=== PATIENT | male | born 1935 | race Caucasian/White ===

== ENCOUNTER 2019-06-09 11:09 | Emergency (ER) | payer OTHER, SELFPAY ==
[2019-06-09 11:18] VITALS: BP 125/95; PULSE 72; RESP 18; TEMP 36.7; O2SAT 99
--- NOTE | 2019-06-09 11:37 | DI.RAD.S_ITS ---
PROCEDURE: XR HIP W PEL IF DONE RT 2V INDICATIONS: R hip nontraumatic pain TECHNIQUE: AP pelvis with lateral view(s) of the right hip(s). COMPARISON: [facility], , ABDOMEN ACUTE SERIES, 05/21/2017, 8:56. FINDINGS: Bones: No fractures or dislocations. Pelvic ring appears intact. No suspicious bony lesions. There is mild to moderate superior joint space narrowing seen of both hips, with associated remodeling changes with subchondral sclerosis and osteophyte formation. Soft tissues: The visualized bowel gas pattern is normal. No suspicious soft tissue calcifications. 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 Dictated by: Kelton Lane M.D. on 06/09/2019 at 11:03 Approved by: Kelton Lane M.D. on 06/09/2019 at 11:05
--- NOTE | 2019-06-09 11:41 | ED_ITS ---
HPI - Back Pain/Injury <JUAN Rod - Last Filed: 06/09/19 23:32> General Chief Complaint: Back Pain/Injury Stated Complaint: R HIP/LEG/BACK PAIN Time Seen by Provider: 06/09/19 11:16 Source: patient and family Mode of arrival: wheelchair Limitations: no limitations History of Present Illness HPI Narrative: This is a 89-year-old gentleman, prior smoker, presents with with chief complaint of right lateral hip pain which radiates to right posterior calf for several months. However the severity of pain has been worse recently and has been the ability hitting the patient. Usually uses a walker or cane for mobility. Patient denies incontinence, tingling numbness to groin areas, fever/chills, rash on his back. Patient has been followed with his primary care physician on this back pain issues but PCP is away for another week. Patient has established with pain management and physical therapy in the past as well had not follow through. Patient also states he has urinary difficulty with the flow but no other urinary symptoms such as discomfort, frequency, urgency. Related Data Home Medications Medication Instructions Recorded Confirmed allopurinol 300 mg PO HS #0 06/30/12 metoprolol tartrate 100 mg PO BID #0 01/24/13 warfarin [Coumadin] 10 mg PO SEE INSTRUCTIONS #0 01/24/13 warfarin [Coumadin] 7.5 mg PO SEE INSTRUCTIONS #0 06/07/17 polyethylene glycol 3350 [Miralax] 17 gm PO QDAY #0 07/15/17 Previous Rx's Medication Instructions Recorded cyclobenzaprine 5 mg PO BEDTIME PRN #7 tab 06/09/19 lidocaine 1 patch TOP DAILY #15 each 06/09/19 prednisone 40 mg PO DAILY 4 Days #8 tab 06/09/19 Allergies Allergy/AdvReac Type Severity Reaction Status Date / Time lisinopril [LISINOPRIL] AdvReac Mild NAUSEA Verified 06/09/19 11:26 Review of Systems <JUAN Rod - Last Filed: 06/09/19 23:32> Review of Systems General: Denies fever, chills, fatigue, malaise, sweats. HEENT: Denies sinus pain, ear pain, sore throat, difficulty swallowing, dizziness. Respiratory: Denies dyspnea, cough, wheezing, hemoptysis, sputum. Cardiovascular: Denies chest pain, palpitations, orthopnea, edema. Gastrointestinal: Denies nausea, vomiting, abdominal pain, diarrhea, constipation, melena. : See HPI Musculoskeletal: See HPI Skin: Denies rash, skin lesions, or other. Neurologic: Denies weakness, headache, numbness, change in speech, confusion, seizures, incoordination. Psychiatric: No concerning psychosocial issues. 12-point review of systems is negative except for those stated above. PFSH <JUAN Rod - Last Filed: 06/09/19 23:32> Medical History (Updated 06/09/19 @ 23:17 by JUAN Rod) Afib (Acute) Back pain (Acute) Constipation (Chronic) Tremor of right hand (Chronic) Social History Smoking Status: Former smoker Social History Smoking Status: Former smoker Exam <JUAN Rod - Last Filed: 06/09/19 23:32> Narrative Exam Narrative: GEN: Alert, oriented x 3, well appearing and nourished, and in no acute distress. Head: Normal cephalic, atraumatic. No scalp or temporal tenderness, palpable mass or rash. EYES: Pupils are equal, round, and reactive to light and accommodation. Extraocular muscles are intact bilaterally. There is no subconjunctival hemorrhage, exudate and sclera non-icteric. ENT: Nose without bleeding, purulent discharge. Mucous membrane moist, no mucosal lesion. Throat without erythema, tonsillar hypertrophy or exudate. Uvula in midline, airway patent. Neck: Trachea in midline. No JVD, non-tender without lymphadenopathy. No masses or thyroid megaly. Supple, non-tender and no meningeal signs. CARDIAC: Normal regular rate and rhythm without murmurs, gallops, or rubs. No chest wall tenderness. No peripheral edema, cyanosis or pallor. Capillary refill is less than 2 seconds. RESPIRATORY: Lungs are cleat to auscultate bilaterally. No cough, wheezes, rales, or rhonchi. No stridor, respiratory distress, increase work of breathing, or accessary muscle used. ABD: Abdomen soft, nontender and non-distended. No guarding or rebound tenderness to palpate. Bowel sounds are normal in all 4 quadrants. There is no palpable masses or organomegaly. EXT: Full painless ROM of all extremities with no loss of sensation, strength, effusion or edema. SKIN: Warm, dry, normal color for patient. No erythema, lesions or rash over visible areas. BACK: Nontender without deformity or crepitance. No flank tenderness. Postive for R leg raise test. 2+ Patella tendon reflex on RLE, 1+ PTR on LLE. No rashe s. No swelling, edema, erythema noted in low back or R hip. NEUROLOGICAL: Alert and oriented to place, time and person. Sensation and motor function intact bilaterally. No facial droops, dysphasia. PSYCHIATRIC: Good judgement and reason, without hallucinations, abnormal affect or abnormal behaviors during the examination. Patient is not suicidal. Initial Vital Signs Initial Vital Signs: Vital Signs Temperature 98.1 F 06/09/19 11:18 Pulse Rate 72 06/09/19 11:18 Respiratory Rate 18 06/09/19 11:18 Blood Pressure 125/95 H 06/09/19 11:18 Pulse Oximetry 99 06/09/19 11:18 <Shorty Shirley DO - Last Filed: 06/12/19 19:10> Initial Vital Signs Initial Vital Signs: Vital Signs Temperature 98.1 F 06/09/19 11:18 Pulse Rate 72 06/09/19 11:18 Respiratory Rate 18 06/09/19 11:18 Blood Pressure 125/95 H 06/09/19 11:18 Pulse Oximetry 99 06/09/19 11:18 Scores <JUAN Rod - Last Filed: 06/09/19 23:32> GCS [place] coma scale eye opening: Spontaneous Mary coma scale verbal response: Orientated Mary coma scale motor response: Obey commands Mary coma scale total score: 15 Course <JUAN Rod - Last Filed: 06/09/19 23:32> Orders Ordered: Discontinued Medications Cyclobenzaprine HCl (Flexeril) 5 mg PO NOW ONE Stop: 06/09/19 11:38 Last Admin: 06/09/19 11:52 Dose: 5 mg Lidocaine (Lidoderm) 1 each TOP NOW ONE Stop: 06/09/19 12:38 Last Admin: 06/09/19 12:58 Dose: 1 each Prednisone (Deltasone) 40 mg PO NOW ONE Stop: 06/09/19 11:38 Last Admin: 06/09/19 11:52 Dose: 40 mg Vital Signs - 8 hr 06/09/19 11:18 06/09/19 12:19 Temperature 98.1 F Pulse Rate 72 66 Respiratory Rate 18 Blood Pressure 125/95 H Blood Pressure [Left Arm] 124/70 Pulse Oximetry 99 97 <Shorty Shirley DO - Last Filed: 06/12/19 19:10> Orders Ordered: Discontinued Medications Cyclobenzaprine HCl (Flexeril) 5 mg PO NOW ONE Stop: 06/09/19 11:38 Last Admin: 06/09/19 11:52 Dose: 5 mg Lidocaine (Lidoderm) 1 each TOP NOW ONE Stop: 06/09/19 12:38 Last Admin: 06/09/19 12:58 Dose: 1 each Prednisone (Deltasone) 40 mg PO NOW ONE Stop: 06/09/19 11:38 Last Admin: 06/09/19 11:52 Dose: 40 mg Vital Signs - 8 hr 06/09/19 11:18 06/09/19 12:19 Temperature 98.1 F Pulse Rate 72 66 Respiratory Rate 18 Blood Pressure 125/95 H Blood Pressure [Left Arm] 124/70 Pulse Oximetry 99 97 MDM - Back Pain/Injury <JUAN Rod - Last Filed: 06/09/19 23:32> Differential Diagnosis Differential diagnosis: Likely lumbar radiculopathy, sciatica, strain of lumbar region, pyelonephritis and discitis Medical Records Attestation: I reviewed the patient's medical records. Lab Data Urine Dip Bedside Urine Glucose Negative Bedside Urine Bilirubin - Negative Bedside Urine Ketone - Negative Urine Specific Comins 1.020 Bedside Urine Occult Blood - Negative Bedside Urine pH 6.0 Bedside Urine Protein + 30 Bedside Urine Urobilinogen 1+ 2mg Bedside Urine Nitrite - Negative Bedside Urine Leukocytes - Negative Esterase Imaging Data XR-Hip R: Radiologist's impression: [address] [address] XRay Report Signed Patient: Sreekanth Erickson WMR#: [id number] : 1935Acct:[id number] Age/Sex: 84 / MDate of Service: 06/09/19 Loc: ED Accession Number: [id number] Procedure: XR hip w pel if done RT 2V Ordering Provider: [place] PROCEDURE: XR HIP W PEL IF DONE RT 2V INDICATIONS: R hip nontraumatic pain TECHNIQUE: AP pelvis with lateral view(s) of the right hip(s). COMPARISON: [facility], , ABDOMEN ACUTE SERIES, 05/21/2017, 8:56. FINDINGS: Bones: No fractures or dislocations. Pelvic ring appears intact. No suspicious bony lesions. There is mild to moderate superior joint space narrowing seen of both hips, with associated remodeling changes with subchondral sclerosis and osteophyte formation. Soft tissues: The visualized bowel gas pattern is normal. No suspicious soft tissue calcifications. 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 Dictated by: Kelton Lane M.D. on 06/09/2019 at 11:03 Approved by: Kelton Lane M.D. on 06/09/2019 at 11:05 [facility] Narrative Medical decision making narrative: This is a 84-year-old male presents with spouse with chronic right-sided low back pain/hip pain that radiates to the right posterior calf. Patient currently uses gabapentin for pain but does not think this helps with his pain. According to the patient and spouse, patient had completed physical therapy last year for couple of sessions but did not follow through. Patient also was evaluated by paint specialist but had not follow through with the recommendations. Spouse answers most of the questions for patient and expresses her concerns during the exam. She reports is hoping to find the home health care case manager assistance since they both now have difficulty with health and pain issues. Patient reports increasing pain with movements and ambulation. However, there was no neurologic deficit per exam. Urine sample was obtained for difficulty initiating urine stream, has no indications for infection. Right hip x-ray was done with no acute findings such as fractures or dislocations. However there was mild to moderate degenerative changes are seen on both hips. The patient was medicated with oral prednisone, Flexeril. Patient currently takes Coumadin and is not to take additional NSAIDs. During the stay in the ED, patient's spouse informed the nursing staff that very briefly patient had difficult time moving his right arm. Neurological exam was done with normal findings. The patient and spouse informed could be from Flexeril that patient was given for muscle relaxant. Lidocaine patch was applied on affected hip area for discomfort. Patient was able to ambulate with a walker in ED in stable gait and patient reports improved in back/hip discomfort. Return precautions were discussed with patient and spouse. Questions answered to apparent satisfaction. Patient discharged to home with a short course of steroids, Flexeril for night dose, and lidocaine patch. Flexeril medication precautions also discussed with patient and spouse. <Shorty Shirley, DO - Last Filed: 06/12/19 19:10> Lab Data Urine Dip Bedside Urine Glucose Negative Bedside Urine Bilirubin - Negative Bedside Urine Ketone - Negative Urine Specific Comins 1.020 Bedside Urine Occult Blood - Negative Bedside Urine pH 6.0 Bedside Urine Protein + 30 Bedside Urine Urobilinogen 1+ 2mg Bedside Urine Nitrite - Negative Bedside Urine Leukocytes - Negative Esterase Discharge Plan Departure Patient Disposition: Home Clinical Impression: Back pain Qualifiers: Back pain location: low back pain Chronicity: chronic Back pain laterality: right Sciatica presence: with sciatica Sciatica laterality: sciatica of right side Qualified Code(s): M54.41 - Lumbago with sciatica, right side Discharge Date/Time: 06/09/19 14:17 Interventions: ED Discharge Assessment Last Done: 06/09/19 14:03 Instructions: DI for Back Pain With Sciatica Activity Restrictions/Additional Instructions: You have been diagnosed with [right low back/hip pain radiating to calf. Per x- ray test today such as fractures or dislocation but there was some degenerative changes noted in bilateral hip]. What to do: *Take your medications as directed. He can take Tylenol as needed for pain. He can use lidocaine patch on painful area on for 12 hours and off for 12 hours. Please take Flexeril as needed for muscle relaxant at night. This medication can cause drowsiness so please take precautions as not driving, not operating heavy equipment, not drinking alcohol. Prednisone can increase your blood sugar and may interferes with her sleep. *Follow up with your primary care provider in 2-3 days, call for an appointment. Let them know you were seen in the ED and that we asked you to be seen in follow up. *Return to ED if you have any new, worsening, or concerning symptoms, such as [increasing pain, fever, rash, tingling numbness/weakness to her extremities or groin area, chest pain, breathing difficulty, any acute concerns]. Prescriptions: New prednisone 20 mg tablet 40 mg PO DAILY 4 Days Qty: 8 RF: 0 lidocaine 5 % adhesive patch,medicated 1 patch TOP DAILY Qty: 15 RF: 0 cyclobenzaprine 5 mg tablet 5 mg PO BEDTIME PRN (Reason: muscle spasm) Qty: 7 RF: 0 No Action allopurinol 100 MG tablet 300 mg PO HS Qty: 0 RF: 0 metoprolol tartrate 100 MG tablet 100 mg PO BID Qty: 0 RF: 0 warfarin [Coumadin] 5 MG tablet 10 mg PO SEE INSTRUCTIONS Qty: 0 RF: 0 warfarin [Coumadin] 5 MG tablet 7.5 mg PO SEE INSTRUCTIONS Qty: 0 RF: 0 polyethylene glycol 3350 [Miralax] 119 GM powder 17 gm PO QDAY Qty: 0 RF: 0 Referrals: Martin Puente MD [Primary Care Provider] - <Shorty Shirley DO - Last Filed: 06/12/19 19:10> Cosign ED Attending Veronica Attestation: I was available for consultation during this patient's emergency department encounter
[2019-06-09] MEDS: CYCLOBENZAPRINE 5 MG TABLET PO (11:52)
[2019-06-09] MEDS: predniSONE 20 MG TABLET 40 MG PO (11:52)
[2019-06-09 12:19] VITALS: BP 124/70; PULSE 66; O2SAT 97
--- NOTE | 2019-06-09 12:33 | PC.NURSE ---
pt reports after the flexeril that his right arm was feeling weak. New, DATA PROCESSING SYSTEMS CONSULTANT at bedside to evaluate.
[2019-06-09] MEDS: LIDOCAINE PATCH 1 EACH ADH..PATCH TOP (12:58)
[2019-06-09 13:31] VITALS: BP 126/69; PULSE 64; RESP 23; O2SAT 97
== END 2019-06-09 14:17 | disposition home or self-care (01) ==
PROVIDERS: Emergency Provider Nurse Practitioner Family; PCP Family Medicine
DX: M54.41 Lumbago with sciatica, right side (principal)
CPT/HCPCS: 73502; 81003; 99282; 99284

== ENCOUNTER 2019-07-11 07:51 | Emergency (ER) | payer OTHER, SELFPAY ==
--- NOTE | 2019-07-11 07:59 | DI.CT.S_ITS ---
PROCEDURE: CT HEAD/BRAIN WO CON INDICATIONS: stroke symptoms x3 days TECHNIQUE: Noncontrast 4.5 mm thick angled axial sections acquired from the foramen magnum to the vertex, with coronal and sagittal reformats. For radiation dose reduction, the following was used: automated exposure control, adjustment of mA and/or kV according to patient size. COMPARISON: None. FINDINGS: Image quality: Excellent. CSF spaces: Basal cisterns are patent. There is a oval hyperdense extra-axial collection along right high parietal convexity and measures up to 1.2 cm in thickness consistent with acute subdural hematoma. No other area of extra-axial fluid collection. The ventricles are symmetric in size and shape. Brain: There is no evidence of acute intraparenchymal hemorrhage. The There is cerebral volume loss for age, with resultant ventricular and sulcal prominence. There are periventricular and deep white matter chronic small vessel ischemic changes. There is intracranial internal carotid artery atherosclerosis. Skull and face: Calvarium and visualized facial bones appear intact, without suspicious lesions. Sinuses: Visualized sinuses and mastoids are clear. IMPRESSION: 1. Acute appearing right high parietal subdural hematoma measuring up to 1.2 cm in thickness with mild mass effect on the adjacent right cerebral hemisphere. 2. No acute intraparenchymal hemorrhage. No midline shift. 3. Age-appropriate atrophy and mild periventricular white matter chronic ischemic changes. Findings were reported to Dr. Valle in ER at 8:25 AM on 07/11/19. Dictated by: Alexis Miller M.D. on 07/11/2019 at 8:20 Approved by: Alexis Miller M.D. on 07/11/2019 at 8:26
[2019-07-11 08:01] VITALS: BP 144/105; PULSE 76; RESP 16; TEMP 36.8; O2SAT 97; BMI 36.0
--- NOTE | 2019-07-11 08:03 | ED.NEUROSD ---
HPI - Neuro Symptoms/Deficit General Chief Complaint: Neuro Symptoms/Deficit Stated Complaint: Stroke like symptoms Time Seen by Provider: 07/11/19 07:51 Source: patient and EMS Mode of arrival: EMS Limitations: no limitations History of Present Illness HPI Narrative: 84-year-old male former smoker with history of hypertension, hyperlipidemia and AFib on Coumadin presents by EMS with 3 days of ongoing neurologic symptoms including left hand difficulty and trouble with speech. The symptoms started 3 days ago and have not improved, this patient was not activated as a code stroke as we do not fit any time lines. Patient was transported by EMS. His primary care provider is Dr. Puente. He denies any pain, trauma or falls. Onset (ago): day(s) Location: speech and left face History of same: No Severity: moderate Quality: weak and tingling Relieving factors: none Exacerbating factors: none On Anticoagulants: Yes Associated symptoms: denies other symptoms Treatments Prior to Arrival: none Related Data Home Medications Medication Instructions Recorded Confirmed allopurinol 300 mg PO HS #0 06/30/12 07/11/19 metoprolol tartrate 100 mg PO BID #0 01/24/13 07/11/19 warfarin [Coumadin] 10 mg PO SEE INSTRUCTIONS #0 01/24/13 07/11/19 warfarin [Coumadin] 7.5 mg PO SEE INSTRUCTIONS #0 06/07/17 07/11/19 polyethylene glycol 3350 [Miralax] 17 gm PO QDAY #0 07/15/17 gabapentin 600 mg PO BID 07/11/19 07/11/19 Previous Rx's Medication Instructions Recorded cyclobenzaprine 5 mg PO BEDTIME PRN #7 tab 06/09/19 lidocaine 1 patch TOP DAILY #15 each 06/09/19 Allergies Allergy/AdvReac Type Severity Reaction Status Date / Time lisinopril [LISINOPRIL] AdvReac Mild NAUSEA Verified 07/11/19 08:06 Review of Systems Constitutional Constitutional: Denies chills, Denies fatigue, Denies fever(s), Denies frequent falls, Denies lethargy and Reports weakness Eyes Eyes: Denies change in vision, Denies eye discharge, Denies irritation and Denies loss of vision ENT Ears, Nose, Mouth, and Throat: Denies change in voice, Denies dizziness, Denies neck pain, Denies sore throat and Denies throat swelling Cardiovascular Cardiovascular: Denies chest pain, Denies irregular heart rhythm, Denies lightheadedness, Denies palpitations, Denies dyspnea, Denies dyspnea on exertion and Denies orthopnea Respiratory Respiratory: Denies cough, Denies dyspnea, Denies dyspnea on exertion and Denies wheezing Gastrointestinal Gastrointestinal: Denies abdominal pain, Denies change in bowel habits, Denies diarrhea, Denies nausea and Denies vomiting Genitourinary Genitourinary: Denies hematuria, Denies flank pain, Denies urinary incontinence and Denies urinary urgency Musculoskeletal Musculoskeletal: Denies back pain, Denies muscle weakness, Denies neck pain, Denies numbness and Denies tingling Integumentary/Breasts Skin/Breast: Denies pruritus, Denies erythema, Denies rash and Denies wounds Neurologic Neurologic: Reports abnormal speech, Denies behavioral changes, Denies confusion, Denies dizziness, Denies frequent falls, Denies loss of vision, Denies numbness, Denies tingling and Reports weakness Psychiatric Psychiatric: Denies anxiety, Denies behavioral changes, Denies confusion, Denies depression, Denies homicidal ideation and Denies suicidal ideation Endocrine Endocrine: Denies fatigue, Denies flushing and Denies palpitations Hematologic/Lymphatic Hematologic/Lymphatic: Denies easy bruising Allergic/Immunologic Allergic/Immunologic: Denies urticaria, Denies throat swelling and Denies wheezing [facility] Medical History Afib (Acute) Back pain (Acute) Constipation (Chronic) Tremor of right hand (Chronic) Social History Smoking Status: Former smoker Social History Smoking Status: Former smoker Exam Narrative Exam Narrative: GENERAL: [84] year old patient appears stated age. Well-nourished, well-developed patient, in mild distress. HEAD: Atraumatic. Normocephalic. EYES: Pupils equal round and reactive. Extraocular motions intact. No scleral icterus. No injection or drainage. ENT: Nose without bleeding, purulent drainage. Throat without erythema, tonsillar hypertrophy or exudate. Airway patent. NECK: Trachea midline. Non tender CARDIOVASCULAR: Irregular rate and rhythm without murmurs, gallops, or rubs. RESPIRATORY: Clear to auscultation. Breath sounds equal bilaterally. No wheezes, rales, or rhonchi. GASTROINTESTINAL: Abdomen soft, non-tender, nondistended. EXTREMITIES: No edema or joint tenderness. BACK: Nontender without deformity or crepitance. No flank tenderness. NEURO: AOx3. SKIN: No rash or erythema of visible areas Initial Vital Signs Initial Vital Signs: Vital Signs Temperature 98.3 F 07/11/19 08:01 Pulse Rate 76 07/11/19 08:01 Respiratory Rate 16 07/11/19 08:01 Blood Pressure 144/105 H 07/11/19 08:01 Pulse Oximetry 97 07/11/19 08:01 Scores NIH Stroke Scale Level of Conciousness: Alert, keenly responsive Ask month/age: Answers both questions correctly. Open/close eyes, close hand: Performs both tasks correctly Best gaze horizontal: Normal Visual manzano: No visual loss Facial palsy: Minor paralysis, flattened nasolabial fold, asymmetry on smiling Left arm drift: Drifts down, not to bed Right arm drift: No drift for full 10 sec Left leg drift: No drift for full 10 sec Right leg drift: No drift for full 10 sec Limb ataxia: Present in one limb Sensory on face/arms/legs: Normal, no sensory loss Best language: No aphasia, normal Dysarthria: Mild to mod,some slurring Extinction or inattention: No abnormality Total NIH Stroke scale score: 4 Course Orders Ordered: ED Orders 07/11/19 07:59 CT head/brain wo con Stat Urine Drug Screen, Rapid Stat EKG-12 Lead Stat 07/11/19 08:19 Basic Metabolic Panel Stat Complete Blood Count AUTO DIFF Stat Partial Thromboplastin Time Stat Prothrombin Time INR Stat Sodium Chloride (Normal Saline 0.9%) 1,000 mls @ 150 mls/hr IV CONT SHRUTHI Last Admin: 07/11/19 08:16 Dose: 150 mls/hr Documented by: MACK Discontinued Medications Aspirin (Aspirin Chew) 324 mg PO NOW ONE Stop: 07/11/19 08:00 Last Admin: 07/11/19 08:15 Dose: 324 mg Documented by: MACK Phytonadione 10 mg/ Dextrose 51 mls @ 102 mls/hr IV NOW ONE Stop: 07/11/19 08:29 Last Admin: 07/11/19 08:47 Dose: 102 mls/hr Documented by: REYES Prothrombin Complex Concent ( Human) 2,500 unit/Miscellaneous 100 mls @ 892.08 mls/hr IV NOW ONE; Protocol Stop: 07/11/19 08:43 Last Infusion: 07/11/19 09:08 Dose: 0 unit/kg/min, 0 mls/hr Documented by: Admin: 07/11/19 08:58 Dose: 3 unit/kg/min, 892.08 mls/hr Documented by: MACK Consultations Consultation #1: calls to [facility], and [facility] Dr. Lucas ([facility]) happy to accept. No strict BP goals [facility] - give consent to transfer to [facility] and will make a note in their records Dr. Puente called to give update Patient ([place]) will arrive at [facility] by POV. [phone] (home phone), she has no cell phone Vital Signs Vital signs: Vital Signs - 8 hr 07/11/19 08:01 07/11/19 08:30 Temperature 98.3 F Pulse Rate 76 69 Respiratory Rate 16 27 H Blood Pressure 144/105 H Blood Pressure [Left Arm] 144/88 H Pulse Oximetry 97 94 MDM - Neuro Symptoms/Deficit Lab Data Attestation: I reviewed the patient's lab results. Result diagrams: 07/11/19 08:19 07/11/19 08:19 Labs: Lab Results 07/11/19 07/11/19 07/11/19 Range/Units 08:19 08:19 08:19 WBC 8.3 (4.5-11.0) X10^3/uL RBC 4.69 (4.5-5.9) X10^6/uL Hgb 15.1 (13.5-17.5) g/dL Hct 44.6 (41-53) % MCV 95.0 (80-100) fL MCH 32.3 (26-34) PG MCHC 34.0 (30-36) % RDW 15.7 H (11.6-14.8) % Plt Count 165 (150-400) X10^3/uL Neut % (Auto) 69.2 (50-75) % Lymph % (Auto) 16.4 L (25-40) % [place] % (Auto) 10.9 (3-14) % Eos % (Auto) 3.0 (2-4) % Baso % (Auto) 0.5 (0-2) % Neut # (Auto) 5800 (6829-3700) /uL Lymph # (Auto) 1400 (6445-6018) /uL [place] # (Auto) 900 (0-900) /uL Eos # (Auto) 300 (0-450) /uL Baso # (Auto) 0 (0-100) /uL PT 25.4 H (10.1-12.7) SECONDS INR 2.2 H (0.9-1.3) APTT 44 H (26.4-36.2) SECONDS Sodium 140 (137-145) mmol/L Potassium 5.0 (3.4-5.1) mmol/L Chloride 103 (98-107) mmol/L Carbon Dioxide 28 (22-32) mmol/L BUN 29 H (9-20) mg/dL Creatinine 1.10 (0.66-1.25) mg/dL Estimated GFR > 60.0 (>60) mL/min BUN/Creatinine Ratio 26.4 H (6-22) Glucose 106 (80-110) mg/dL Calcium 9.9 (8.4-10.2) mg/dL Point of Care Testing Glucose POC [address] scan - head: Radiologist's impression: [address] [address] [address] Scan Report Signed Patient: Sreekanth Erickson WMR#: [id number] : 6Acct:[id number] Age/Sex: 84 / MDate of Service: 07/11/19 Loc: ED Accession Number: [id number] Procedure: CT head/brain wo con Ordering Provider: Luis Felipe Valle D.O. PROCEDURE: CT HEAD/BRAIN WO CON INDICATIONS: stroke symptoms x3 days TECHNIQUE: Noncontrast 4.5 mm thick angled axial sections acquired from the foramen magnum to the vertex, with coronal and sagittal reformats. For radiation dose reduction, the following was used: automated exposure control, adjustment of mA and/or kV according to patient size. COMPARISON: None. FINDINGS: Image quality: Excellent. CSF spaces: Basal cisterns are patent. There is a oval hyperdense extra-axial collection along right high parietal convexity and measures up to 1.2 cm in thickness consistent with acute subdural hematoma. No other area of extra-axial fluid collection. The ventricles are symmetric in size and shape. Brain: There is no evidence of acute intraparenchymal hemorrhage. The There is cerebral volume loss for age, with resultant ventricular and sulcal prominence. There are periventricular and deep white matter chronic small vessel ischemic changes. There is intracranial internal carotid artery atherosclerosis. Skull and face: Calvarium and visualized facial bones appear intact, without suspicious lesions. Sinuses: Visualized sinuses and mastoids are clear. IMPRESSION: 1. Acute appearing right high parietal subdural hematoma measuring up to 1.2 cm in thickness with mild mass effect on the adjacent right cerebral hemisphere. 2. No acute intraparenchymal hemorrhage. No midline shift. 3. Age-appropriate atrophy and mild periventricular white matter chronic ischemic changes. Findings were reported to Dr. Valle in ER at 8:25 AM on 07/11/19. Dictated by: Alexis Miller M.D. on 07/11/2019 at 8:20 Approved by: Alexis Miller M.D. on 07/11/2019 at 8:26 MDM Narrative Medical decision making narrative: 84M on coumadin for afib with stroke symptoms for 3 days. Absolutely denies any trauma, even slight head bumps. CT notes SDH with minimal shift. INR 2.2, patient given Vit K and KCentra. Bone contacted, [facility] is appropriate facility. [facility] happy to accept. Patient and family have been informed and have had questions answered to their apparent satisfaction. Images pushed. DEANA paperwork signed and filled out Discharge Plan Departure Patient Disposition: Xfer Acute [facility] Clinical Impression: Warfarin anticoagulation, Acute subdural hematoma Prescriptions: No Action allopurinol 100 MG tablet 300 mg PO HS Qty: 0 RF: 0 metoprolol tartrate 100 MG tablet 100 mg PO BID Qty: 0 RF: 0 warfarin [Coumadin] 5 MG tablet 10 mg PO SEE INSTRUCTIONS Qty: 0 RF: 0 warfarin [Coumadin] 5 MG tablet 7.5 mg PO SEE INSTRUCTIONS Qty: 0 RF: 0 polyethylene glycol 3350 [Miralax] 119 GM powder 17 gm PO QDAY Qty: 0 RF: 0 gabapentin 300 mg Capsule 600 mg PO BID RF: 0 lidocaine 5 % adhesive patch,medicated 1 patch TOP DAILY Qty: 15 RF: 0 cyclobenzaprine 5 mg tablet 5 mg PO BEDTIME PRN (Reason: muscle spasm) Qty: 7 RF: 0 Referrals: Martin Puente MD [Primary Care Provider] -
[2019-07-11] MEDS: ASPIRIN 81 MG CHEW TAB 324 MG PO (08:15)
[2019-07-11] MEDS: SODIUM CHLORIDE 0.9% 1,000 ML 150 ML IV (08:16)
[2019-07-11 08:30] VITALS: BP 144/88; PULSE 69; RESP 27; O2SAT 94
[2019-07-11 08:31] LABS: Add Manual Diff / Slide Review NO; Basophils Absolute Auto 0 /uL (0-100); Basophils Percent Auto 0.5 % (0-2); Eosinophils Absolute Auto 300 /uL (0-450); Hematocrit 44.6 % (41-53); Hemoglobin 15.1 g/dL (13.5-17.5); Lymphocytes Absolute Auto 1400 /uL (1100-4500); Lymphocytes Percent Auto 16.4 % (25-40); Mean Corpuscular Hemoglobin 32.3 PG (26-34); Monocytes Absolute Auto 900 /uL (0-900); Monocytes Percent Auto 10.9 % (3-14); Neutrophils Absolute Auto 5800 /uL (1500-7000); Neutrophils Percent Auto 69.2 % (50-75); Platelet Count 165 X10^3/uL (150-400); Red Blood Cell Count 4.69 X10^6/uL (4.5-5.9); Red Cell Distribution Width 15.7 % (11.6-14.8); White Blood Cell Count 8.3 X10^3/uL (4.5-11.0)
[2019-07-11 08:35] LABS: INR 2.2 (0.9-1.3); Prothrombin Time 25.4 SECONDS (10.1-12.7)
[2019-07-11 08:37] LABS: PTT Partial Thromboplastin Tim 44 SECONDS (26.4-36.2)
[2019-07-11 08:40] LABS: BUN Creatinine Ratio 26.4 (6-22); Blood Urea Nitrogen 29 mg/dL (9-20); Calcium 9.9 mg/dL (8.4-10.2); Carbon Dioxide 28 mmol/L (22-32); Chloride 103 mmol/L (98-107); Estimated Glomerular Filt Rate > 60.0 mL/min (>60); Glucose 106 mg/dL (80-110); HEMOLYSIS < 15 (0-50); Sodium 140 mmol/L (137-145)
[2019-07-11] MEDS: PHYTONADIONE (VIT K1) 10 MG in DEXTROSE 5 % IN WATER 50 ML 102 ML IV (08:47)
[2019-07-11] MEDS: PROTHROMBIN CPLX(PCC)4FACT 2,500 UNIT in ISOOSMOTIC VEHICLE 0 ML 892.08 ML IV (08:58)
[2019-07-11 09:27] VITALS: BP 142/83; PULSE 73; RESP 17; O2SAT 94
== END 2019-07-11 09:29 | disposition short-term general hospital (02) ==
PROVIDERS: Emergency Provider Emergency Medicine; PCP Family Medicine
DX: S06.5X0A Traumatic subdural hemorrhage without loss of consciousness, initial encounter (principal); Z79.01 Long term (current) use of anticoagulants
CPT/HCPCS: 36415; 70450; 80048; 82962; 85025; 85610; 85730; 93005; 96361; 96374; 99283; 99291; 99292; C9132; J3430

== ENCOUNTER 2019-09-09 14:07 | Emergency (ER) | payer OTHER, SELFPAY ==
--- NOTE | 2019-09-09 14:18 | DI.RAD.S_ITS ---
PROCEDURE: XR ACUTE ABDOMEN SERIES INDICATIONS: constipation, recent feeding tube removal per pt TECHNIQUE: One view chest and two views of the abdomen were acquired. COMPARISON: [facility], , ABDOMEN ACUTE SERIES, 05/21/2017, 8:56. FINDINGS: Surgical changes and devices: Postoperative changes of the lower cervical spine are not well characterized. Chest: Elevation of the right diaphragm is new since the prior study. There is mild linear atelectasis at the right lung base. Otherwise, the lungs are well aerated. There is no large effusion or pneumothorax. Heart size is enlarged. No pleural effusions. No pneumoperitoneum. There is aortic atherosclerosis. Abdomen: Bowel gas no air-filled distended small bowel loops are identified demonstrating air-fluid levels. Contrast material is seen within the distal small bowel and colon. Large amount of stool is seen throughout the colon. No suspicious calcifications. Visualized solid organ contours appear normal. Bones: No suspicious bony lesions. IMPRESSION: 1. Findings are suggestive of prominent constipation. There is no bowel obstruction. 2. Elevated right diaphragm is new since the prior study and may be related to atelectasis or diaphragmatic paralysis. Please correlate clinically. Dictated by: Kevin Gomez M.D. on 09/09/2019 at 13:44 Approved by: Kevin Gomez M.D. on 09/09/2019 at 13:46
[2019-09-09 14:19] VITALS: BP 121/74; PULSE 71; RESP 20; TEMP 36.4; O2SAT 99
--- NOTE | 2019-09-09 18:07 | ED_ITS ---
HPI - Abdominal Pain <DAYO Leavitt - Last Filed: 09/09/19 18:25> General Chief Complaint: Abdominal Pain Stated Complaint: constipation Time Seen by Provider: 09/09/19 16:45 Source: patient and family Mode of arrival: Ambulatory Limitations: no limitations History of Present Illness HPI narrative: The patient is an 84-year-old male former smoker with history of subdural hematoma presents with his for chief complaint of no bowel movement for the past 10 days. Patient normally goes 8-10 days without a bowel movement. He was recently changed from tube feeds to oral feeding. The patient denies any fevers nausea vomiting. He states he is eating and drinking well. His is concerned has his initial stool was ?weird and white towards the ends of his tube feeds. The patient denies any abdominal pain. He has tried fleets enemas x2. Related Data Home Medications Medication Instructions Recorded Confirmed allopurinol 300 mg PO HS #0 06/30/12 07/11/19 metoprolol tartrate 100 mg PO BID #0 01/24/13 07/11/19 warfarin [Coumadin] 10 mg PO SEE INSTRUCTIONS #0 01/24/13 07/11/19 warfarin [Coumadin] 7.5 mg PO SEE INSTRUCTIONS #0 06/07/17 07/11/19 polyethylene glycol 3350 [Miralax] 17 gm PO QDAY #0 07/15/17 gabapentin 600 mg PO BID 07/11/19 07/11/19 Previous Rx's Medication Instructions Recorded cyclobenzaprine 5 mg PO BEDTIME PRN #7 tab 06/09/19 lidocaine 1 patch TOP DAILY #15 each 06/09/19 Allergies Allergy/AdvReac Type Severity Reaction Status Date / Time lisinopril [LISINOPRIL] AdvReac Mild NAUSEA Verified 07/11/19 08:06 Review of Systems <DAYO Leavitt - Last Filed: 09/09/19 18:25> Review of Systems Narrative: GENERAL: Denies chills, fatigue, malaise, fever, sweats. HEENT: Denies sinus pain, ear pain, sore throat, difficulty swallowing, dizziness. RESPIRATORY: Denies dyspnea, cough, wheezing, hemoptysis, sputum. CARDIOVASCULAR: Denies chest pain, palpitations, orthopnea, edema, GASTROINTESTINAL: See HPI : Denies dysuria, frequency, incontinence, hematuria, urinary retention. MUSCULOSKELETAL: denies weakness, joint pain, or bony pain SKIN: Denies rash, skin lesions, or other NEUROLOGIC: Denies weakness, headache, numbness, change in speech, confusion, seizures, incoordination. PSYCHIATRIC: No concerning psychosocial issues. 12 point review of systems is negative except for those stated above Patient History <DAYO Leavitt - Last Filed: 09/09/19 18:25> Medical History (Updated 09/09/19 @ 18:25 by DAYO Leavitt) Afib (Acute) Back pain (Acute) Constipation (Chronic) History of subdural hematoma (Acute) Tremor of right hand (Chronic) Social History Smoking Status: Former smoker alcohol intake frequency: 0-2 drinks per day Substance Use Type: does not use Exam <DAYO Leavitt - Last Filed: 09/09/19 18:25> Narrative Exam Narrative: GENERAL: This is a well-nourished, well-developed patient, in no acute distress wearing C-collar HEAD: Atraumatic. Normocephalic. No temporal or scalp tenderness. EYES: Pupils equal round and reactive. Extraocular motions intact. No scleral icterus. No injection or drainage. ENT: Nose without bleeding, purulent drainage or septal hematoma. Throat without erythema, tonsillar hypertrophy or exudate. Uvula midline. Airway patent. NECK: Trachea midline. No JVD or lymphadenopathy. Supple, nontender, no menin geal signs. CARDIOVASCULAR: Regular rate and rhythm RESPIRATORY: Clear to auscultation. Breath sounds equal bilaterally. No wheezes, rales, or rhonchi. No cough. No increased respiratory effort. No accessory muscle use. GASTROINTESTINAL: Abdomen soft, non-tender, nondistended. No hepato- splenomegaly, or palpable masses. No guarding. Active bowel sounds all 4 quadrants. Soft nontender to palpation. EXTREMITIES: No clubbing, cyanosis, or edema. No joint tenderness, effusion, or edema noted. BACK: Nontender without deformity or crepitance. No flank tenderness. Or NC call NEURO: AOx3. Stable gait. SKIN: No rash or erythema visible skin Initial Vital Signs Initial Vital Signs: Vital Signs Temperature 97.6 F 09/09/19 14:19 Pulse Rate 71 09/09/19 14:19 Respiratory Rate 20 09/09/19 14:19 Blood Pressure 121/74 09/09/19 14:19 Pulse Oximetry 99 09/09/19 14:19 <Luis Felipe Valle DO - Last Filed: 09/09/19 19:23> Initial Vital Signs Initial Vital Signs: Vital Signs Temperature 97.6 F 09/09/19 14:19 Pulse Rate 71 09/09/19 14:19 Respiratory Rate 20 09/09/19 14:19 Blood Pressure 121/74 09/09/19 14:19 Pulse Oximetry 99 09/09/19 14:19 Course <DAYO Leavitt - Last Filed: 09/09/19 18:25> Orders Ordered: ED Orders 09/09/19 14:18 XR acute abdomen series Stat Discontinued Medications Magnesium Citrate (Magnesium Citrate) 300 ml PO NOW ONE Stop: 09/09/19 17:57 Last Admin: 09/09/19 18:08 Dose: 300 ml Documented by: HARSHAL Vital Signs Vital signs: Vital Signs - 8 hr 09/09/19 14:19 09/09/19 18:16 Temperature 97.6 F Pulse Rate 71 70 Respiratory Rate 20 20 Blood Pressure 121/74 120/70 Pulse Oximetry 99 99 <Luis Felipe Valle DO - Last Filed: 09/09/19 19:23> Orders Ordered: ED Orders 09/09/19 14:18 XR acute abdomen series Stat Discontinued Medications Magnesium Citrate (Magnesium Citrate) 300 ml PO NOW ONE Stop: 09/09/19 17:57 Last Admin: 09/09/19 18:08 Dose: 300 ml Documented by: HARSHAL Vital Signs Vital signs: Vital Signs - 8 hr 09/09/19 14:19 09/09/19 18:16 Temperature 97.6 F Pulse Rate 71 70 Respiratory Rate 20 20 Blood Pressure 121/74 120/70 Pulse Oximetry 99 99 MDM - Abdominal Pain <DAYO Leavitt - Last Filed: 09/09/19 18:25> Imaging Data Chest x-ray: Radiologist's impression: [address] [address] XRay Report Signed Patient: Sreekanth Erickson WMR#: [id number] : 1935Acct:[id number] Age/Sex: 84 / MDate of Service: 09/09/19 Loc: ED Accession Number: [id number] Procedure: XR acute abdomen series Ordering Provider: Luis Felipe Valle D.O. PROCEDURE: XR ACUTE ABDOMEN SERIES INDICATIONS: constipation, recent feeding tube removal per pt TECHNIQUE: One view chest and two views of the abdomen were acquired. COMPARISON: [facility], ABDOMEN ACUTE SERIES, 05/21/2017, 8:56. FINDINGS: Surgical changes and devices: Postoperative changes of the lower cervical spine are not well characterized. Chest: Elevation of the right diaphragm is new since the prior study. There is mild linear atelectasis at the right lung base. Otherwise, the lungs are well aerated. There is no large effusion or pneumothorax. Heart size is enlarged. No pleural effusions. No pneumoperitoneum. There is aortic atherosclerosis. Abdomen: Bowel gas no air-filled distended small bowel loops are identified demonstrating air-fluid levels. Contrast material is seen within the distal small bowel and colon. Large amount of stool is seen throughout the colon. No suspicious calcifications. Visualized solid organ contours appear normal. Bones: No suspicious bony lesions. IMPRESSION: 1. Findings are suggestive of prominent constipation. There is no bowel obstruction. 2. Elevated right diaphragm is new since the prior study and may be related to atelectasis or diaphragmatic paralysis. Please correlate clinically. Dictated by: Kevin Gomez M.D. on 09/09/2019 at 13:44 Approved by: Kevin Gomez M.D. on 09/09/2019 at 13:46 MDM Narrative Medical decision making narrative: The patient is an 84-year-old male who presents with his for chief complaint of difficulty having a bowel movement constipation. The patient has no acute signs of a small-bowel obstruction, is not febrile with no abdominal pain, no vomiting and is passing gas. X-ray shows constipation with no small-bowel obstruction. X-ray is concerning for possible atelectasis, which correlates with patient's history per . The patient has been using enemas, but has not taken any oral motility or softening agents. I had a lengthy discussion with the patient and his including pushing fluids, pushing fiber, MiraLax, senna and docusate. Encourage PCP follow-up with the next few days. Discussed at length return precautions the emergency department including inability keep down fluids, abdominal pain with fever etc. Patient has no questions or concerns upon discharge and states understanding of return precautions as well as follow-up care. He is hemodynamically stable throughout his stay in the emergency department. He was discharged with magnesium citrate to take at home.. Discharge Plan Departure Patient Disposition: Left Against Medical Advice Clinical Impression: Constipation Qualifiers: Constipation type: unspecified constipation type Qualified Code(s): K59.00 - Constipation, unspecified Discharge Date/Time: 09/09/19 18:16 Instructions: DI for Constipation Activity Restrictions/Additional Instructions: Your x-ray shows no signs of a bowel obstruction, rather severe constipation. Please monitor for lack of gas, inability keep down fluids, severe abdominal pain, abdominal pain with fever or any acute concerns. Please come back To emergency department any acute concerns I suggest maintaining adequate hydration, MiraLax, docusate and senna to help move her bowels. Please follow up with primary care provider in the next few days. Please come back to the emergency department for any acute concerns Prescriptions: No Action allopurinol 100 MG tablet 300 mg PO HS Qty: 0 RF: 0 metoprolol tartrate 100 MG tablet 100 mg PO BID Qty: 0 RF: 0 warfarin [Coumadin] 5 MG tablet 10 mg PO SEE INSTRUCTIONS Qty: 0 RF: 0 warfarin [Coumadin] 5 MG tablet 7.5 mg PO SEE INSTRUCTIONS Qty: 0 RF: 0 polyethylene glycol 3350 [Miralax] 119 GM powder 17 gm PO QDAY Qty: 0 RF: 0 gabapentin 300 mg Capsule 600 mg PO BID RF: 0 lidocaine 5 % adhesive patch,medicated 1 patch TOP DAILY Qty: 15 RF: 0 cyclobenzaprine 5 mg tablet 5 mg PO BEDTIME PRN (Reason: muscle spasm) Qty: 7 RF: 0 Referrals: Martin Puente MD [Primary Care Provider] -
[2019-09-09] MEDS: MAGNESIUM CITRATE 300 ML SOLUTION PO (18:08)
[2019-09-09 18:16] VITALS: BP 120/70; PULSE 70; RESP 20; O2SAT 99
== END 2019-09-09 18:16 | disposition left against medical advice (07) ==
PROVIDERS: Emergency Provider Nurse Practitioner Family; PCP Family Medicine
DX: K59.00 Constipation, unspecified (principal)
CPT/HCPCS: 74022; 99282; 99283

== ENCOUNTER 2019-09-16 01:03 | Emergency (ER) | payer OTHER, SELFPAY ==
--- NOTE | 2019-09-16 01:12 | DI.RAD.S_ITS ---
PROCEDURE: XR CHEST 1V INDICATIONS: Eval for pneumonia TECHNIQUE: One view of the chest was acquired. COMPARISON: [facility], , CHEST 1 VIEW, 05/20/2017, 10:45. FINDINGS: Surgical changes and devices: Cervical spine fixation hardware is partially seen. Lungs and pleura: Low lung volumes are noted. This causes a crowded appearance to the lung markings and limits evaluation. Mild, streaky opacities are seen at the lung bases. Mediastinum: The cardiac contours are within normal limits. The aorta demonstrates calcification and tortuosity. Bones and chest wall: No suspicious bony lesions. Age-appropriate bony degenerative changes are seen. Overlying soft tissues appear unremarkable. IMPRESSION: Low lung volumes, with likely atelectasis at the lung bases. Differential diagnosis includes mild infiltrate, however. Postoperative and degenerative changes are seen. Dictated by: Kelton Lane M.D. on 09/16/2019 at 8:41 Approved by: Kelton Lane M.D. on 09/16/2019 at 8:41
[2019-09-16 01:19] VITALS: BP 94/49; PULSE 93; RESP 16; TEMP 36.6; O2SAT 94; BMI 33.6
[2019-09-16 01:41] LABS: Influenza A and B by PCR Rapid Negative (Negative)
--- NOTE | 2019-09-16 01:42 | ED.URI ---
HPI - URI/Sore Throat General Chief Complaint: Upper Respiratory Symptoms Stated Complaint: Lots of coughing/sore throat Time Seen by Provider: 09/16/19 01:05 Source: patient Mode of arrival: Wheelchair Limitations: no limitations History of Present Illness HPI Narrative: 84-year-old male here for evaluation of 2 complaints. He states that for the past several days he has had cough and sore throat and concern for pneumonia. He also states he has not had a bowel movement the past several days. Was seen in the emergency department couple days ago for this. Was discharged with Mag citrate. He has not tried the Mag citrate. He stated that he did try some prior to his prior visit here in the ER. He also has been on MiraLax. Related Data Home Medications Medication Instructions Recorded Confirmed allopurinol 300 mg PO HS #0 06/30/12 07/11/19 metoprolol tartrate 100 mg PO BID #0 01/24/13 07/11/19 warfarin [Coumadin] 10 mg PO SEE INSTRUCTIONS #0 01/24/13 07/11/19 warfarin [Coumadin] 7.5 mg PO SEE INSTRUCTIONS #0 06/07/17 07/11/19 polyethylene glycol 3350 [Miralax] 17 gm PO QDAY #0 07/15/17 gabapentin 600 mg PO BID 07/11/19 07/11/19 Previous Rx's Medication Instructions Recorded cyclobenzaprine 5 mg PO BEDTIME PRN #7 tab 06/09/19 lidocaine 1 patch TOP DAILY #15 each 06/09/19 Allergies Allergy/AdvReac Type Severity Reaction Status Date / Time lisinopril [LISINOPRIL] AdvReac Mild NAUSEA Verified 07/11/19 08:06 Review of Systems Constitutional Constitutional: Denies fever(s) ENT Ears, Nose, Mouth, and Throat: Denies sinus pressure and Reports sore throat Cardiovascular Cardiovascular: Denies chest pain Respiratory Respiratory: Reports chest congestion and Reports cough Gastrointestinal Gastrointestinal: Denies abdominal pain, Reports bloating, Reports constipation and Denies vomiting Musculoskeletal Musculoskeletal: Denies myalgias and Denies arthralgias Integumentary/Breasts Skin/Breast: Denies rash Hematologic/Lymphatic Hematologic/Lymphatic: Denies easy bleeding and Denies easy bruising Patient History Medical History Afib (Acute) Back pain (Acute) Constipation (Chronic) History of subdural hematoma (Acute) Tremor of right hand (Chronic) Social History Smoking Status: Former smoker alcohol intake frequency: 0-2 drinks per day Substance Use Type: does not use Exam Initial Vital Signs Initial Vital Signs: Vital Signs Temperature 98 F 09/16/19 01:19 Pulse Rate 93 H 09/16/19 01:19 Respiratory Rate 16 09/16/19 01:19 Blood Pressure 94/49 L 09/16/19 01:19 Pulse Oximetry 94 09/16/19 01:19 Const General: cooperative and comfortable Orientation: alert, awake and oriented x3 HENMT Head: normal to inspection and normocephalic Resp Effort & Inspection: normal respiratory effort Auscultation: clear to auscultation bilaterally Cardio Rate: regular rate Rhythm: regular rhythm GI Inspection: non-distended Palpation: soft and No guarding Skin Lesions: no lesions Rashes: no rashes Extrem General: capillary refill normal Course Orders Ordered: ED Orders 09/16/19 01:12 XR chest 1V Stat 09/16/19 01:20 Influenza A and B by PCR Rapid Stat Vital Signs Vital signs: Vital Signs - 8 hr 09/16/19 01:19 Temperature 98 F Pulse Rate 93 H Respiratory Rate 16 Blood Pressure 94/49 L Pulse Oximetry 94 MDM - URI/Sore Throat Medical Records Attestation: I reviewed the patient's medical records. Lab Data Attestation: I reviewed the patient's lab results. Labs: Lab Results 09/16/19 Range/Units 01:20 Influenza A & B (PCR) Negative (Negative) Point of Care Testing Rapid Strep A Negative Imaging Data Chest x-ray: Radiologist's impression: By basilar subsegmental atelectasis. Small infiltrate in the lung bases not ruled out [facility] Narrative Medical decision making narrative: Clinically does not have pneumonia. Flu is negative. Strep test is negative. No indication for antibiotics. Patient seems to have been constipated. This is happened since he has been taken off NG tube feeds and on to regular eating. This was done earlier this month. We did discuss the use of enemas an oral laxatives. Exam today is not consistent with bowel obstruction. He has a soft abdomen although it is somewhat distended. Hold on further workup for now. Family was given return precautions and follow-up instructions they expressed understanding and agreement plan Discharge Plan Departure Patient Disposition: Home Clinical Impression: Upper respiratory infection Qualifiers: URI type: unspecified URI Qualified Code(s): J06.9 - Acute upper respiratory infection, unspecified Constipation Qualifiers: Constipation type: unspecified constipation type Qualified Code(s): K59.00 - Constipation, unspecified Instructions: DI for Constipation Activity Restrictions/Additional Instructions: You can continue to do Mag citrate and laxatives for the constipation. Contact your primary care provider for follow-up. Continue all of your medications as instructed. Prescriptions: No Action allopurinol 100 MG tablet 300 mg PO HS Qty: 0 RF: 0 metoprolol tartrate 100 MG tablet 100 mg PO BID Qty: 0 RF: 0 warfarin [Coumadin] 5 MG tablet 10 mg PO SEE INSTRUCTIONS Qty: 0 RF: 0 warfarin [Coumadin] 5 MG tablet 7.5 mg PO SEE INSTRUCTIONS Qty: 0 RF: 0 polyethylene glycol 3350 [Miralax] 119 GM powder 17 gm PO QDAY Qty: 0 RF: 0 gabapentin 300 mg Capsule 600 mg PO BID RF: 0 lidocaine 5 % adhesive patch,medicated 1 patch TOP DAILY Qty: 15 RF: 0 cyclobenzaprine 5 mg tablet 5 mg PO BEDTIME PRN (Reason: muscle spasm) Qty: 7 RF: 0 Referrals: Martin Puente MD [Primary Care Provider] -
[2019-09-16 02:10] VITALS: BP 112/68; PULSE 80; RESP 18; O2SAT 96
[2019-09-16 02:55] VITALS: BP 118/70; PULSE 82; RESP 18; TEMP 36.6; O2SAT 98
== END 2019-09-16 02:50 | disposition home or self-care (01) ==
PROVIDERS: Emergency Provider Emergency Medicine; PCP Family Medicine
DX: J06.9 Acute upper respiratory infection, unspecified (principal); K59.00 Constipation, unspecified
CPT/HCPCS: 71045; 87502; 87880; 99282; 99283

== ENCOUNTER 2019-10-02 08:35 | Inpatient (IN) | payer OTHER, SELFPAY ==
[2019-10-02] VITALS (20 sets, daily range): BP systolic 92–144; BP diastolic 47–83; PULSE 82–109; RESP 22–38; TEMP 30.8–36.9; O2SAT 93–100; BMI 33.2; BMI 32.7
--- NOTE | 2019-10-02 08:45 | DI.RAD.S_ITS ---
PROCEDURE: XR CHEST 1V INDICATIONS: sob TECHNIQUE: One view of the chest was acquired. COMPARISON: [facility], , CHEST 2 VIEW, 08/03/2013, 14:35. [facility], , CHEST 1 VIEW, 05/20/2017, 10:45. [facility], , XR CHEST 1V, 09/16/2019, 1:24. FINDINGS: Surgical changes and devices: Lower cervical spine and upper thoracic spine fusion. Lungs and pleura: Mild right hemidiaphragm elevation. Increased vascularity may be secondary to low lung volumes. No pleural effusions or pneumothorax. Mediastinum: Mediastinal contours appear normal. Heart size is normal. Bones and chest wall: No suspicious bony lesions. Overlying soft tissues appear unremarkable. IMPRESSION: Increased vascularity may be secondary to low lung volumes but mild interstitial infiltrates may be present. Dictated by: Roman Degroot M.D. on 10/02/2019 at 9:16 Approved by: Roman Degroot M.D. on 10/02/2019 at 9:21
--- NOTE | 2019-10-02 08:53 | PC.NURSE ---
Pt arrived via EMS requiring 6L O2 for resp distress. h/o Neck surgery in Sept and in [facility]. Had swallowing issues s/p surgery and required a NG feeding tube. Per who is a good historian, pt had feeding tube in longer than expected and it was changed out multiple times for larger sizes. It was removed recently and pt with difficulty swallowing and possibly aspirated. Lungs with diffuse rhonchi intermittently cleared with coughing. Currently on 2L and 94%. On cardiac monitoring. 18G LAC by EMS and labs drawn and sent per order. EKG obtained and RT in for ABG. awaiting CXR.
[2019-10-02 08:54] LABS: Add Manual Diff / Slide Review NO; Basophils Absolute Auto 100 /uL (0-100); Basophils Percent Auto 0.4 % (0-2); Eosinophils Absolute Auto 0 /uL (0-450); Eosinophils Percent Auto 0.3 % (2-4); Hematocrit 38.2 % (41-53); Hemoglobin 12.5 g/dL (13.5-17.5); Lymphocytes Absolute Auto 1300 /uL (1100-4500); Lymphocytes Percent Auto 8.4 % (25-40); Mean Corpuscular HGB Conc 32.8 % (30-36); Mean Corpuscular Hemoglobin 30.9 PG (26-34); Mean Corpuscular Volume 94.2 fL (80-100); Monocytes Absolute Auto 1000 /uL (0-900); Monocytes Percent Auto 6.4 % (3-14); Neutrophils Absolute Auto 12900 /uL (1500-7000); Neutrophils Percent Auto 84.5 % (50-75); Platelet Count 176 X10^3/uL (150-400); Red Blood Cell Count 4.05 X10^6/uL (4.5-5.9); Red Cell Distribution Width 14.7 % (11.6-14.8); White Blood Cell Count 15.3 X10^3/uL (4.5-11.0)
[2019-10-02 08:59] LABS: PTT Partial Thromboplastin Tim 49 SECONDS (26.4-36.2)
[2019-10-02 09:03] LABS: Alanine Aminotransferase 14 IU/L (<50); Albumin 4.2 g/dL (3.5-5.0); Albumin Globulin Ratio 1.2 (1.0-2.8); Alkaline Phosphatase 101 U/L (38-126); Aspartate Aminotransferase 26 IU/L (17-59); Blood Urea Nitrogen 27 mg/dL (9-20); Calcium 9.4 mg/dL (8.4-10.2); Carbon Dioxide 36 mmol/L (22-32); Chloride 96 mmol/L (98-107); Creatine Kinase 130 U/L (55-170); Estimated Glomerular Filt Rate > 60.0 mL/min (>60); Globulin 3.4 g/dL (1.7-4.1); Glucose 146 mg/dL (80-110); HEMOLYSIS < 15 (0-50); Magnesium 1.9 mg/dL (1.6-2.3); Potassium 4.4 mmol/L (3.4-5.1); Sodium 141 mmol/L (137-145); Total Protein 7.6 g/dL (6.3-8.2)
[2019-10-02 09:04] LABS: Lactate (Lactic Acid) 0.8 mmol/L (0.7-2.1); Prothrombin Time 67.7 SECONDS (10.1-12.7)
[2019-10-02 09:05] LABS: INR 5.7 (0.9-1.3)
[2019-10-02 09:10] LABS: Fractionated Inspired Oxygen 0.28; HCO3 ABG 37 mmol/L (22-26); Oxygen Saturation ABG 93 % (95-100); PCO2 ABG 87.5 mmHg (35-45); PO2 ABG 86 mmHg (80-100); TCO2 ABG 39 mmol/L (21-31)
[2019-10-02 09:11] LABS: pH ABG 7.23 (7.35-7.45)
[2019-10-02 09:15] LABS: Troponin I 0.014 ng/mL (0.01-0.034)
[2019-10-02 09:16] LABS: B Type Natriuretic Peptide 560 (<100)
[2019-10-02 09:18] LABS: CKMB % Relative Index 2.5 % (1.5-5.0); Creatine Kinase MB 3.19 ng/mL (<2.37)
[2019-10-02 09:22] LABS: Procalcitonin 0.12 ng/mL (<0.5)
--- NOTE | 2019-10-02 09:22 | ED.SOB ---
HPI - SOB/Dyspnea General Chief Complaint: Shortness of Breath/Dyspnea Stated Complaint: SOB, post feeding tube removal Time Seen by Provider: 10/02/19 08:41 Source: patient, family and EMS Mode of arrival: EMS History of Present Illness HPI Narrative: Patient is an 84-year-old male history of atrial fibrillation and recent cervical fusion currently in [facility] presenting with increased difficulty breathing. states that he has had some difficulty breathing for a couple of months but over the last 1 week it has gotten significantly worse. No productive cough he feels short of breath at rest. He appears to be in distress. No chest pain or heart palpitations. He had a supratherapeutic INR of 7.8 4 days ago was told to hold his Coumadin. He has no confusion. He also had an NG-tube placed postoperatively it was left in for 3 weeks, states that was not supposed to be left in that long. MD Complaint: shortness of breath Onset (ago): week(s) Severity: moderate Relieving factors: oxygen Treatment prior to arrival: oxygen Related Data Home Medications Medication Instructions Recorded Confirmed polyethylene glycol 3350 [Miralax] 17 gm PO QDAY #0 07/15/17 gabapentin 300 mg PO BID 07/11/19 07/11/19 allopurinol 300 mg PO DAILY 10/02/19 10/02/19 atorvastatin 80 mg PO DAILY 10/02/19 10/02/19 clotrimazole 10 mg MUCOUS MEMBRANE 5XD 10/02/19 10/02/19 metoprolol succinate 100 mg PO BID 10/02/19 10/02/19 nystatin 0 ml PO DIRECTED 10/02/19 10/02/19 tamsulosin 0.8 mg PO DAILY 10/02/19 10/02/19 trospium 60 mg PO QAM 10/02/19 10/02/19 warfarin 10/02/19 Previous Rx's Medication Instructions Recorded cyclobenzaprine 5 mg PO BEDTIME PRN #7 tab 06/09/19 lidocaine 1 patch TOP DAILY #15 each 06/09/19 Allergies Allergy/AdvReac Type Severity Reaction Status Date / Time lisinopril [LISINOPRIL] AdvReac Mild NAUSEA Verified 07/11/19 08:06 Review of Systems Review of Systems ROS Unobtainable: All systems reviewed & are unremarkable except as noted in HPI and below Constitutional Constitutional: Denies chills, Denies fever(s), Denies lethargy and Denies weakness Neurologic Neurologic: Denies weakness Patient History Medical History Afib (Acute) Back pain (Acute) Constipation (Chronic) History of subdural hematoma (Acute) Tremor of right hand (Chronic) Social History Smoking Status: Former smoker Smoking Status: Former smoker alcohol intake frequency: 0-2 drinks per day Substance Use Type: does not use Exam Initial Vital Signs Initial Vital Signs: Vital Signs Pulse Rate 109 H 10/02/19 08:30 Respiratory Rate 31 H 10/02/19 08:30 Blood Pressure 123/76 10/02/19 08:30 Pulse Oximetry 95 10/02/19 08:30 Gen.: Alert male in respiratory distress HEENT: [place] J in place, head atraumatic, face symmetric,EOMI Lungs: Tachypneic, clear breath sounds bilaterally Cardiac: Irregular no murmur Abdomen: Soft although slightly distended nontender no guarding no rebound Extremities: Peripheral pulses intact no gross bony deformity no pedal edema Neurologic: 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 strength equal bilaterally Course Orders Ordered: ED Orders 10/02/19 08:40 B Type Natriuretic Peptide Stat Complete Blood Count AUTO DIFF Stat Comprehensive Metabolic Panel Stat Lactate (Lactic Acid) Stat Magnesium Stat Partial Thromboplastin Time Stat Procalcitonin Stat Prothrombin Time INR Stat Troponin & CK Cardiac Panel Stat 10/02/19 08:44 Consult to Respiratory Therapy Evaluate & Treat EKG-12 Lead Stat 10/02/19 08:45 XR chest 1V Stat 10/02/19 08:52 Arterial Blood Gas Stat 10/02/19 09:08 Blood Culture Stat Discontinued Medications Furosemide (Lasix) 20 mg IV NOW ONE Stop: 10/02/19 09:35 Last Admin: 10/02/19 09:51 Dose: 20 mg Documented by: CHANDLER Ceftriaxone Sodium/Dextrose (Rocephin) 2 gm in 50 mls @ 100 mls/hr IV NOW ONE Stop: 10/02/19 10:07 Last Infusion: 10/02/19 10:39 Dose: 0 mls/hr Documented by: Admin: 10/02/19 09:51 Dose: 100 mls/hr Documented by: CHANDLER Metronidazole (Flagyl) 500 mg in 100 mls @ 100 mls/hr IV NOW ONE Stop: 10/02/19 10:35 Last Infusion: 10/02/19 10:56 Dose: 0 mls/hr Documented by: Admin: 10/02/19 09:51 Dose: 100 mls/hr Documented by: CHANDLER Vital Signs Vital signs: Vital Signs - 8 hr 10/02/19 08:30 10/02/19 08:48 10/02/19 09:00 Temperature 97.6 F Pulse Rate 109 H 102 H 103 H Respiratory Rate 31 H 23 29 H Blood Pressure 123/76 Blood Pressure [Right Arm] 123/76 134/68 Pulse Oximetry 95 93 94 10/02/19 09:30 10/02/19 09:40 10/02/19 10:00 Temperature Pulse Rate 100 H 91 H Respiratory Rate 26 H 31 H Blood Pressure 104/54 L Blood Pressure [Right Arm] 96/78 105/61 Pulse Oximetry 98 95 10/02/19 10:12 Temperature Pulse Rate 93 H Respiratory Rate 27 H Blood Pressure Blood Pressure [Right Arm] 96/78 Pulse Oximetry 100 MDM - SOB/Dyspnea Lab Data Attestation: I reviewed the patient's lab results. Result diagrams: 10/02/19 08:40 10/02/19 08:40 Labs: Lab Results 10/02/19 10/02/19 10/02/19 Range/Units 08:40 08:40 08:40 WBC 15.3 H (4.5-11.0) X10^3/uL RBC 4.05 L (4.5-5.9) X10^6/uL Hgb 12.5 L (13.5-17.5) g/dL Hct 38.2 L (41-53) % MCV 94.2 (80-100) fL MCH 30.9 (26-34) PG MCHC 32.8 (30-36) % RDW 14.7 (11.6-14.8) % Plt Count 176 (150-400) X10^3/uL Neut % (Auto) 84.5 H (50-75) % Lymph % (Auto) 8.4 L (25-40) % [facility] % (Auto) 6.4 (3-14) % Eos % (Auto) 0.3 L (2-4) % Baso % (Auto) 0.4 (0-2) % Neut # (Auto) 34461 H (8668-8135) /uL Lymph # (Auto) 1300 (9018-5450) /uL [facility] [place] # (Auto) 1000 H (0-900) /uL Eos # (Auto) 0 (0-450) /uL Baso # (Auto) 100 (0-100) /uL PT 67.7 H (10.1-12.7) SECONDS INR 5.7 H* (0.9-1.3) APTT 49 H D (26.4-36.2) SECONDS ABG pH (7.35-7.45) ABG pCO2 (35-45) mmHg ABG pO2 (80-100) mmHg ABG HCO3 (22-26) mmol/L ABG Total CO2 (21-31) mmol/L ABG O2 Saturation (95-100) % ABG Base Excess (-2-2) mmol/L FiO2 Sodium 141 (137-145) mmol/L Potassium 4.4 (3.4-5.1) mmol/L Chloride 96 L (98-107) mmol/L Carbon Dioxide 36 H (22-32) mmol/L BUN 27 H (9-20) mg/dL Creatinine 0.90 (0.66-1.25) mg/dL Estimated GFR > 60.0 (>60) mL/min BUN/Creatinine Ratio 30.0 H (6-22) Glucose 146 H (80-110) mg/dL Lactate (0.7-2.1) mmol/L Calcium 9.4 (8.4-10.2) mg/dL Magnesium 1.9 (1.6-2.3) mg/dL Total Bilirubin 1.0 (0.2-1.3) mg/dL AST 26 (17-59) IU/L ALT 14 (<50) IU/L Alkaline Phosphatase 101 (38-126) U/L Total Creatine Kinase 130 (55-170) U/L CK-MB (CK-2) 3.19 H (<2.37) ng/mL CK-MB (CK-2) Rel Index 2.5 (1.5-5.0) % Troponin I 0.014 (0.01-0.034) ng/mL B-Natriuretic Peptide 560 H (<100) Total Protein 7.6 (6.3-8.2) g/dL Albumin 4.2 (3.5-5.0) g/dL Globulin 3.4 (1.7-4.1) g/dL Albumin/Globulin Ratio 1.2 (1.0-2.8) Procalcitonin (<0.5) ng/mL 10/02/19 10/02/19 10/02/19 Range/Units 08:40 08:40 08:52 WBC (4.5-11.0) X10^3/uL RBC (4.5-5.9) X10^6/uL Hgb (13.5-17.5) g/dL Hct (41-53) % MCV (80-100) fL MCH (26-34) PG MCHC (30-36) % RDW (11.6-14.8) % Plt Count (150-400) X10^3/uL Neut % (Auto) (50-75) % Lymph % (Auto) (25-40) % [facility] % (Auto) (3-14) % Eos % (Auto) (2-4) % Baso % (Auto) (0-2) % Neut # (Auto) (2324-1023) /uL Lymph # (Auto) (2590-2430) /uL [facility] [place] # (Auto) (0-900) /uL Eos # (Auto) (0-450) /uL Baso # (Auto) (0-100) /uL PT (10.1-12.7) SECONDS INR (0.9-1.3) APTT (26.4-36.2) SECONDS ABG pH 7.23 L* (7.35-7.45) ABG pCO2 87.5 H* (35-45) mmHg ABG pO2 86 (80-100) mmHg ABG HCO3 37 H (22-26) mmol/L ABG Total CO2 39 H (21-31) mmol/L ABG O2 Saturation 93 L (95-100) % ABG Base Excess 9.0 H (-2-2) mmol/L FiO2 0.28 Sodium (137-145) mmol/L Potassium (3.4-5.1) mmol/L Chloride (98-107) mmol/L Carbon Dioxide (22-32) mmol/L BUN (9-20) mg/dL Creatinine (0.66-1.25) mg/dL Estimated GFR (>60) mL/min BUN/Creatinine Ratio (6-22) Glucose (80-110) mg/dL Lactate 0.8 (0.7-2.1) mmol/L Calcium (8.4-10.2) mg/dL Magnesium (1.6-2.3) mg/dL Total Bilirubin (0.2-1.3) mg/dL AST (17-59) IU/L ALT (<50) IU/L Alkaline Phosphatase (38-126) U/L Total Creatine Kinase (55-170) U/L CK-MB (CK-2) (<2.37) ng/mL CK-MB (CK-2) Rel Index (1.5-5.0) % Troponin I (0.01-0.034) ng/mL B-Natriuretic Peptide (<100) Total Protein (6.3-8.2) g/dL Albumin (3.5-5.0) g/dL Globulin (1.7-4.1) g/dL Albumin/Globulin Ratio (1.0-2.8) Procalcitonin 0.12 (<0.5) ng/mL 10/02/19 Range/Units 10:28 WBC (4.5-11.0) X10^3/uL RBC (4.5-5.9) X10^6/uL Hgb (13.5-17.5) g/dL Hct (41-53) % MCV (80-100) fL MCH (26-34) PG MCHC (30-36) % RDW (11.6-14.8) % Plt Count (150-400) X10^3/uL Neut % (Auto) (50-75) % Lymph % (Auto) (25-40) % [facility] [place] % (Auto) (3-14) % Eos % (Auto) (2-4) % Baso % (Auto) (0-2) % Neut # (Auto) (9881-1363) /uL Lymph # (Auto) (3444-3125) /uL [facility] [place] [facility] # (Auto) (0-900) /uL Eos # (Auto) (0-450) /uL Baso # (Auto) (0-100) /uL PT (10.1-12.7) SECONDS INR (0.9-1.3) APTT (26.4-36.2) SECONDS ABG pH 7.27 L* (7.35-7.45) ABG pCO2 77.1 H* (35-45) mmHg ABG pO2 134 H (80-100) mmHg ABG HCO3 35 H (22-26) mmol/L ABG Total CO2 38 H (21-31) mmol/L ABG O2 Saturation 98 (95-100) % ABG Base Excess 8.0 H (-2-2) mmol/L FiO2 0.40 Sodium (137-145) mmol/L Potassium (3.4-5.1) mmol/L Chloride (98-107) mmol/L Carbon Dioxide (22-32) mmol/L BUN (9-20) mg/dL Creatinine (0.66-1.25) mg/dL Estimated GFR (>60) mL/min BUN/Creatinine Ratio (6-22) Glucose (80-110) mg/dL Lactate (0.7-2.1) mmol/L Calcium (8.4-10.2) mg/dL Magnesium (1.6-2.3) mg/dL Total Bilirubin (0.2-1.3) mg/dL AST (17-59) IU/L ALT (<50) IU/L Alkaline Phosphatase (38-126) U/L Total Creatine Kinase (55-170) U/L CK-MB (CK-2) (<2.37) ng/mL CK-MB (CK-2) Rel Index (1.5-5.0) % Troponin I (0.01-0.034) ng/mL B-Natriuretic Peptide (<100) Total Protein (6.3-8.2) g/dL Albumin (3.5-5.0) g/dL Globulin (1.7-4.1) g/dL Albumin/Globulin Ratio (1.0-2.8) Procalcitonin (<0.5) ng/mL Imaging Data Chest x-ray: Radiologist's impression: PROCEDURE: XR CHEST 1V INDICATIONS: sob TECHNIQUE: One view of the chest was acquired. COMPARISON: [facility], , CHEST 2 VIEW, 08/03/2013, 14:35. [facility], CR, CHEST 1 VIEW, 05/20/2017, 10:45. [facility], CR, XR CHEST 1V, 09/16/2019, 1:24. FINDINGS: Surgical changes and devices: Lower cervical spine and upper thoracic spine fusion. Lungs and pleura: Mild right hemidiaphragm elevation. Increased vascularity may be secondary to low lung volumes. No pleural effusions or pneumothorax. Mediastinum: Mediastinal contours appear normal. Heart size is normal. Bones and chest wall: No suspicious bony lesions. Overlying soft tissues appear unremarkable. IMPRESSION: Increased vascularity may be secondary to low lung volumes but mild interstitial infiltrates may be present. Dictated by: Roman Degroot M.D. on 10/02/2019 at 9:16 MDM Narrative Medical decision making narrative: Patient does appear to be in respiratory distress ABG shows respiratory acidosis with CO2 retaining. No prior history of smoking or COPD. He does have an elevated BNP of 500 all poor inspiration on x-ray questionable vascular edema versus pneumonia. He has got leukocytosis mildly elevated procalcitonin normal lactic acid and is afebrile. He is likely at risk for aspiration pneumonia possible new onset CHF. states that he is actually scheduled for an echocardiogram by his PCP later this week. Patient placed on BiPAP for his CO2 retaining. He seems to be tolerating it well and also seems to help. He is covered for Rocephin and Flagyl for possible aspiration pneumonia and given a dose of Lasix as well. On his repeat ABG does show improvement. I've discussed case with Dr. Martin who is happy to accept patient to the ICU for further management. Critical Care Time Critical Care Time Critical Care Time: Yes Total Critical Care Time: 30 Attestation: The high probability of a clinically significant, sudden or life threatening deterioration of the [cardiovascular/respiratory] system(s) required my full and direct attention, intervention and personal management. The aggregate critical care time was 30 minutes. This time is in addition to time spent performing reported procedures but includes the following: [x] Data Review and interpretation [x] Patient assessment and monitoring of vital signs [x] Documentation [x] Medication orders and management Discharge Plan Departure Patient Disposition: Admitted As Inpatient Clinical Impression: CHF (congestive heart failure) Qualifiers: Heart failure type: unspecified Heart failure chronicity: unspecified Qualified Code(s): I50.9 - Heart failure, unspecified Respiratory failure Qualifiers: Chronicity: acute Respiratory failure complication: hypercapnia Qualified Code(s): J96.02 - Acute respiratory failure with hypercapnia Aspiration pneumonia Qualifiers: Aspiration pneumonia type: unspecified Laterality: unspecified laterality Lung location: unspecified part of lung Qualified Code(s): J69.0 - Pneumonitis due to inhalation of food and vomit Discharge Date/Time: 10/02/19 11:23 Admit Date/Time: 10/02/19 10:43 Admit Provider: Jeancarlos Martin
[2019-10-02] MEDS: CEFTRIAXONE 2 GM/50 ML FROZ.PIGGY IV (09:51)
[2019-10-02] MEDS: FUROSEMIDE 20 MG/2 ML VIAL IV (09:51)
[2019-10-02] MEDS: metroNIDAZOLE 500 MG/100 ML PIGGYBACK 100 MG IV (09:51)
[2019-10-02 11:17] LABS: HCO3 ABG 35 mmol/L (22-26); PCO2 ABG 77.1 mmHg (35-45); PO2 ABG 134 mmHg (80-100); pH ABG 7.27 (7.35-7.45)
[2019-10-02 11:18] LABS: Oxygen Saturation ABG 98 % (95-100); TCO2 ABG 38 mmol/L (21-31)
--- NOTE | 2019-10-02 12:55 | DI.ECHO.S_ITS ---
[place] +---------+ [facility] +---------+ : : [address] : : : : [id number] : : : : Phone: [phone] Echocardiogram Report + + :Name: PAULETTE CHEW Study Date: 10/03/2019 Height: 72 in : :[facility] Weight: 245 lb : : Gender: Male BSA: 2.3 m2 : :: 1935 Age: 84 yrs BP: 116/66 mmHg: :Reason For Study: Dyspnea : : Performed By: [facility] Staff : :Referring: BUCKY DUNN : + + Interpretation Summary The study quality was technically limited. The study quality was technically difficult. The left ventricle is normal in size. The ejection fraction is estimated to be 30-35%. There is moderate to severe global hypokinesis of the left ventricle. Left ventricular function has significantly worsened compared to the previous exam. The right ventricle is moderately dilated. Right ventricular systolic function is mildly reduced. There is moderate tricuspid regurgitation. Compared to the prior echo exam, there has been no change in TR severity. Right ventricular systolic pressure is estimated to be 39 mmHg plus the clinically estimated CVP which cannot be estimated on this exam. The ascending aorta is mildly enlarged. Procedure: A two-dimensional transthoracic echocardiogram with color flow and Doppler was performed. The study quality was technically limited. A contrast injection of Definity was performed to improve assessment of LV function. Prior echo performed on 12/16/14. The study quality was technically difficult. The patient was in a tachycardic rhythm during the exam. The heart rate ranged between 123 bpm during the study. Left Ventricle: The left ventricle is normal in size. There is mild concentric left ventricular hypertrophy. There is no thrombus. The ejection fraction is estimated to be 30-35%. Left ventricular function has significantly worsened compared to the previous exam. There is moderate to severe global hypokinesis of the left ventricle. Diastolic function could not be accurately assessed due to tachycardia. Right Ventricle: The right ventricle is moderately dilated. Right ventricular systolic function is mildly reduced. Atria: The left atrium is moderately dilated. Both atria have remained unchanged in size since the prior echo exam. The right atrium is moderately dilated. The interatrial septum is intact with no evidence for an atrial septal defect. Mitral Valve: The mitral valve is normal. There is trace mitral regurgitation. Aortic Valve: The aortic valve is not well visualized. There is no hemodynamically significant valvular aortic stenosis. No aortic regurgitation is present. Tricuspid Valve: The tricuspid valve is not well visualized. There is moderate tricuspid regurgitation. Compared to the prior echo exam, there has been no change in TR severity. Right ventricular systolic pressure is estimated to be 39 mmHg plus the clinically estimated CVP which cannot be estimated on this exam. Pulmonic Valve: The pulmonic valve is not well visualized. Great Vessels: The aortic root is borderline dilated. The ascending aorta is mildly enlarged. There has been no significant change since the previous study. The pulmonary artery is normal size. The inferior vena cava was not visualized. Pericardium/ Pleura There is a trivial pericardial effusion noted. There is no pleural effusion. MMode/2D Measurements & Calculations LVIDd: 5.2 cm Ao root diam: 3.7 cm LVIDs: 3.3 cm Aortic Jxn: 3.6 cm FS: 37.3 % asc Aorta Diam: 4.0 cm IVSd: 1.3 cm LVPWd: 1.4 cm LV rojas. diameter/BSA (cm/m^2): 2.2 LV sys. diameter/BSA (cm/m^2): 1.4 LA A4 area: 30.2 cm2 RA long axis: 5.3 cm LA length (vol): 6.6 cm RA area: 21.5 cm2 RA vol: 73.4 ml RA : 31.6 ml/m2 IVC diam: 4.9 cm Doppler Measurements & Calculations Med Peak E' Kasi: 7.2 cm/sec TR max kasi: 306.8 cm/sec TR max P.8 mmHg Reading Physician:12:02 PM
[2019-10-02 13:34] LABS: Bacteria Urine None Seen; RBC Urine None Seen (0-5/HPF); WBC Urine None Seen (0-5/HPF)
[2019-10-02 13:36] LABS: Appearance Urine UA CLEAR; Bilirubin Urine UA NEGATIVE (NEGATIVE); Color Urine UA YELLOW; Glucose Urine UA NEGATIVE (Negative); Ketones Urine UA NEGATIVE (NEGATIVE); Leukocyte Esterase Urine UA NEGATIVE (NEGATIVE); Nitrite Urine UA NEGATIVE (Negative); Occult Blood Urine UA TRACE-LYSED (Negative); Protein Urine UA 1+ (Negative); Specific Gravity Urine UA 1.015 (1.000-1.035); Urobilinogen Urine UA 0.2 E.U./dL (0.2)
[2019-10-02] MEDS: PIPERACILLIN-TAZO 3.375 GM/50 ML FROZ.PIGGY IV ×2 (13:44→18:30)
[2019-10-02] MEDS: FUROSEMIDE 40 MG/4 ML VIAL IV (13:44)
[2019-10-02 13:51] LABS: Culture Indicated Urine Cult Not Indicated; Hyaline Casts Urine 1-5/LPF
--- NOTE | 2019-10-02 14:06 | P.HP_ITS ---
History of Present Illness History of Present Illness Date Patient Seen: 10/02/19 Time Patient Seen: 13:00 Chief complaint: SOB, post feeding tube removal Narrative: Sreekanth Erickson is an 84-year-old male with past medical history of hypertension, hyperlipidemia, AFib on Coumadin, gout, recent subdural hemorrhage in June of 2019 for which she was seen here and then transferred to [place]. His subdural hematoma has been stable however further workup during that admission in [place] showed cervical stenosis and he underwent a cervical fusion also in June of 2019. Since then he has had a complex postoperative course. He presented today with difficulty breathing. This is been going on for the past few weeks according to the patient and his . The shortness of breath has been present over the past month but over the past week at his been worsening. The asked him to come to the emergency room a few days ago but the patient was reluctant to do so. He ultimately agreed this morning when he told her he could not breathe at all. The patient complains of pain all over and shortness of breath, he denies chest pain or palpitations. The reports that he has a CPAP at home that he does not use. His postoperative course included a stay at rehab and a prolonged nasogastric tube for swallowing difficulties He has developed thrush as well, for which he has been on antifungals recently. According to the , he has had different providers say that he can swallow and others that say that he can't. In the emergency room the patient was normotensive, afebrile, but tachypneic. ABG she has showed a pCO2 of 87 and the patient was put on BiPAP. He improved slightly to 77, but was transferred to the ICU for hypercarbic respiratory failure and continued BiPAP therapy. Other labs were remarkable for an INR 5.7, BNP of 560, and procalcitonin of 0.12, and troponin of 0.014. In the ICU his belly was moderately distended, bladder scan was done which showed greater than 1 L of urine, and a Velasquez catheter was placed with greater than 1 L output. UA was negative for infection. Chest x-ray showed a slightly increased vascularity bilaterally, but no focal infiltrates. EKG shows AFib with a rate of 103, his precordial leads appear unchanged however there is a morphology changes QRS complex in the inferior leads of unclear significance. Patient History Medical History (Updated 10/02/19 @ 13:35 by Ayad Buenrostro RN) Abdominal bruit (Acute) Afib (Acute) Back pain (Acute) Bladder cancer (Acute) Bradycardia (Acute) CAD (coronary artery disease) (Acute) Cardiomyopathy (Acute) Constipation (Chronic) Degenerative joint disease (Acute) Epistaxis (Acute) Gout (Acute) History of subdural hematoma (Acute) Hyperlipidemia (Acute) Hyperuricemia (Acute) Inguinal hernia (Acute) Myositis (Acute) Obstructive sleep apnea (Acute) Polyneuropathy (Acute) Thoracic spondylosis without myelopathy (Acute) Tremor of right hand (Chronic) Umbilical hernia (Acute) UTI (urinary tract infection) (Acute) Varicose veins of both lower extremities (Acute) Venous stasis ulcer (Acute) Family & Social History Safety & Behavioral: Feels Safe in Current Yes Environment Been Physically Hurt or No Threatened By a Person Tobacco & Substance use: Smoking Status Former smoker alcohol intake frequency 0-2 drinks per day Substance Use Type does not use Meds Home Medications and Allergies Home Medications Medication Instructions Recorded Confirmed Type polyethylene glycol 3350 [Miralax] 17 gm PO DAILY #0 07/15/17 10/02/19 History lidocaine 1 patch TOP DAILY #15 each 06/09/19 10/02/19 Rx gabapentin 300 mg PO BID 07/11/19 10/02/19 History L.acidoph-Janis-Onealbif-S.therm 1 tab PO BID 10/02/19 10/02/19 History [Bacid] acetaminophen 500 mg PO TID PRN 10/02/19 10/02/19 History allopurinol 300 mg PO DAILY 10/02/19 10/02/19 History atorvastatin 80 mg PO QPM 10/02/19 10/02/19 History cholecalciferol (vitamin D3) 2,000 unit PO DAILY 10/02/19 10/02/19 History [Vitamin D3] clotrimazole 10 mg MUCOUS MEMBRANE 5XD 10/02/19 10/02/19 History folic acid 1 mg PO DAILY 10/02/19 10/02/19 History ipratropium-albuterol 3 ml INHALATION Q4H PRN 10/02/19 10/02/19 History magnesium citrate 300 ml PO DAILY PRN 10/02/19 10/02/19 History melatonin 6 mg PO BEDTIME 10/02/19 10/02/19 History metoprolol succinate 100 mg PO BID 10/02/19 10/02/19 History nystatin 0 ml PO DIRECTED 10/02/19 10/02/19 History oxymetazoline [Afrin 2 spray INTRANASAL DAILY PRN 10/02/19 10/02/19 History (oxymetazoline)] posaconazole [Noxafil] 400 mg PO DAILY 10/02/19 10/02/19 History prednisone 20 mg PO DAILY 10/02/19 10/02/19 History sodium phosphates [Fleet Enema] 118 ml ND PRN PRN 10/02/19 10/02/19 History tamsulosin 0.8 mg PO DAILY 10/02/19 10/02/19 History trospium 60 mg PO QAM 10/02/19 10/02/19 History warfarin 7.5 mg PO SUMOTUTHFRSA 10/02/19 10/02/19 History warfarin 10 mg PO WE 10/02/19 10/02/19 History Allergies Allergy/AdvReac Type Severity Reaction Status Date / Time lisinopril [LISINOPRIL] AdvReac Mild NAUSEA Verified 07/11/19 08:06 Review of Systems Review of Systems Narrative: All other systems reviewed with the patient and are negative unless otherwise stated. Exam Vital Signs (past 8 hours): - 10/02/19 08:30 10/02/19 08:48 10/02/19 09:00 Temperature 97.6 F Pulse Rate 109 H 102 H 103 H Respiratory Rate 31 H 23 29 H Blood Pressure 123/76 Blood Pressure [Right Arm] 123/76 134/68 Pulse Oximetry 95 93 94 10/02/19 09:30 10/02/19 09:40 10/02/19 10:00 Temperature Pulse Rate 100 H 91 H Respiratory Rate 26 H 31 H Blood Pressure 104/54 L Blood Pressure [Right Arm] 96/78 105/61 Pulse Oximetry 98 95 10/02/19 10:12 10/02/19 11:09 10/02/19 11:44 Temperature 98.5 F Pulse Rate 93 H 87 90 Respiratory Rate 27 H 26 H 33 H Blood Pressure 116/52 L 144/52 H Blood Pressure [Right Arm] 96/78 Pulse Oximetry 100 98 96 10/02/19 12:22 Temperature Pulse Rate 82 Respiratory Rate 25 H Blood Pressure 117/83 Blood Pressure [Right Arm] Pulse Oximetry 94 Fraction of Inspired Oxygen 30 Oxygen Delivery Method BiPAP Oxygen Flow Rate 2 Narrative Exam Narrative: GENERAL APPEARANCE: Elderly male, lethargic, in C-collar. On BiPAP mask. SKIN: Inspection of the skin reveals scattered small ecchymoses an actinic keratosis. HEENT: Normocephalic, atraumatic. Pupils equally round and reactive. Oral thrush present. NECK: Supple and symmetric. Did C-collar is noted above. There was no thyroid enlargement, and no tenderness, or masses were felt. CHEST: Normal AP diameter and normal contour without any kyphoscoliosis. LUNGS: Decreased air movement, bibasilar crackles with diminished breath sounds. No wheezing appreciated. CARDIOVASCULAR: Irregularly irregular rhythm with normal rate, no murmurs rubs or gallops appreciated. ABDOMEN: Soft, mildly distended, no guarding. MUSCULOSKELETAL: There was no tenderness or effusions noted. Muscle strength was unable to be assessed but tone is normal. EXTREMITIES: No cyanosis, clubbing. There is trace peripheral edema. NEUROLOGIC: Alert, follows commands. Moving all extremities equally. Exam limited by patient's profound lethargy. Objective Labs Result Diagrams: 10/02/19 08:40 10/02/19 08:40 Labs: Laboratory Results - last 24 hr 10/02/19 10/02/19 10/02/19 08:40 08:40 08:40 WBC 15.3 H RBC 4.05 L Hgb 12.5 L Hct 38.2 L MCV 94.2 MCH 30.9 MCHC 32.8 RDW 14.7 Plt Count 176 Neut % (Auto) 84.5 H Lymph % (Auto) 8.4 L Mcintosh % (Auto) 6.4 Eos % (Auto) 0.3 L Baso % (Auto) 0.4 Neut # (Auto) 87943 H Lymph # (Auto) 1300 Mcintosh # (Auto) 1000 H Eos # (Auto) 0 Baso # (Auto) 100 PT 67.7 H INR 5.7 H* APTT 49 H D ABG pH ABG pCO2 ABG pO2 ABG HCO3 ABG Total CO2 ABG O2 Saturation ABG Base Excess FiO2 Sodium 141 Potassium 4.4 Chloride 96 L Carbon Dioxide 36 H BUN 27 H Creatinine 0.90 Estimated GFR > 60.0 BUN/Creatinine Ratio 30.0 H Glucose 146 H Lactate Calcium 9.4 Magnesium 1.9 Total Bilirubin 1.0 AST 26 ALT 14 Alkaline Phosphatase 101 Total Creatine Kinase 130 CK-MB (CK-2) 3.19 H CK-MB (CK-2) Rel Index 2.5 Troponin I 0.014 B-Natriuretic Peptide 560 H Total Protein 7.6 Albumin 4.2 Globulin 3.4 Albumin/Globulin Ratio 1.2 Procalcitonin Urine Color Urine Appearance Urine pH Ur Specific [place] Urine Protein Urine Glucose (UA) Urine Ketones Urine Occult Blood Urine Nitrate Urine Bilirubin Urine Urobilinogen Ur Leukocyte Esterase Urine RBC Urine WBC Urine Bacteria Hyaline Casts Ur Culture Indicated? 10/02/19 10/02/19 10/02/19 08:40 08:40 08:52 WBC RBC Hgb Hct MCV MCH MCHC RDW Plt Count Neut % (Auto) Lymph % (Auto) Mcintosh % (Auto) Eos % (Auto) Baso % (Auto) Neut # (Auto) Lymph # (Auto) Mcintosh # (Auto) Eos # (Auto) Baso # (Auto) PT INR APTT ABG pH 7.23 L* ABG pCO2 87.5 H* ABG pO2 86 ABG HCO3 37 H ABG Total CO2 39 H ABG O2 Saturation 93 L ABG Base Excess 9.0 H FiO2 0.28 Sodium Potassium Chloride Carbon Dioxide BUN Creatinine Estimated GFR BUN/Creatinine Ratio Glucose Lactate 0.8 Calcium Magnesium Total Bilirubin AST ALT Alkaline Phosphatase Total Creatine Kinase CK-MB (CK-2) CK-MB (CK-2) Rel Index Troponin I B-Natriuretic Peptide Total Protein Albumin Globulin Albumin/Globulin Ratio Procalcitonin 0.12 Urine Color Urine Appearance Urine pH Ur Specific [place] Urine Protein Urine Glucose (UA) Urine Ketones Urine Occult Blood Urine Nitrate Urine Bilirubin Urine Urobilinogen Ur Leukocyte Esterase Urine RBC Urine WBC Urine Bacteria Hyaline Casts Ur Culture Indicated? 10/02/19 10/02/19 10:28 13:30 WBC RBC Hgb Hct MCV MCH MCHC RDW Plt Count Neut % (Auto) Lymph % (Auto) Mcintosh % (Auto) Eos % (Auto) Baso % (Auto) Neut # (Auto) Lymph # (Auto) Mcintosh # (Auto) Eos # (Auto) Baso # (Auto) PT INR APTT ABG pH 7.27 L* ABG pCO2 77.1 H* ABG pO2 134 H ABG HCO3 35 H ABG Total CO2 38 H ABG O2 Saturation 98 ABG Base Excess 8.0 H FiO2 0.40 Sodium Potassium Chloride Carbon Dioxide BUN Creatinine Estimated GFR BUN/Creatinine Ratio Glucose Lactate Calcium Magnesium Total Bilirubin AST ALT Alkaline Phosphatase Total Creatine Kinase CK-MB (CK-2) CK-MB (CK-2) Rel Index Troponin I B-Natriuretic Peptide Total Protein Albumin Globulin Albumin/Globulin Ratio Procalcitonin Urine Color Yellow Urine Appearance Clear Urine pH 5.0 Ur Specific [place] 1.015 Urine Protein 1+ H Urine Glucose (UA) Negative Urine Ketones Negative Urine Occult Blood Trace-lysed Urine Nitrate Negative Urine Bilirubin Negative Urine Urobilinogen 0.2 Ur Leukocyte Esterase Negative Urine RBC None seen Urine WBC None seen Urine Bacteria None seen Hyaline Casts 1-5/lpf Ur Culture Indicated? Cult not indicated Assessment & Plan Assessment & Plan narrative: Sreekanth Erickson is an 84-year-old male with past medical history of hypertension, hyperlipidemia, AFib on Coumadin, gout, recent subdural hemorrhage and cervical fusion complicated by swallow difficulties who was admitted to the ICU with acute hypercarbic and hypoxemic respiratory failure, likely multifactorial in origin. 1. Acute hypoxemic and hypercarbic respiratory failure, present on admission - likely superimposed on chronic hypercarbic respiratory failure given metabolic alkalosis on admission labs, history sleep apnea without use of CPAP, and high degree of hypercarbia. He also is likely aspirating based on is apparent history and with his leukocytosis of 15. Further, he may have an acute component of either systolic or diastolic heart failure based on his elevated BNP. -respiratory therapy eval and treat -continue BiPAP therapy and repeat blood gas in a few hours, patient may need to be intubated, was made aware of this -cover for aspiration with Zosyn, he was given ceftriaxone and Flagyl in the emergency room. -obtain echocardiogram to assess for possibility of heart failure. 2. Respiratory acidosis with compensated metabolic alkalosis. -management as noted above in 1. 3. Supratherapeutic INR, chronic, present on admission - reports difficulty managing INR and Coumadin recently. It is unclear why he is on Coumadin specifically for AFib as he has been having increasing difficulty controlling his INR. Will need to speak with PMD regarding this. -consult dietitian -monitor INR daily, continue to hold warfarin until in therapeutic range. 4. Paroxysmal atrial fibrillation, chronic -continue home metoprolol when able to tolerate p.o. -consider IV metoprolol if patient returns into AFib 5. BPH, with obstruction -Velasquez catheter was placed with greater than 1 L output initially -continue Velasquez catheter and resume home medications once able to tolerate p.o. - UA negative for infection. 6. Oral thrush, present on admission -oral care, continue oral anti fungal once able to tolerate p.o. 7. Gout, chronic, stable -continue home Allopurinol once able the tolerate p.o. 8. History of recent subdural hemorrhage and cervical fusion -continue C-collar for now -continue to monitor neuro status and stat CT head if necessary DVT: on coumadin, supratherapeutic level currently Code: Full, patient elects spouse as surrogate decision maker. If necessary they would desire PEG tube placement. Dispo: Admit under ICU status as patient still requiring NIPPV I spent 40 minutes providing critical care management this patient. This excludes time spent in performing separately billed procedures.
[2019-10-02 15:05] LABS: pH ABG 7.38 (7.35-7.45)
[2019-10-02 15:06] LABS: HCO3 ABG 40 mmol/L (22-26); Oxygen Saturation ABG 95 % (95-100); PO2 ABG 82 mmHg (80-100); TCO2 ABG 42 mmol/L (21-31)
[2019-10-02 15:07] LABS: PCO2 ABG 67.4 mmHg (35-45)
--- NOTE | 2019-10-02 15:39 | PC.ADMIT ---
[id number] Angelito Garcia Admission Note: The patient,Sreekanth Erickson,84 y/o, was given written information regarding hospital policies, unit procedures and contact persons. Patient's smoking status: Former smoker. Vital Signs - 8 hr 10/02/19 08:30 10/02/19 08:48 10/02/19 09:00 Temperature 97.6 F Pulse Rate 109 H 102 H 103 H Respiratory Rate 31 H 23 29 H Blood Pressure 123/76 Blood Pressure [Right Arm] 123/76 134/68 Pulse Oximetry 95 93 94 10/02/19 09:30 10/02/19 09:40 10/02/19 10:00 Temperature Pulse Rate 100 H 91 H Respiratory Rate 26 H 31 H Blood Pressure 104/54 L Blood Pressure [Right Arm] 96/78 105/61 Pulse Oximetry 98 95 10/02/19 10:12 10/02/19 11:09 10/02/19 11:44 Temperature 98.5 F Pulse Rate 93 H 87 90 Respiratory Rate 27 H 26 H 33 H Blood Pressure 116/52 L 144/52 H Blood Pressure [Right Arm] 96/78 Pulse Oximetry 100 98 96 10/02/19 12:22 10/02/19 14:37 10/02/19 14:42 Temperature Pulse Rate 82 88 Respiratory Rate 25 H 22 Blood Pressure 117/83 117/70 117/70 Blood Pressure [Right Arm] Pulse Oximetry 94 96 1145- rec'd pt from ED via stretcher. Pt noted to be wet with urine. Hygiene care performed. Noted stage 2 pressure ulcer on buttocks. Pictures taken. Pt desats with brief removal of bipap mask to 81%. RR is tachypneic mid 20s with effort noted to be shallow. Pt quickly falls asleep with decreased stimuli. Dr. Martin rounded ~ 1200. Assessed pt together. Reported respiratory status, mentation, skin issues, appearance of yen to oral cavity. Awaiting orders. 1300- Pt restless. C/o urge to urinate. Pt dribbling small amounts of urine without relief of urgency. Bladder scan performed showing greater than [address] Martin. Orders received to place indwelling catheter. Placed per aseptic technique. Pt tolerated well and reported relief after. is at bedside.
[2019-10-02] MEDS: BISACODYL 10 MG SUPP PR (18:30)
[2019-10-02 19:47] LABS: Adenovirus Not Detected (Not Detect); Bordetella pertussis Not Detected (Not Detect); Chlamydophila pneumoniae Not Detected (Not Detect); Coronavirus 229E Not Detected (Not Detect); Coronavirus HKU1 Not Detected (Not Detect); Coronavirus NL 63 Not Detected (Not Detect); Coronavirus OC43 Not Detected (Not Detect); Human Metapneumovirus Not Detected (Not Detect); Human Rhinovirus/Enterovirus Not Detected (Not Detect); Influenza A Not Detected (Not Detect); Influenza B Not Detected (Not Detect); Mycoplasma pneumoniae Not Detected (Not Detect); Parainfluenza Virus 1 Not Detected (Not Detect); Parainfluenza Virus 2 Not Detected (Not Detect); Parainfluenza Virus 3 Not Detected (Not Detect); Parainfluenza Virus 4 Not Detected (Not Detect); Respiratory Syncytial Virus Not Detected (Not Detect)
[2019-10-02 22:52] LABS: pH ABG 7.41 (7.35-7.45)
[2019-10-02 22:53] LABS: HCO3 ABG 36 mmol/L (22-26); Oxygen Saturation ABG 97 % (95-100); PCO2 ABG 57.3 mmHg (35-45); PO2 ABG 93 mmHg (80-100); TCO2 ABG 38 mmol/L (21-31)
--- NOTE | 2019-10-02 23:41 | PC.NURSE ---
Evening Shift Note: Pt initially received on bipap, 30% FIO2, 14/6 RR 30-35 but appears unlabored. Lungs diminished in all manzano. Pt was initially difficult to arouse, awoke only to oral care and talking directly into his ear. Throughout the shift pt has become easily woken by voice, is able to follow directions and minimally communicate. Pt has been mostly sleeping this shift. Pt with several wounds, notably macerated and shear injured skin on buttocks that were present on admission. Pt was turned side to side q 2 hours. Barrier cream applied. Pt with villareal catheter in place, 1175 uop this shift. Pt with no BM for several days according to , given bisacodyl suppository with no BM noted. Pt otherwise sleeping and remains NPO. Report given to Fior shift nurse manager RN.
[2019-10-03] VITALS (18 sets, daily range): BP systolic 93–123; BP diastolic 42–68; PULSE 91–127; RESP 10–42; TEMP 30.7–38.7; O2SAT 93–98; BMI 31.2
[2019-10-03] MEDS: PIPERACILLIN-TAZO 3.375 GM/50 ML FROZ.PIGGY IV ×4 (00:58→18:44)
[2019-10-03 01:43] LABS: Add Manual Diff / Slide Review NO; Basophils Absolute Auto 100 /uL (0-100); Basophils Percent Auto 0.6 % (0-2); Eosinophils Absolute Auto 100 /uL (0-450); Eosinophils Percent Auto 0.8 % (2-4); Hematocrit 37.4 % (41-53); Lymphocytes Absolute Auto 1500 /uL (1100-4500); Lymphocytes Percent Auto 11.8 % (25-40); Mean Corpuscular HGB Conc 32.1 % (30-36); Mean Corpuscular Hemoglobin 30.5 PG (26-34); Mean Corpuscular Volume 94.8 fL (80-100); Monocytes Absolute Auto 1000 /uL (0-900); Neutrophils Absolute Auto 9700 /uL (1500-7000); Neutrophils Percent Auto 78.8 % (50-75); Platelet Count 170 X10^3/uL (150-400); Red Blood Cell Count 3.95 X10^6/uL (4.5-5.9); Red Cell Distribution Width 14.7 % (11.6-14.8); White Blood Cell Count 12.3 X10^3/uL (4.5-11.0)
[2019-10-03] MEDS: ACETAMINOPHEN 650 MG SUPP PR (01:46)
--- NOTE | 2019-10-03 01:52 | PC.NURSE ---
Addendum entered by Ines Emery R.N. 10/03/19 02:33: Temp down to 99.8 at this time Original Note: NOC Note: Pt on Bipap, RR 35-45 and occ up above 50, tachy with HR 110-130 and temp was 101.7 at 0130. Notified JUAN Eli and received orders for NM APAP and to have the am labs drawn now. Pt denies pain, villareal cath is patent draining clear yellow urine. Very diminished LS to Bilat bases and clear in upper manzano, resp are shallow, Pt is tolerating Bipap. Pt is forgetful, alert to self but forgetful, unsure of his situation and location, unable to got give day or date. Pt has been oriented to place, time and situation by staff.
[2019-10-03 01:53] LABS: BUN Creatinine Ratio 25.8 (6-22); Blood Urea Nitrogen 31 mg/dL (9-20); Calcium 9.3 mg/dL (8.4-10.2); Carbon Dioxide 36 mmol/L (22-32); Chloride 95 mmol/L (98-107); Estimated Glomerular Filt Rate 57.8 mL/min (>60); Glucose 88 mg/dL (80-110); HEMOLYSIS < 15 (0-50); Magnesium 1.9 mg/dL (1.6-2.3); Potassium 3.9 mmol/L (3.4-5.1); Sodium 138 mmol/L (137-145)
[2019-10-03 01:56] LABS: Prothrombin Time 68.1 SECONDS (10.1-12.7)
[2019-10-03 02:03] LABS: INR 5.6 (0.9-1.3)
[2019-10-03 02:36] LABS: TSH w/ Reflex to FT4 0.95 uIU/mL (0.47-4.68)
[2019-10-03 05:47] LABS: HCO3 ABG 35 mmol/L (22-26); Oxygen Saturation ABG 97 % (95-100); PCO2 ABG 56.3 mmHg (35-45); PO2 ABG 95 mmHg (80-100); TCO2 ABG 37 mmol/L (21-31); pH ABG 7.41 (7.35-7.45)
[2019-10-03] MEDS: BISACODYL 10 MG SUPP PR (08:43)
[2019-10-03] MEDS: METOPROLOL IR 25 MG TABLET 12.5 MG PO (08:44)
--- NOTE | 2019-10-03 09:01 | CM.DANOTE ---
DCP: Case received, EMR reviewed. Called patient's , Shari, for patient currently sleeping. Introduced self and role via phone. Was able to obtain some baseline health and history information from patient's . DCP assessment completed with information currently available. Patient is an 84 year old male who admitted yesterday morning to the care of the hospitalist team. PCP: Dr. Puente. Payer: confirmed: [facility] Advantage. Patient came to the hospital via ambulance secondary to increased shortness of breath. Patient here for possible aspiration pneumonia. This counter caser checked on patient, was sleeping. Called , Shari, for he resides with her in [place]. Was able to obtain some information from her. According to notes, patient was here in this hospital in June, and was transferred out to higher level of care for subdural hematoma. Patient's stated that patient has been at [facility], and that they had inserted an NG tube, due to swallowing issues. He then went to [facility] with the NG tube, and recently had it removed. stated that patient had been doing well a couple of weeks ago, with his swallowing, but has been going down hill. tearful in conversation. Stated that he has been getting [facility], nursing, and P.T. as well. She has been happy with their services. Stated that he has been able to get himself to the bathroom on his own, has walker/wheel-chair. She discussed having them put in a PEG tube while he is here. mentioned completing DPOA paper work. Let her know that form can be provided. Let her know that this material planner could meet with any questions. At this time, is unclear if patient can return home with home health, or if he may need skilled services. Will see how he does here with therapy team. He will also be working with speech, and hydraulic elevator constructor as well, to help collaborate with planning. P: DCP to continue to follow, and could possibly have PEG tube placed. Will need excessive teaching if he is to return home and resume home health. Idania Perkins, JEWELS/Paraprofessional Interpreter
--- NOTE | 2019-10-03 10:07 | RT ---
PT PLACED BACK ON BIPAP FROM 4 LPM N/C (PT TAKEN OFF BIPAP BY RN AT APPROX. 0800). O2 SAT ON 4 LPM N/C NOTED AT 85% W/ SLEEP.
--- NOTE | 2019-10-03 10:37 | DIET.PN ---
Addendum entered by Nancy Trejo 10/03/19 11:36: PEG Reccs Nutritional Requirements Goal kcal/k kcal/kg Goal protein/k.3 gm/kg Fluid restriction: None Enteral Nutrition Recommendations Jevity (1.2 Dl) at 85 mL/hr - Start at 20 mL/hr, titrate by 10-20 mL/hr every 6 hours to goal - 250 mL free water flushes every 4 hours (62.5 mL/hr) - Provides 2448 kcal (28 kcal/kg) and 113 gm (1.3 gm/kg) of protein - Enteral feed and flushes provide 3146 mL (36 mL/kg) of free water Nutritional Monitor Parameters -Pt has had 13% weight loss in 3mo, may be at risk for refeeding, please check potassium, phosphorus and magnesium labs daily for first 3d and replete as needed. - Elevate head of bed 30-45 degrees while feeding - Check gastric residuals every 4 hours when initiating feeding. May check every 6-8 hours once goal rate is achieved - Hold gastric feeds for residuals more than 500 mL. Avoid holding feeds for residuals < 500 mL without other signs of intolerance - If unable to meet caloric goals after 7-10 days, consider initiating supplemental parenteral nutrition Original Note: Dietary Progress Note Assessment: Mr. Erickson is 84y M here c SOB s/p NG feeding tube removal. Pt family considering placement of PEG tube pending speech eval as pt may be aspirating. HT: 185.4cm WT: 107.5kg UBW: per [facility] record 123.9kg on 07/11/19 BMI:31.3 Nutrition Diagnosis: Severe Acute PCM r/t swallowing difficulty as complication of cervical fusion aeb pt lost 13% weight in 3 mo (severe), pt NG tube removed recently, unclear whether or not pt can swallow safely, pt currently NPO. Interventions: pending speech Diet Order: NPO pending speech EER: 2400kcal, 135g PRO (1.3g/kg per malnutrition), 3L fluids Monitoring/Evaluations: f/u tomorrow pending speech eval for reccs on POs vs PEG
[2019-10-03] MEDS: METOPROLOL TARTRATE 5 MG/5 ML INJ IV ×3 (11:19→23:03)
[2019-10-03] MEDS: NYSTATIN POWDER 15GM 1 APPLIC TOP ×2 (11:31→21:15)
--- NOTE | 2019-10-03 12:13 | CM.DPC ---
Addendum entered by Idania Perkins R.N. 10/03/19 15:47: Spoke to Maddie at [facility], she is familiar with patient. Asked to have his history and physical information faxed to her, in case he needs skilled. Let her know that there is possibility of PEG tube placement. Would need to obtain Bone auth, but this would be pending P.T. as well, and at this time, he is medically unstable for therapy. If stable tomorrow, may be able to work with P.T. team. This will be needed for a Bone auth for [facility]cc, if this is what he needs. Sent over information via fax to [facility]. Included dietary note, today's nurse's note, and prog note. Addendum entered by Idania Perkins R.N. 10/03/19 15:27: Left message with Maddie, admissions at [facility], since patient was there recently, to obtain more information. Let her know that it is a possibility that he may need [facility]. Will await her call back. Original Note: DCP Cont: Spoke to nurse title manager, Matthew, at [facility], and gave him an updated that patient was admitted here. Confirmed that patient is getting nursing, and P.T. only. Let him know that he would be updated regarding plan. If patient does get feeding tube, and is to go home, they have worked with [facility] before. It is unclear at this time if patient will go home versus mcc, for he does not have P.T. orders as of yet, since he is currently on BIPAP. He could potentially get P.T. orders tomorrow if he is medically stable. P: DCP to follow closely. He has seen Nancy in dietary, he is also to get a speech eval. Idania Perkins, RN/Gang Punch Operator
--- NOTE | 2019-10-03 14:38 | PC.NURSE ---
Pt able to tolerate off bipap x2 hours this AM ([id number]). Initially on RA but applied O2 via NC and titrated up to 4LPM for sats mainly 90% while awake. Administered PO metoprolol (per instruction by Dr. Martin as pt is tachycardic 120s with 15 ML of thin water). Pt swallowed pill but after began coughing and tearing up. Held other AM meds pending ST eval. After 2 hours off bipap, pt became tired and falling asleep. Sats noted to be to 85%. Placed bipap. Post PO metoprolol administration, pt remains tachycardic up to 130s and sustaining. Called to Dr. Martin and reported findings. Orders received for IV lopressor. Post IV administration, HR down to 100-110s, Afib and frequent PVCs. Pt is tolerating bipap well and has no c/o this shift.
--- NOTE | 2019-10-03 15:22 | P.PN_ITS ---
Subjective Subjective Date Patient Seen: 10/03/19 Time Patient Seen: 08:15 Interval history: Sreekanth Erickson is an 84-year-old male with past medical history of hypertension, hyperlipidemia, AFib on Coumadin, gout, recent subdural hemorrhage in June of 2019 who presented with shortness of breath. He remains on BiPAP this morning. His pCO2 has improved to 56. Attempted trial off of BiPAP however patient became hypoxemic and tachypneic. He was placed back on BiPAP therapy. His mental status has improved and the patient is improving. Will check another gas and again attempt removal of BiPAP mask. Echocardiogram revealed a new decreased ejection fraction of 30-35% with global hypokinesis. Exam Vital Signs (past 8 hours): - 10/03/19 08:00 10/03/19 08:04 10/03/19 10:03 Temperature 100.0 F H Pulse Rate 103 H Respiratory Rate 37 H Blood Pressure 99/68 102/66 116/66 Pulse Oximetry 93 10/03/19 13:00 Temperature 98.5 F Pulse Rate 118 H Respiratory Rate 21 Blood Pressure 101/48 L Pulse Oximetry 97 Fraction of Inspired Oxygen 30 Oxygen Delivery Method Room Air,BiPAP Oxygen Flow Rate 2 Narrative Exam Narrative: GENERAL APPEARANCE: Elderly male, lethargic but improved, in C- collar. On BiPAP mask. SKIN: Inspection of the skin reveals scattered small ecchymoses an actinic keratosis. HEENT: Normocephalic, atraumatic. Pupils equally round and reactive. Oral thrush present. NECK: Supple and symmetric. Did C-collar is noted above. There was no thyroid enlargement, and no tenderness, or masses were felt. CHEST: Normal AP diameter and normal contour without any kyphoscoliosis. LUNGS: Decreased air movement, bibasilar crackles with diminished breath sounds. No wheezing appreciated. CARDIOVASCULAR: Irregularly irregular rhythm with normal rate, no murmurs rubs or gallops appreciated. ABDOMEN: Soft, mildly distended, no guarding. MUSCULOSKELETAL: There was no tenderness or effusions noted. Muscle strength was unable to be assessed but tone is normal. EXTREMITIES: No cyanosis, clubbing. There is trace peripheral edema. NEUROLOGIC: Alert, follows commands. Moving all extremities equally. Exam limited by patient's profound lethargy. Objective Labs Result Diagrams: 10/03/19 01:35 10/03/19 01:35 Labs: Laboratory Results - last 24 hr 10/02/19 10/02/19 10/03/19 18:40 22:35 01:35 WBC 12.3 H RBC 3.95 L Hgb 12.0 L Hct 37.4 L MCV 94.8 MCH 30.5 MCHC 32.1 RDW 14.7 Plt Count 170 Neut % (Auto) 78.8 H Lymph % (Auto) 11.8 L [place] % (Auto) 8.0 Eos % (Auto) 0.8 L Baso % (Auto) 0.6 Neut # (Auto) 9700 H Lymph # (Auto) 1500 [place] # (Auto) 1000 H Eos # (Auto) 100 Baso # (Auto) 100 PT INR ABG pH 7.41 ABG pCO2 57.3 H ABG pO2 93 ABG HCO3 36 H ABG Total CO2 38 H ABG O2 Saturation 97 ABG Base Excess 11.0 H FiO2 0.30 Sodium Potassium Chloride Carbon Dioxide BUN Creatinine Estimated GFR BUN/Creatinine Ratio Glucose Calcium Phosphorus Magnesium Troponin I TSH Chlamy pneumoniae PCR Not detected Adenovirus (PCR) Not detected B.parapertussis DNA PCR Not detected Coronavirus OC43 (PCR) Not detected Coronavirus HKU1 (PCR) Not detected Coronavirus 229E (PCR) Not detected Coronavirus NL63 (PCR) Not detected Human Metapneumovir PCR Not detected Influenza Type A (PCR) Not detected Influenza Type B (PCR) Not detected M. pneumoniae (PCR) Not detected Parainfluenza 1 (PCR) Not detected Parainfluenza 2 (PCR) Not detected Parainfluenza 3 (PCR) Not detected Parainfluenza 4 (PCR) Not detected RSV (PCR) Not detected Entero/Rhino (PCR) Not detected 10/03/19 10/03/19 10/03/19 01:35 01:35 01:35 WBC RBC Hgb Hct MCV MCH MCHC RDW Plt Count Neut % (Auto) Lymph % (Auto) [place] % (Auto) Eos % (Auto) Baso % (Auto) Neut # (Auto) Lymph # (Auto) [place] # (Auto) Eos # (Auto) Baso # (Auto) PT 68.1 H INR 5.6 H* ABG pH ABG pCO2 ABG pO2 ABG HCO3 ABG Total CO2 ABG O2 Saturation ABG Base Excess FiO2 Sodium 138 Potassium 3.9 Chloride 95 L Carbon Dioxide 36 H BUN 31 H Creatinine 1.20 Estimated GFR 57.8 L BUN/Creatinine Ratio 25.8 H Glucose 88 Calcium 9.3 Phosphorus 3.0 Magnesium 1.9 Troponin I TSH 0.95 Chlamy pneumoniae PCR Adenovirus (PCR) B.parapertussis DNA PCR Coronavirus OC43 (PCR) Coronavirus HKU1 (PCR) Coronavirus 229E (PCR) Coronavirus NL63 (PCR) Human Metapneumovir PCR Influenza Type A (PCR) Influenza Type B (PCR) M. pneumoniae (PCR) Parainfluenza 1 (PCR) Parainfluenza 2 (PCR) Parainfluenza 3 (PCR) Parainfluenza 4 (PCR) RSV (PCR) Entero/Rhino (PCR) 10/03/19 10/03/19 01:35 05:15 WBC RBC Hgb Hct MCV MCH MCHC RDW Plt Count Neut % (Auto) Lymph % (Auto) [place] % (Auto) Eos % (Auto) Baso % (Auto) Neut # (Auto) Lymph # (Auto) [place] # (Auto) Eos # (Auto) Baso # (Auto) PT INR ABG pH 7.41 ABG pCO2 56.3 H ABG pO2 95 ABG HCO3 35 H ABG Total CO2 37 H ABG O2 Saturation 97 ABG Base Excess 11.0 H FiO2 0.30 Sodium Potassium Chloride Carbon Dioxide BUN Creatinine Estimated GFR BUN/Creatinine Ratio Glucose Calcium Phosphorus Magnesium Troponin I 0.020 TSH Chlamy pneumoniae PCR Adenovirus (PCR) B.parapertussis DNA PCR Coronavirus OC43 (PCR) Coronavirus HKU1 (PCR) Coronavirus 229E (PCR) Coronavirus NL63 (PCR) Human Metapneumovir PCR Influenza Type A (PCR) Influenza Type B (PCR) M. pneumoniae (PCR) Parainfluenza 1 (PCR) Parainfluenza 2 (PCR) Parainfluenza 3 (PCR) Parainfluenza 4 (PCR) RSV (PCR) Entero/Rhino (PCR) Assessment & Plan Assessment & Plan narrative: Sreekanth Erickson is an 84-year-old male with past medical history of hypertension, hyperlipidemia, AFib on Coumadin, gout, recent subdural hemorrhage and cervical fusion complicated by swallow difficulties who was admitted to the ICU with acute hypercarbic and hypoxemic respiratory failure, likely multifactorial in origin. 1. Acute hypoxemic and hypercarbic respiratory failure, present on admission - likely superimposed on chronic hypercarbic respiratory failure given metabolic alkalosis on admission labs, history sleep apnea without use of CPAP, and high degree of hypercarbia. He also is likely aspirating based on is apparent history and with his leukocytosis of 15. Further, he likely has a component of decompensated systolic heart failure given his echocardiogram results today. -respiratory therapy eval and treat -continue BiPAP therapy and repeat blood gas -cover for aspiration with Zosyn, he was given ceftriaxone and Flagyl in the emergency room. -continue Lasix for diuresis. -swallow evaluation once off of BiPAP 2. Respiratory acidosis with compensated metabolic alkalosis. -management as noted above in 1. 3. Supratherapeutic INR, chronic, present on admission - reports difficulty managing INR and Coumadin recently. It is unclear why he is on Coumadin specifically for AFib as he has been having increasing difficulty controlling his INR. Will need to speak with PMD regarding this. -consult dietitian -monitor INR daily, continue to hold warfarin until in therapeutic range. 4. Heart failure with reduced ejection fraction, acuity unclear, present on admission -ultrasound today revealed decompensated systolic heart failure with an ejection fraction of 30-35%, much declined from previous echocardiogram in November of 2014. -continue Lasix as noted above 5. Paroxysmal atrial fibrillation, chronic -continue home metoprolol when able to tolerate p.o. -patient is currently on standing IV metoprolol with adequate rate control currently -INR is supratherapeutic as noted above, continue to follow INR daily until within range and then re-dose likely at 5 mg daily. 6. BPH, with obstruction -Velasquez catheter was placed with greater than 1 L output initially -continue Velasquez catheter and resume home medications once able to tolerate p.o. - UA negative for infection. 7. Oral thrush, present on admission -oral care, continue oral anti fungal once able to tolerate p.o. 8. Gout, chronic, stable -continue home Allopurinol once able the tolerate p.o. 9. History of recent subdural hemorrhage and cervical fusion -continue C-collar for now -continue to monitor neuro status and stat CT head if necessary -swallow evaluation once off of BiPAP. states patient does not want an NG tube, and would prefer a PEG placement. 10. Severe Acute protein calorie malnutrition - r/t swallowing difficulty as complication of cervical fusion aeb pt lost 13% weight in 3 mo (severe), pt NG tube removed recently, unclear whether or not pt can swallow safely, pt currently NPO. DVT: on coumadin, supratherapeutic level currently Code: Full, patient elects spouse as surrogate decision maker. If necessary they would desire PEG tube placement. Dispo: Admit under ICU status as patient still requiring NIPPV I spent 35 minutes providing critical care management this patient. This excludes time spent in performing separately billed procedures.
[2019-10-03] MEDS: CLOTRIMAZOLE TROCHE 10 MG PO (17:55)
--- NOTE | 2019-10-03 18:02 | PC.NURSE ---
Addendum entered by Abi Loo R.N. 10/03/19 23:05: Late Entry: Pt's bridge of nose noted to be reddened and slightly painful to touch from bipap mask resting continuously on it. At 1600, duoderm placed for prevention of skin breakdown and decreasing discomfort. Pls continue to monitor. Addendum entered by Abi Loo R.N. 10/03/19 21:16: Pt sleeping soundly, no c/o of pain. Satting 97% on 30% BiPap. Turning Q2HRs. Continues to be NPO. Given two ice chips per Dr Martin's approval with oral care. 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 HR 106-127 with uni focal PVCs. Urine output low-92cc over 3 hours. Respotiioning Q2hrs for decreased skin breakdown. Giving two ice chips for dry mouth-resulting from BiPap. Dr Martin aware of all the above. Continues on Bipap 30% satting 98%, denies difficulty breathing. LS diminished throughout, very difficult to hear heart sounds. Holding IV Lasix for now per MD order.
[2019-10-03 18:36] LABS: Fractionated Inspired Oxygen 30; HCO3 ABG 35 mmol/L (22-26); Oxygen Saturation ABG 98 % (95-100); PCO2 ABG 57.4 mmHg (35-45); PO2 ABG 104 mmHg (80-100); TCO2 ABG 37 mmol/L (21-31); pH ABG 7.39 (7.35-7.45)
[2019-10-04] VITALS (17 sets, daily range): BP systolic 99–138; BP diastolic 44–80; PULSE 86–133; RESP 8–32; TEMP 30.9–37.2; O2SAT 91–98
[2019-10-04] MEDS: PIPERACILLIN-TAZO 3.375 GM/50 ML FROZ.PIGGY IV ×4 (01:15→18:30)
[2019-10-04 05:05] LABS: Add Manual Diff / Slide Review NO; Basophils Absolute Auto 100 /uL (0-100); Basophils Percent Auto 0.8 % (0-2); Eosinophils Absolute Auto 400 /uL (0-450); Eosinophils Percent Auto 3.5 % (2-4); Hematocrit 37.9 % (41-53); Hemoglobin 12.4 g/dL (13.5-17.5); Lymphocytes Absolute Auto 1700 /uL (1100-4500); Lymphocytes Percent Auto 14.5 % (25-40); Mean Corpuscular HGB Conc 32.9 % (30-36); Mean Corpuscular Volume 94.4 fL (80-100); Monocytes Absolute Auto 1000 /uL (0-900); Monocytes Percent Auto 8.2 % (3-14); Neutrophils Absolute Auto 8700 /uL (1500-7000); Platelet Count 167 X10^3/uL (150-400); Red Blood Cell Count 4.01 X10^6/uL (4.5-5.9); Red Cell Distribution Width 14.7 % (11.6-14.8)
[2019-10-04] MEDS: METOPROLOL TARTRATE 5 MG/5 ML INJ IV ×4 (05:08→22:07)
[2019-10-04 05:11] LABS: Prothrombin Time 80.8 SECONDS (10.1-12.7)
[2019-10-04 05:14] LABS: INR 6.7 (0.9-1.3)
[2019-10-04 05:18] LABS: BUN Creatinine Ratio 34.6 (6-22); Blood Urea Nitrogen 45 mg/dL (9-20); Calcium 9.4 mg/dL (8.4-10.2); Carbon Dioxide 34 mmol/L (22-32); Chloride 97 mmol/L (98-107); Estimated Glomerular Filt Rate 52.7 mL/min (>60); Glucose 76 mg/dL (80-110); HEMOLYSIS < 15 (0-50); Magnesium 2.1 mg/dL (1.6-2.3); Phosphorous 3.2 mg/dL (2.3-3.7); Potassium 3.8 mmol/L (3.4-5.1); Sodium 141 mmol/L (137-145)
--- NOTE | 2019-10-04 09:18 | CM.DPC ---
DCP Cont: Spoke to Dr. Martin, hospitalist, who had spoken to . She mentioned that she did not want to return to [facility]. Patient will also be working with speech therapy, to determine if he will need a PEG tube. He is not yet working with P.T, since he has been on BIPAP. P: DCP to continue to follow. Will speak to when about planning, as he becomes more stable. Idania Perkins, JEWELS/[employer]duit [employer]ender
[2019-10-04] MEDS: NYSTATIN POWDER 15GM 1 APPLIC TOP ×2 (10:32→20:13)
--- NOTE | 2019-10-04 11:59 | DI.RAD.S_ITS ---
PROCEDURE: FL BARIUM SWALLOW W SPEECH INDICATIONS: Dysphagia TECHNIQUE: Examination was conducted in conjunction with speech pathology per standard protocol. In the lateral projection, filming was performed of the patient swallowing. AP projection filming may also be performed with patient swallowing. COMPARISON: [facility], , ECHO DOPPLER COMPLETE, 10/03/2019, 10:48. FINDINGS: Function: The oral preparatory phase appears normal, with proper containment. The subsequent oral propulsive phase, pharyngeal phase, and esophageal phase of swallowing also appear normal with all proffered substances. Trace laryngotracheal penetration with liquid consistency. No reyna laryngotracheal aspiration. No pathologic vallecular pooling. Morphology: No cricopharyngeal bar is identified. No cervical esophageal webs. No Zenker's diverticulum. No strictures. IMPRESSION: Trace laryngeal penetration. Please see separate speech pathologist report. Dictated by: Roman Degroot M.D. on 10/04/2019 at 14:04 Approved by: Roman Degroot M.D. on 10/04/2019 at 14:07
--- NOTE | 2019-10-04 12:57 | ST.IPCSEOM ---
Visit Care Team Role Provider Type Martin Puente MD Primary Care Provider Non-Staff Specialty: Medical Address: [address] [place] [address] [address], [place], [address] Email: Fatmata Pardo DO Emergency Provider Physician Specialty: Emergency Medicine Address: [address] [place] [address], [facility] Email: [email or web address] Jeancarlos Martin DO Admit Provider Physician Attending Provider Specialty: Internal Medicine Address: [address] [place] [address], [facility] Email: [email or web address] Current Diagnoses Acute respiratory failure with hypoxia (10/02/19) Past Medical History (Last Updated 10/02/19 @ 13:35 by Ayad Buenrostro RN) Abdominal bruit (Acute Medical) Afib (Acute Medical) Back pain (Acute Medical) Bladder cancer (Acute Medical) Bradycardia (Acute Medical) CAD (coronary artery disease) (Acute Medical) Cardiomyopathy (Acute Medical) Constipation (Chronic Medical) Degenerative joint disease (Acute Medical) Epistaxis (Acute Medical) Gout (Acute Medical) History of subdural hematoma (Acute Medical) Hyperlipidemia (Acute Medical) Hyperuricemia (Acute Medical) Inguinal hernia (Acute Medical) Myositis (Acute Medical) Obstructive sleep apnea (Acute Medical) Polyneuropathy (Acute Medical) Thoracic spondylosis without myelopathy (Acute Medical) Tremor of right hand (Chronic Medical) Umbilical hernia (Acute Medical) UTI (urinary tract infection) (Acute Medical) Varicose veins of both lower extremities (Acute Medical) Venous stasis ulcer (Acute Medical) Speech-Language Pathology Swallow Evaluation [employer]IVE [employer]EWARD Clinical Swallow Evaluation Start: 10/04/19 12:43 Freq: Status: Active Protocol: Document 10/04/19 12:43 LNK (Rec: 10/04/19 12:54 LNK [id number]) Clinical Swallow Evaluation Session Time Visit Start Time 11:05 Visit Stop Time 11:30 Total Visit Minutes [address] Martin Reason for Referral dysphagia Setting Assessment Location Acute Care Visit Type Note Type Initial Evaluation Next Note Type Next Note Type Re-Evaluation Patient Information Identification Type Name,ID Wristband History Pt is an 84-year-old male with past medical history of hypertension, hyperlipidemia, AFib on Coumadin, gout, recent subdural hemorrhage in June of 2019 for which he was seen here and then transferred to [place]. His subdural hematoma has been stable however further workup during that admission in [place] showed cervical stenosis and he underwent a cervical fusion also in June of 2019. Since then he has had a complex postoperative course. He presented today with difficulty breathing. This is been going on for the past few weeks according to the patient and his . The shortness of breath has been present over the past month but over the past week at his been worsening. Pt's postoperative course included a stay at rehab and a prolonged nasogastric tube for swallowing difficulties He has developed thrush as well, for which he has been on antifungals recently. According to the , he has had different providers say that he can swallow and others that say that he can't. Subjective Observations Pt was in his bed with his next to him. Pt has a cervical collar on. They report he is able to take the collar off for short periods of time. The pt and his reviewed the pt's history since ACDF surgery in June. Findings Impressions No PO trials were given secondary to silent aspiration risk. After discussing the pt's history, it was recommended that an MBSS be completed to determine pt's risk for aspiration and to help develop a plan of care. MBSS scheduled for 1330 today. Treatment Plan Therapy Recommendations MBSS determine pt's risk for aspiration and to help develop a plan of care.
[2019-10-04] MEDS: CLOTRIMAZOLE TROCHE 10 MG PO ×3 (14:32→22:07)
--- NOTE | 2019-10-04 14:50 | CM.DPC ---
DCP Cont: Spoke to patient's nurse in ICU, Rosalind. Patient has improved today. He is now sitting up. He had his barium swallow today, and will be on a modified diet. Patient could potentially DC home back to [facility]. P: DCP to continue to follow closely. Patient could potentially DC home with resumption of [facility], nursing. Will see how he does with P.T. here in hospital. Idania Perkins RN/Emergency Room Orderly
--- NOTE | 2019-10-04 15:27 | ST.IPDYTX ---
Visit Care Team Role Provider Type Martin Puente MD Primary Care Provider Non-Staff Specialty: Medical Address: [facility] [address], [place], [address] Email: Fatmata Pardo DO Emergency Provider Physician Specialty: Emergency Medicine Address: [address] [place] [address], [id number] Email: [email or web address] Jeancarlos Martin DO Admit Provider Physician Attending Provider Specialty: Internal Medicine Address: [address] [place] [address], [address] Email: [email or web address] VETERINARY SURGERY TECHNOLOGIST Dysphagia Treatment VETERINARY SURGERY TECHNOLOGIST Dysphagia Treatment Start: 10/04/19 12:43 Freq: Status: Active Protocol: Document 10/04/19 14:34 LNK (Rec: 10/04/19 15:21 LNK [id number]) Dysphagia Treatment Session Time Visit Start Time 14:00 Visit Stop Time 14:30 Total Visit Minutes 30 Setting Assessment Location Acute Care Visit Type Note Type Treatment Note Next Note Type Next Note Type Treatment Note Patient Information Identification Type Name,ID Wristband Subjective Observations Following MBSS, Pt, and were present for discussion of initial results of MBS( see separate MBSS report). Treatment Liquids Trialed [place] Administration Type Controlled Cup Sip,Self- Feeding Oral Strategies Upright at 90 degrees,Double Swallow Pharyngeal Strategies Double Swallow Assessment Patient Response to Treatment Fair Rehab Potential Good Diet Recommendations Comment Start with nectar liquid with monitoring tolerance Liquids Order [place] Medication Recommendations Crushed in Carrier Aspiration Precautions Recommended Precautions Upright at 90 Degrees,Small Bites/Sips,Supraglottic Swallow,Liquids from Cup Treatment Plan Placement Recommendation after Discharge Long-Term Facility Appropriate for Continued Therapy Yes Therapy Recommendations Continued swallowing therapy targeting safe swallow techniques as well as lingua-pharyngeal exercises to improve swallow function. Recommend outpatient therapy for swallowing after discharge Dysphagia Goals Pt will safely tolerate the least restrictive diet to meet nutrition and hydration needs. Pt will participate in swallow exercises to increase lingua pharyngeal ROM and strength Pt will perform safe swallow techniques to reduce aspiration risk.
[2019-10-04] MEDS: ATORVASTATIN 20 MG TABLET 80 MG PO (16:40)
[2019-10-04] MEDS: FUROSEMIDE 40 MG/4 ML VIAL IV ×2 (16:41→23:43)
--- NOTE | 2019-10-04 18:22 | ST.SWALLOW ---
Visit Care Team Role Provider Type Martin Puente MD Primary Care Provider Non-Staff Specialty: Medical Address: [facility] [address], [place], [address] Email: Fatmata Pardo DO Emergency Provider Physician Specialty: Emergency Medicine Address: [address] [place] [address], [id number] Email: [email or web address] Provider Physician Attending Provider Specialty: Internal Medicine Address: [address] [place] [address], [id number] Email: [email or web address] Modified Barium Swallow Study RN RADIATION Modified Barium Swallow Study Start: 10/04/19 12:43 Freq: Status: Active Protocol: Document 10/04/19 17:45 LNK (Rec: 10/04/19 18:22 LNK [id number]) Modified Barium Swallow Study Total Time Visit Start Time 13:30 Visit Stop Time 14:00 Total Visit Minutes [address] Martin Setting Setting Acute Care Patient Information Identification Type Name,ID Wristband Patient History Pt is an 84-year-old male with past medical history of hypertension, hyperlipidemia, AFib on Coumadin, gout, recent subdural hemorrhage in June of 2019 for which he was seen here and then transferred to [place]. His subdural hematoma has been stable however further workup during that admission in [place] showed cervical stenosis and he underwent a cervical fusion also in June of 2019. Since then he has had a complex postoperative course. He presented today with difficulty breathing. This is been going on for the past few weeks according to the patient and his . The shortness of breath has been present over the past month but over the past week at his been worsening. Pt's postoperative course included a stay at rehab and a prolonged nasogastric tube for swallowing difficulties He has developed thrush as well, for which he has been on antifungals recently. According to the , he has had different providers say that he can swallow and others that say that he can't. Subjective Observations Pt was seated in the fluoroscopy chair. Directions and instructions for the procedure were explained. The pt indicated he understood and agreed to proceed. His cervical collar was removed for the study. Pt did not have his dentures in his mouth . Patient Positioning Position View Lateral Imaging Lateral View Textures Administered Trials Presented Thin Liquid via Spoon,Thin Liquid via Cup,[place] Liquid via Spoon,[place] Liquid via Cup,Honey Liquid via Spoon, Dysphagia Blenderized Textures ,Dysphagia Advanced Textures Oral Phase Source: MBSIMP (TM) (C) Bolus Specific Scoring Grid Lip Closure WFL Tongue Control During Bolus Hold WFL Bolus Transport/Lingual Motion Mild Impairment A/P Lingual Propulsion Delay Yes Number of Seconds Delayed (seconds) 2-3 with peaches Oral Residue Minimal Impairment Nasal Regurgitation No Additional Oral Phase Observations With the exception of the pt forgetting his dentures and being edentulous, pt's OM appeared to be WFL. Delayed A- P transport with peaches observed. This may be related to the lack of dentures. Pharyngeal Phase Source: MBSIMP (TM) (C) Bolus Specific Scoring Grid Delayed Initiation of Pharyngeal Swallow Yes: premature spillage to the valeculla pre-swallow response Soft Palate Elevation WFL Tongue Base Strength/Range of Motion Moderate Impairment Residue Along the Tongue Base Yes Clearance of Residue Along Tongue Base Moderate Impairment Laryngeal Elevation Moderate Impairment Anterior Hyoid Movement Severe Impairment Epiglottic Range of Motion Mild Impairment Vallecular Residue Yes Clearance of Vallecular Residue Mild Impairment Laryngeal Vestibular Closure Mild Impairment Pharyngeal Stripping Wave Mild Impairment Pharyngeal Contraction Mild Impairment Posterior Pharyngeal Wall Residue Yes Clearance of Posterior Pharyngeal Wall Mild Impairment Residue Upper Esophageal Sphincter Opening WFL Residue in the Pyriform Sinuses No: Trace to minimal residue in PS Clearance of Residue in the Pyriform WFL Sinuses Esophageal Clearance Upright Position WFL Pharyngoesophageal Backflow Observed No Additional Pharyngeal Phase Observations Premature bolus spillage was observed to the valeculla before swallow initiated. Tongue base was weak with significant residue remaining post swallow. Reduced hyolaryngeal elevation with minimal hyoid bone movement observed. This, and the weakened tongue base contribute to pooling within the valeculla and the quality of the epiglottic seal on the laryngeal vestibule. Sub- epiglottic weakness was observed, contributing to the valecullar pooling as well. There was mild reduction of the posterior wall stripping/ contractions that contribute to the bolus control to the UES . Residue was observed on the posterior pharyngeal wall over all trials. An odd flap of tissue was also noted on the posterior pharyngeal wall near the hyoid bone and tip of the epiglottis. It did not appear to interfere with bolus control or impact the swallow. Trace residue noted in the pyriform sinuses. Trace penetration of thin liquids only to the laryngeal vestibule was observed. No aspiration observed. Pooling and residue was cleared when the pt swallowed a second time and/or coughed when cued. A/P View Clinical Impressions Dysphagia Type Mild-moderate pharyngeal dysphagia Rehabilitation Potential Excellent Patient Appropriate for Therapy Yes Recommendations Diet Liquids Order [place] Diet Order Dysphagia Mechanical Medication Recommendation Crushed in [place]rier Aspiration Precautions Recommended Precautions Upright at 90 Degrees,Frequent Rest Periods,Small Bites/Sips, Effortful Swallow,Double Swallow,Supraglottic Swallow Treatment Plan Therapy Recommendations Inpatient Speech Therapy, Outpatient Speech Therapy,Base of Tongue Exercises, Compensatory Strategy Education Compensatory Strategies Recommendations Sitting Upright (90 deg), Double Swallow,Supraglottic Swallow,No Straw,Liquids from Cup,Small Bites and Sips Short Term Goals Pt will safely swallow the least restrictive diet to meet his nutrition and hydration needs without s/sx aspiration. Family education re: safe swallow strategies, aspiration precautions and swallow exercises Pt will be able to participate in therapy targeting safe swallow strategies, aspiration precautions and swallow exercises Placement Recommendation After Discharge Assisted Facility
--- NOTE | 2019-10-04 19:31 | PM.PN.1 ---
Subjective Subjective Date Patient Seen: 10/04/19 Time Patient Seen: 08:50 Interval history: Sreekanth Erickson is an 84-year-old male with past medical history of hypertension, hyperlipidemia, AFib on Coumadin, gout, recent subdural hemorrhage in June of 2019 who presented with shortness of breath. His pCO2 today has improved and patient was able to be removed off his BiPAP. He should continue CPAP at night or while sleeping. His mental status is markedly improved and the patient is more awake today. He feels well today and denies shortness of breath or chest pain, fevers or chills. His INR increased actually today. Patient underwent evaluation with speech therapy and had a modified barium swallow. He was started on a dysphagia diet and is now eating. Exam Vital Signs (past 8 hours): - 10/04/19 12:12 10/04/19 15:33 10/04/19 16:40 Temperature 98.5 F 98.6 F Pulse Rate 116 H 122 H 131 H Respiratory Rate 16 21 32 H Blood Pressure 99/44 L 134/63 138/63 Pulse Oximetry 92 93 Fraction of Inspired Oxygen 30 Oxygen Delivery Method Room Air Oxygen Flow Rate 0 Narrative Exam Narrative: GENERAL APPEARANCE: Elderly male, no acute distress and breathing comfortably on room air. SKIN: Inspection of the skin reveals scattered small ecchymoses an actinic keratosis. HEENT: Normocephalic, atraumatic. Pupils equally round and reactive. Oral thrush present. NECK: Supple and symmetric. In C-collar is noted above. There was no thyroid enlargement, and no tenderness, or masses were felt. CHEST: Normal AP diameter and normal contour without any kyphoscoliosis. LUNGS: Improved air movement. Bibasilar crackles improved at by a lateral lung bases. He had mild wheezing this morning which improved cough. CARDIOVASCULAR: Irregularly irregular rhythm with normal rate, no murmurs rubs or gallops appreciated. ABDOMEN: Soft, nondistended, nontender. MUSCULOSKELETAL: There was no tenderness or effusions noted. Muscle strength was unable to be assessed but tone is normal. EXTREMITIES: No cyanosis, clubbing. There is trace peripheral edema. NEUROLOGIC: Alert and oriented. Follows commands. Moving all extremities equally. Objective Labs Result Diagrams: 10/04/19 04:45 10/04/19 04:45 Labs: Laboratory Results - last 24 hr 1210/04/19 10/04/19 04:45 04:45 04:45 WBC 12.0 H RBC 4.01 L Hgb 12.4 L Hct 37.9 L MCV 94.4 MCH 31.0 MCHC 32.9 RDW 14.7 Plt Count 167 Neut % (Auto) 73.0 Lymph % (Auto) 14.5 L [place] % (Auto) 8.2 Eos % (Auto) 3.5 Baso % (Auto) 0.8 Neut # (Auto) 8700 H Lymph # (Auto) 1700 [place] # (Auto) 1000 H Eos # (Auto) 400 Baso # (Auto) 100 PT 80.8 H D INR 6.7 H* Sodium 141 Potassium 3.8 Chloride 97 L Carbon Dioxide 34 H BUN 45 H Creatinine 1.30 H Estimated GFR 52.7 L BUN/Creatinine Ratio 34.6 H Glucose 76 L Calcium 9.4 Phosphorus 3.2 Magnesium 2.1 Assessment & Plan Assessment & Plan narrative: Sreekanth Erickson is an 84-year-old male with past medical history of hypertension, hyperlipidemia, AFib on Coumadin, gout, recent subdural hemorrhage and cervical fusion complicated by swallow difficulties who was admitted to the ICU with acute hypercarbic and hypoxemic respiratory failure, likely multifactorial in origin. He is now currently off of BiPAP therapy, and doing well. 1. Acute hypoxemic and hypercarbic respiratory failure, present on admission, improved-likely superimposed on chronic hypercarbic respiratory failure given metabolic alkalosis on admission labs and an improvement take a choudhury with his pCO2 of 56. History sleep apnea without use of CPAP, and high degree of hypercarbia. He also is likely aspirating based on is apparent history and with his leukocytosis of 15. Further, he likely has a component of decompensated systolic heart failure given his echocardiogram results. -appreciate respiratory therapy assistance, patient should be on CPAP therapy when asleep and at night. -cover for aspiration with Zosyn, he was given ceftriaxone and Flagyl in the emergency room. -continue Lasix for diuresis, he is nearing euvolemia based on exam, will likely transition to oral Lasix tomorrow. -NEON SIGN INSTALLER evaluation appreciated, patient on a dysphagia diet currently. 2. Respiratory acidosis with compensated metabolic alkalosis, resolved. -management as noted above in 1. 3. Supratherapeutic INR, chronic, present on admission - reports difficulty managing INR and Coumadin recently. It is unclear why he is on Coumadin specifically for AFib as he has been having increasing difficulty controlling his INR. -consult dietitian -monitor INR daily, continue to hold warfarin until in therapeutic range. 4. Heart failure with reduced ejection fraction, acuity unclear, present on admission -ultrasound on hospital day 1 revealed decompensated systolic heart failure with an ejection fraction of 30-35%, much declined from previous echocardiogram in November of 2014. -continue Lasix as noted above -maximize metoprolol for afib as he is still intermittently tachycardic, however this is improving today. -patient reports allergy to lisinopril, consider small dose losartan prior to discharge. 5. Paroxysmal atrial fibrillation, chronic -continue home metoprolol -patient is currently on standing IV metoprolol with adequate rate control currently -INR is supratherapeutic as noted above, continue to follow INR daily until within range and then re-dose likely at 5 mg daily. 6. BPH, with obstruction -Velasquez catheter was placed with greater than 1 L output initially -continue Velasquez catheter and resume home medications. - UA negative for infection. - attempt trial of void tomorrow. 7. Oral thrush, present on admission -oral care, continue oral anti fungal 8. Gout, chronic, stable -continue home Allopurinol 9. History of recent subdural hemorrhage and cervical fusion -continue C-collar for now -continue to monitor neuro status and stat CT head if necessary -swallow evaluation as noted above, on modified dysphagia diet. 10. Severe Acute protein calorie malnutrition - r/t swallowing difficulty as complication of cervical fusion aeb pt lost 13% weight in 3 mo (severe), pt NG tube removed recently, unclear whether or not pt can swallow safely. - appreciate dietary recommendations. DVT: on coumadin, supratherapeutic level currently Code: Full, patient elects spouse as surrogate decision maker. Dispo: Remains medically active, INR still supratherapeutic. Pending physical and occupational therapy evaluations.
[2019-10-04] MEDS: SENNOSIDES 8.6 MG TABLET 17.2 MG PO (20:13)
[2019-10-04] MEDS: GABAPENTIN 300 MG CAPSULE PO (20:13)
[2019-10-05] VITALS (19 sets, daily range): BP systolic 113–143; BP diastolic 61–89; PULSE 104–132; RESP 6–33; TEMP 31–37.4; O2SAT 91–97
[2019-10-05] MEDS: METOPROLOL ER 50 MG TABLET PO ×3 (01:04→20:31)
[2019-10-05] MEDS: PIPERACILLIN-TAZO 3.375 GM/50 ML FROZ.PIGGY IV (01:05)
[2019-10-05 05:29] LABS: Add Manual Diff / Slide Review NO; Basophils Absolute Auto 100 /uL (0-100); Basophils Percent Auto 0.5 % (0-2); Eosinophils Absolute Auto 700 /uL (0-450); Eosinophils Percent Auto 6.1 % (2-4); Hematocrit 37.4 % (41-53); Hemoglobin 12.4 g/dL (13.5-17.5); Lymphocytes Absolute Auto 1700 /uL (1100-4500); Lymphocytes Percent Auto 15.8 % (25-40); Mean Corpuscular HGB Conc 33.2 % (30-36); Mean Corpuscular Hemoglobin 30.9 PG (26-34); Mean Corpuscular Volume 93.2 fL (80-100); Monocytes Absolute Auto 1000 /uL (0-900); Monocytes Percent Auto 8.8 % (3-14); Neutrophils Absolute Auto 7500 /uL (1500-7000); Neutrophils Percent Auto 68.8 % (50-75); Platelet Count 195 X10^3/uL (150-400); Red Blood Cell Count 4.02 X10^6/uL (4.5-5.9); Red Cell Distribution Width 14.6 % (11.6-14.8)
[2019-10-05 05:31] LABS: BUN Creatinine Ratio 36.9 (6-22); Blood Urea Nitrogen 48 mg/dL (9-20); Calcium 9.4 mg/dL (8.4-10.2); Carbon Dioxide 37 mmol/L (22-32); Chloride 95 mmol/L (98-107); Estimated Glomerular Filt Rate 52.7 mL/min (>60); Glucose 127 mg/dL (80-110); HEMOLYSIS < 15 (0-50); Phosphorous 2.9 mg/dL (2.3-3.7); Potassium 3.4 mmol/L (3.4-5.1); Sodium 141 mmol/L (137-145)
[2019-10-05] MEDS: METOPROLOL TARTRATE 5 MG/5 ML INJ IV ×2 (05:46→23:18)
[2019-10-05] MEDS: POTASSIUM CHLORIDE 40 MEQ in SODIUM CHLORIDE 0.9% 500 ML 130 ML IV (06:17)
[2019-10-05 08:04] LABS: Alanine Aminotransferase 12 IU/L (<50); Albumin 3.8 g/dL (3.5-5.0); Albumin Globulin Ratio 1.1 (1.0-2.8); Alkaline Phosphatase 83 U/L (38-126); Aspartate Aminotransferase 28 IU/L (17-59); Bilirubin Total 1.2 mg/dL (0.2-1.3); Bilirubin Unconjugated 0.8 mg/dL (0.0-1.1); Globulin 3.5 g/dL (1.7-4.1); HEMOLYSIS < 15 (0-50); Total Protein 7.3 g/dL (6.3-8.2)
--- NOTE | 2019-10-05 08:08 | CM.DPC ---
Addendum entered by Magi An LPN 10/06/19 08:36: Quick review of OT/PT notes from yesterday late afternoon show that therapy on hold and will try again today. Addendum entered by Magi An LPN 10/05/19 15:22: OT Amanda is now reviewing case before she does eval. She notes INR is quite high and that she will need to get ok from Dr. Martin before proceeding with any therapy. Addendum entered by Magi An LPN 10/05/19 14:36: OF NOTE: if a snf stay is needed: Payer is [place] and this would need to be auth'd. Until OT/PT notes are available will not be able to proceed re this option. Will discuss in Team Rounds tomorrow and plan to check in with pt and his as soon as more is known. Addendum entered by Magi An LPN 10/05/19 14:20: Was just informed that RT did not trial CPAP last night, pt continued on BIPAP. CPAP trial with RT will happen tonight per ICU staff. Looked for OT/PT evals: not available. Review of orders reveals shows not in place thus far. Spoke now with Dr. Martin to update him. He requests orders be placed/done. Addendum entered by Magi An LPN 10/05/19 11:32: Spoke with Veena/Dragan GONZALEZ. She confirms pt is open to their services but they have not received any clinical information re this stay. FIDEL Calabrese agrees to fax same today. Dr. Martin did clarify in Team Rounds that pt failed CPAP trial and that he was going to discuss with RT need for setting up BIPAP at d/c. Original Note: DCP: continued: case received, EMR reviewed. See that pt had the MBS with HOME THEATER EXPERT and with mild to moderate dysphagia noted but no s/s aspiration. He is off BIPAP, recommended for CPAP when sleeping and at night...unclear if this will be new for him or if this is to continue after d/c. PT and OT are pending: no notes are yet available. Complexity of pt's recent medical history is noted: Pt was here in June with a transfer to higher level of care: subdural hemorrhage. Per report, he also in same month had a cervical spinal fusion and developed swallow difficulties. Went to snf setting on tube feeds. Pt [facility] pt's does not wish him to return there. P: discuss in Team Rounds today. Follow up with pt and his as POC unfolds for further discussion of d/c issues and options. Admission status: INPT as of 10/02. Payer: [facility] ADV.
--- NOTE | 2019-10-05 08:45 | ST.IPDYTX ---
[employer] Dysphagia Treatment [employer] Dysphagia Treatment Start: 10/04/19 12:43 Freq: Status: Active Protocol: Document 10/05/19 10:57 TLC (Rec: 10/05/19 11:05 TLC [id number]) Dysphagia Treatment Session Time Visit Start Time 08:45 Visit Stop Time 09:15 Total Visit Minutes 30 Setting Assessment Location Acute Care Visit Type Note Type Treatment Note Next Note Type Next Note Type Treatment Note Patient Information Subjective Observations Patient was seen sitting up in bed with breakfast tray. He recalled the results of the MBS yesterday and agreed to participate in dysphagia therapy. Treatment Liquids Trialed [place] Solids Trialed Dysphagia Mechanical Administration Type Controlled Cup Sip,Self- Feeding Oral Strategies Upright at 90 degrees,Double Swallow Pharyngeal Strategies Double Swallow Treatment Activities Provided written and verbal education regarding results of MBS, recommended diet, strategies and exercises. Provided written steps on implementing effortful swallow , supraglottic swallow and tongue pull backs. Patient consumed scrambled eggs, banana slices and nectar thick juice safely and at a slow rate. Verbal prompts provided for use of a double swallow. No overt s/sx of aspiration during the meal. Observed medication administration by nurse. Patient swallowed pills whole with nectar thick juice without difficulty. We discussed ongoing rehab to include strengthening exercises and advancing diet with [employer] at time of discharge (home health vs. SNF). Assessment Patient Response to Treatment Excellent Rehab Potential Good Assessment of Improvement Excellent understanding of and implementation of recommendations. Diet Recommendations Liquids Order [place] Diet Order Dysphagia Mechanical Medication Recommendations Whole,One at a Time Aspiration Precautions Recommended Precautions Upright at 90 Degrees,Small Bites/Sips,Supraglottic Swallow,Liquids from Cup Treatment Plan Placement Recommendation after Discharge Halfway Facility,Home with Home Health Appropriate for Continued Therapy Yes Therapy Recommendations Dysphagia management including strengthening exercises and advancing diet when appropriate. Dysphagia Goals Don will safely swallow the least restrictive diet to meet his nutrition and hydration needs without s/sx aspiration. Family education re: safe swallow strategies, aspiration precautions and swallow exercises Don will participate in therapy targeting safe swallow strategies, aspiration precautions and swallow exercises.
[2019-10-05] MEDS: ALLOPURINOL 300 MG TABLET PO (09:10)
[2019-10-05] MEDS: TAMSULOSIN 0.4 MG CAPSULE 0.8 MG PO (09:10)
[2019-10-05] MEDS: FOLIC ACID 1 MG TABLET PO (09:11)
[2019-10-05] MEDS: GABAPENTIN 300 MG CAPSULE PO ×2 (09:11→20:31)
[2019-10-05] MEDS: NYSTATIN POWDER 15GM 1 APPLIC TOP ×2 (09:16→20:30)
[2019-10-05] MEDS: CLOTRIMAZOLE TROCHE 10 MG PO ×5 (09:17→21:22)
[2019-10-05] MEDS: POLYETHYLENE GLYCOL 3350 17 GM POWD.PACK PO (09:17)
--- NOTE | 2019-10-05 11:53 | DIET.PN ---
Dietary Progress Note Assessment: Mr. Erickson is 84y M here c SOB s/p NG feeding tube removal. Pt passed MBSS c assigned diet order of Dysphagia-mech soft/nectar liquids holding off on PEG placement at this time. Upon RD f/u, pt excited to have real food, ate well at breakfast c assistance. Pt on intermittent bipap reducing opportunity to consume frequent meals. Pt has large body frame requiring high PRO intake of 135g PRO per day to support PCM dx (1.3g/kg). Educated pt and on importance of PRO c meals and as snacks. Also discussed respiratory quotient and to prioritize PRO and fat intake over carbs to help ease of breathing. Pt enjoys ONS Ensure drinks so will send up with meal trays to thicken and consume as snacks to support PCM. HT: 185.4cm WT: 105.8 kg UBW: per [facility] record 123.9kg on 07/11/19 BMI:30.8 Nutrition Diagnosis: Severe Acute PCM r/t swallowing difficulty as complication of cervical fusion aeb pt lost 13% weight in 3 mo (severe), pt NG tube removed recently, pt assigned nectar thick and mechanical soft diet c 135g PRO reccs (1.3g/kg per malnutrition) and is on intermittent bipap. Interventions: 1. Recc ONS Ensure Enlive, thickened, tid to supplement kcal and PRO providing 44% of PRO and kcal needs. 2. Recc PRO c every meal Diet Order: Dysphagia mech soft, nectar thick EER: 2400kcal, 135g PRO (1.3g/kg per malnutrition), 3L fluids Monitoring/Evaluations: POs, diet adjustment, PCM
[2019-10-05] MEDS: FUROSEMIDE 40 MG/4 ML VIAL IV (13:00)
--- NOTE | 2019-10-05 13:08 | PM.PN.1 ---
Subjective Subjective Date Patient Seen: 10/05/19 Time Patient Seen: 08:00 Interval history: Sreekanth Erickson is an 84-year-old male with past medical history of hypertension, hyperlipidemia, AFib on Coumadin, gout, recent subdural hemorrhage in June of 2019 who presented with shortness of breath. His pCO2 today has improved and patient was able to be removed off his BiPAP. He should continue CPAP at night or while sleeping. His mental status is markedly improved and the patient is more awake today. He feels well today and denies shortness of breath or chest pain, fevers or chills. He has had no bleeding, denies dark stools, bright red blood per rectum, or hematemesis. His INR increased actually today, his Zosyn was discontinued based on a possible interaction and he was changed to Augmentin instead. He did not have CPAP trial overnight, which we will do overnight tonight. He is pending PT and OT today. Exam Vital Signs (past 8 hours): - 10/05/19 08:00 10/05/19 10:57 10/05/19 12:00 Temperature 98.1 F 98.3 F Pulse Rate 113 H 108 H 113 H Respiratory Rate 16 20 Blood Pressure 135/73 120/63 124/63 Pulse Oximetry 91 95 Fraction of Inspired Oxygen 30 Oxygen Delivery Method Nasal Cannula Oxygen Flow Rate 0 Narrative Exam Narrative: GENERAL APPEARANCE: Elderly male, no acute distress and breathing comfortably on room air. SKIN: Inspection of the skin reveals scattered small ecchymoses an actinic keratosis. HEENT: Normocephalic, atraumatic. Pupils equally round and reactive. Oral thrush present. NECK: Supple and symmetric. In C-collar is noted above. There was no thyroid enlargement, and no tenderness, or masses were felt. CHEST: Normal AP diameter and normal contour without any kyphoscoliosis. LUNGS: Improved air movement. Bibasilar crackles improved at by a lateral lung bases. He had mild wheezing this morning which improved cough. CARDIOVASCULAR: Irregularly irregular rhythm with normal rate, no murmurs rubs or gallops appreciated. ABDOMEN: Soft, nondistended, nontender. MUSCULOSKELETAL: There was no tenderness or effusions noted. Muscle strength was unable to be assessed but tone is normal. EXTREMITIES: No cyanosis, clubbing. There is trace peripheral edema. NEUROLOGIC: Alert and oriented. Follows commands. Moving all extremities equally. Objective Labs Result Diagrams: 10/05/19 04:45 10/05/19 04:45 Labs: Laboratory Results - last 24 hr 10/05/19 10/05/19 10/05/19 04:45 04:45 04:45 WBC 11.0 RBC 4.02 L Hgb 12.4 L Hct 37.4 L MCV 93.2 MCH 30.9 MCHC 33.2 RDW 14.6 Plt Count 195 Neut % (Auto) 68.8 Lymph % (Auto) 15.8 L [place] % (Auto) 8.8 Eos % (Auto) 6.1 H Baso % (Auto) 0.5 Neut # (Auto) 7500 H Lymph # (Auto) 1700 [place] # (Auto) 1000 H Eos # (Auto) 700 H Baso # (Auto) 100 PT 96.0 H D INR 8.0 H* Sodium 141 Potassium 3.4 Chloride 95 L Carbon Dioxide 37 H BUN 48 H Creatinine 1.30 H Estimated GFR 52.7 L BUN/Creatinine Ratio 36.9 H Glucose 127 H Calcium 9.4 Phosphorus 2.9 Magnesium 2.0 Total Bilirubin Conjugated Bilirubin Unconjugated Bilirubin AST ALT Alkaline Phosphatase Total Protein Albumin Globulin Albumin/Globulin Ratio 10/05/19 07:42 WBC RBC Hgb Hct MCV MCH MCHC RDW Plt Count Neut % (Auto) Lymph % (Auto) [place] % (Auto) Eos % (Auto) Baso % (Auto) Neut # (Auto) Lymph # (Auto) [place] # (Auto) Eos # (Auto) Baso # (Auto) PT INR Sodium Potassium Chloride Carbon Dioxide BUN Creatinine Estimated GFR BUN/Creatinine Ratio Glucose Calcium Phosphorus Magnesium Total Bilirubin 1.2 Conjugated Bilirubin 0.0 Unconjugated Bilirubin 0.8 AST 28 ALT 12 Alkaline Phosphatase 83 Total Protein 7.3 Albumin 3.8 Globulin 3.5 Albumin/Globulin Ratio 1.1 Assessment & Plan Assessment & Plan narrative: Sreekanth Erickson is an 84-year-old male with past medical history of hypertension, hyperlipidemia, AFib on Coumadin, gout, recent subdural hemorrhage and cervical fusion complicated by swallow difficulties who was admitted to the ICU with acute hypercarbic and hypoxemic respiratory failure, likely multifactorial in origin. He is now currently off of BiPAP therapy, and doing well. His INR remains elevated for unclear reasons, potentially interaction with his antibiotics, which were changed today. He is pending evaluations with PT and OT. 1. Acute hypoxemic and hypercarbic respiratory failure, present on admission, improved-likely superimposed on chronic hypercarbic respiratory failure given metabolic alkalosis on admission labs and an improvement with his pCO2 of 56. History sleep apnea without use of CPAP, and high degree of hypercarbia. He could have aspirated based on is apparent history and with his leukocytosis of 15. Further, he likely has a component of decompensated systolic heart failure given his echocardiogram results. -appreciate respiratory therapy assistance, patient should be on CPAP therapy when asleep and at night. -covered initially for aspiration with Zosyn, however given his elevated INR will change to Augmentin today. -patient was diuresed with IV Lasix, he received 1 dose of IV Lasix 40 mg today. Will transition to p.o. 40 mg daily tomorrow. -[employer] evaluation appreciated, patient on a dysphagia diet currently. 2. Respiratory acidosis with compensated metabolic alkalosis, resolved. -management as noted above in 1. 3. Supratherapeutic INR, chronic, present on admission - reports difficulty managing INR and Coumadin recently. It is unclear why he is on Coumadin specifically for AFib as he has been having increasing difficulty controlling his INR. -consult dietitian -monitor INR daily, continue to hold warfarin until in therapeutic range. 4. Heart failure with reduced ejection fraction, acuity unclear, present on admission -ultrasound on hospital day 1 revealed decompensated systolic heart failure with an ejection fraction of 30-35%, much declined from previous echocardiogram in November of 2014. -continue Lasix as noted above -maximize metoprolol for afib as he is still intermittently tachycardic, however this is improving today. -patient reports allergy to lisinopril, consider small dose losartan prior to discharge. 5. Paroxysmal atrial fibrillation, chronic -continue home metoprolol -patient is currently on standing IV metoprolol with adequate rate control currently -INR is supratherapeutic as noted above, continue to follow INR daily until within range and then re-dose likely at 5 mg daily. 6. BPH, with obstruction -Velasquez catheter was placed with greater than 1 L output initially -continue Velasquez catheter and resume home medications. - UA negative for infection. - attempt trial of void tomorrow. 7. Oral thrush, present on admission -oral care, continue oral anti fungal 8. Gout, chronic, stable -continue home Allopurinol 9. History of recent subdural hemorrhage and cervical fusion -continue C-collar for now -continue to monitor neuro status and stat CT head if necessary -swallow evaluation as noted above, on modified dysphagia diet. 10. Severe Acute protein calorie malnutrition - r/t swallowing difficulty as complication of cervical fusion aeb pt lost 13% weight in 3 mo (severe), pt NG tube removed recently, unclear whether or not pt can swallow safely. - appreciate dietary recommendations. DVT: on coumadin, supratherapeutic level currently Code: Full, patient elects spouse as surrogate decision maker. Dispo: Remains medically active, INR still supratherapeutic. Pending physical and occupational therapy evaluations.
--- NOTE | 2019-10-05 13:11 | PC.NURSE ---
Addendum entered by Shena Starr R.N. 10/05/19 15:39: updated on POC, plan for PT eval and d/c likely tomorrow or next day. Addendum entered by Shena Starr R.N. 10/05/19 14:05: CPAP trial to happen tonight. Original Note: Am shift Pt is A/o x3, able to follow commands and answer appropriately. at bedside, Swallow eval done at breakfast, pt did well. Pills given 1 at a time, tolerating well. Pt using CPAP while sleeping. Spo2 93% on 2L while awake with NC.Dim t/o. Velasquez Patent. Tele in place variable Afib rate 100's, not sustaining > 120's. No PRN Metoprolol given.
[2019-10-05] MEDS: ATORVASTATIN 20 MG TABLET 80 MG PO (16:29)
--- NOTE | 2019-10-05 16:43 | PT-IP ANOTE ---
Pt's current INR= 8.0 and PT = 96.0 which significantly beyonds PT guidelines to mobilize pt. Will put pt on hold for PT until further lab result. Will attempt PT evaluation again tomorrow morning.
--- NOTE | 2019-10-05 16:53 | OT.IP.TRT ---
Current Diagnoses Acute respiratory failure with hypoxia (10/02/19) Occupational Therapy Treatment Note M3 OT- IP Subjective and Pain Start: 10/05/19 16:48 Freq: Status: Active Protocol: Document 10/05/19 16:49 [facility] (Rec: 10/05/19 16:53 [facility] [id number]) OT- Subjective Occupational Therapy Visit Type Type Administrative Note Notes Pt's INR at 8.0 , nursing states number may be potentially inflated due to antibiotics pt is on and just got discontinued. Therefore hold OT eval until new reading tomorrow for INR.
[2019-10-05] MEDS: AMOXICILLIN/CLAV 875/125 MG 1 TAB PO (20:31)
[2019-10-05] MEDS: SENNOSIDES 8.6 MG TABLET 17.2 MG PO (20:32)
[2019-10-06] VITALS (12 sets, daily range): BP systolic 104–135; BP diastolic 51–80; PULSE 87–138; RESP 10–39; TEMP 30.9–37.1; O2SAT 89–98
[2019-10-06 05:31] LABS: Add Manual Diff / Slide Review NO; Basophils Absolute Auto 0 /uL (0-100); Basophils Percent Auto 0.4 % (0-2); Eosinophils Absolute Auto 700 /uL (0-450); Eosinophils Percent Auto 6.7 % (2-4); Hematocrit 36.9 % (41-53); Hemoglobin 12.2 g/dL (13.5-17.5); Lymphocytes Absolute Auto 1700 /uL (1100-4500); Lymphocytes Percent Auto 16.6 % (25-40); Mean Corpuscular HGB Conc 33.1 % (30-36); Mean Corpuscular Hemoglobin 31.2 PG (26-34); Mean Corpuscular Volume 94.3 fL (80-100); Monocytes Absolute Auto 1000 /uL (0-900); Monocytes Percent Auto 9.5 % (3-14); Neutrophils Absolute Auto 7100 /uL (1500-7000); Neutrophils Percent Auto 66.8 % (50-75); Platelet Count 181 X10^3/uL (150-400); Red Blood Cell Count 3.92 X10^6/uL (4.5-5.9); Red Cell Distribution Width 14.7 % (11.6-14.8); White Blood Cell Count 10.6 X10^3/uL (4.5-11.0)
[2019-10-06 05:41] LABS: BUN Creatinine Ratio 40.8 (6-22); Blood Urea Nitrogen 53 mg/dL (9-20); Calcium 9.8 mg/dL (8.4-10.2); Chloride 97 mmol/L (98-107); Estimated Glomerular Filt Rate 52.7 mL/min (>60); Glucose 148 mg/dL (80-110); HEMOLYSIS < 15 (0-50); Potassium 4.1 mmol/L (3.4-5.1); Prothrombin Time 61.4 SECONDS (10.1-12.7); Sodium 144 mmol/L (137-145)
[2019-10-06 05:43] LABS: INR 5.2 (0.9-1.3)
[2019-10-06 06:03] LABS: Carbon Dioxide 40 mmol/L (22-32)
--- NOTE | 2019-10-06 06:21 | PC.NURSE ---
Has stayed on CPAP through night at 40%, HR has mainly been A-fib rvr rates 110's to 130's in bursts. Urine was more bloody at midnight, now a etienne tea colored with some old clots.
[2019-10-06] MEDS: NYSTATIN POWDER 15GM 1 APPLIC TOP ×2 (09:00→20:28)
[2019-10-06] MEDS: GABAPENTIN 300 MG CAPSULE PO ×2 (09:00→20:28)
[2019-10-06] MEDS: FUROSEMIDE 40 MG TABLET PO (09:00)
[2019-10-06] MEDS: METOPROLOL ER 50 MG TABLET PO (09:01)
[2019-10-06] MEDS: POLYETHYLENE GLYCOL 3350 17 GM POWD.PACK PO (09:01)
[2019-10-06] MEDS: TAMSULOSIN 0.4 MG CAPSULE 0.8 MG PO (09:01)
[2019-10-06] MEDS: FOLIC ACID 1 MG TABLET PO (09:01)
[2019-10-06] MEDS: ALLOPURINOL 300 MG TABLET PO (09:02)
[2019-10-06] MEDS: AMOXICILLIN/CLAV 875/125 MG 1 TAB PO ×2 (09:03→20:27)
[2019-10-06] MEDS: CLOTRIMAZOLE TROCHE 10 MG PO ×3 (09:04→19:24)
[2019-10-06] MEDS: METOPROLOL TARTRATE 5 MG/5 ML INJ IV (10:51)
[2019-10-06] MEDS: METOPROLOL ER 50 MG TABLET 100 MG PO ×2 (14:00→20:27)
[2019-10-06] MEDS: FLEETS ENEMA 1 EACH PR (14:06)
--- NOTE | 2019-10-06 14:43 | PC.NURSE ---
AO x3 with some forgetfulness. Using call light and making needs known with clear speech. Pt was up to the chair from breakfast time until 1400. HR has sustained 100-130s over the course of the day despite PO and IV metoprolol. Notified Dr. Torres and received/clarified orders to increase metoprolol to home dose. Pt has been on RA while awake with sats 90-94% at rest. Pt is tachypneic with shallow respirations at rate between 20s-30s. Tachypnea is noted to be increased with HR elevations. Pt will require bipap HS and plan is to work on qualifying for trilogy for home use. Pt's biggest complaint is constipation. He is unable to tolerate taste of prune juice. He is open to trying alternative medications to help with constipation. Spoke with Dr. Torres and received orders to administer enema.
--- NOTE | 2019-10-06 15:38 | PC.NURSE ---
pt was incontenent of BM in bed and had a huge BM in the commode .pt was sitting in the commode for half an hour and complain of light headed RN was notified.BP was normal
--- NOTE | 2019-10-06 15:49 | PC.NURSE ---
Addendum entered by Marylin Camacho R.N. 10/06/19 17:29: 1700- Patient states he is tired and wants to rest. Declined dinner for now. Placed on Bipap will monitor. Original Note: 1530- Patient had a 8 beat run of V-tach rate 150. Heart rate remains high between 110-140. Respirations are 30 or above at rest. OT and PT declined based on elevated heart rate, respiratory rate. Will monitor.
--- NOTE | 2019-10-06 15:50 | PT-IP ANOTE ---
Checked on patient twice, first time requiring attendance of nursing. Second time, informed by lead RN that he has just been put back to bed. His HR and respiration rates are elevated. Recommend to hold for today.
--- NOTE | 2019-10-06 16:21 | P.PN_ITS ---
Subjective Subjective Date Patient Seen: 10/06/19 Interval history: The patient is an 84-year-old male admitted to the hospital with acute hypercarbic respiratory failure. Overall he feels significantly improved today. Patient typically takes metoprolol 100 mg b.i.d. at home. His dose here in the hospital has been 50 mg. He developed rapid atrial fibrillation today. Heart rate in the 130s. He also had a 10 beat run of V-tach. The patient is in a C-collar. He has no complaints of pain. He was seen and evaluated by respiratory therapy and they are planning for a trilogy for him at discharge. Of note the patient has not had a BM in about 1 week. Exam Vital Signs (past 8 hours): - 10/06/19 09:01 10/06/19 12:15 10/06/19 14:00 Temperature 98.6 F Pulse Rate 138 H 115 H 130 H Respiratory Rate 28 H Blood Pressure 112/51 L 104/80 Pulse Oximetry 92 Fraction of Inspired Oxygen 0.30 Oxygen Delivery Method Room Air Oxygen Flow Rate 0 Narrative Exam Narrative: Pleasant gentleman resting comfortably HEENT: Patient in a C-collar, he is awake alert and appropriate Lungs: Decreased breath sounds Cardiac exam: Tachycardic irregularly irregular normal S1-S2 Abdomen: Soft nontender nondistended Extremities: No edema Objective Labs Result Diagrams: 10/06/19 05:05 10/06/19 05:05 Labs: Laboratory Results - last 24 hr 10/06/19 10/06/19 10/06/19 05:05 05:05 05:05 WBC 10.6 RBC 3.92 L Hgb 12.2 L Hct 36.9 L MCV 94.3 MCH 31.2 MCHC 33.1 RDW 14.7 Plt Count 181 Neut % (Auto) 66.8 Lymph % (Auto) 16.6 L [place] % (Auto) 9.5 Eos % (Auto) 6.7 H Baso % (Auto) 0.4 Neut # (Auto) 7100 H Lymph # (Auto) 1700 [place] # (Auto) 1000 H Eos # (Auto) 700 H Baso # (Auto) 0 PT 61.4 H D INR 5.2 H* Sodium 144 Potassium 4.1 Chloride 97 L Carbon Dioxide 40 H* BUN 53 H Creatinine 1.30 H Estimated GFR 52.7 L BUN/Creatinine Ratio 40.8 H Glucose 148 H Calcium 9.8 Assessment & Plan Assessment & Plan narrative: Impression 1. Acute hypercapnic hypoxic respiratory failure, present on admission. Patient has underlying obstructive sleep apnea. However bedside PFTs demonstrate suggestion of significant obstructive lung disease. The patient qualifies for trilogy. He will be placed on BiPAP here in the hospital. Will arrange for outpatient trilogy at discharge. The patient is more awake and alert today. 2. Paroxysmal atrial fibrillation, now with a rapid ventricular response rate. Suspect increased heart rate related to discontinuation of his usual home medication. The patient will be placed back on his usual metoprolol 100 b.i.d.. Will control his rate with IV Lopressor until he is back on his usual home dose. Heart rate improved from 130s to 105. Patient has no evidence of chest pain. Will continue to monitor closely. 3. Congestive heart failure, acute, secondary to systolic dysfunction, ejection fraction 30-35%. Will continue IV Lasix to improve heart failure and hypoxemia. 4. Supratherapeutic INR, INR was 8, now down to 5, improved ox Zosyn, will continue current antibiotics. 5. BPH with urinary retention continue Velasquez cath 6. Recent subdural hematoma, with cervical fusion, patient is still in a neck brace which we will continue. 7. Severe protein calorie malnutrition, will continue to encourage oral intake.
--- NOTE | 2019-10-06 17:38 | OT.IP.TRT ---
Current Diagnoses Acute respiratory failure with hypoxia (10/02/19) Occupational Therapy Treatment Note M3 OT- IP Subjective and Pain Start: 10/05/19 16:48 Freq: Status: Active Protocol: Document 10/06/19 17:37 [facility] (Rec: 10/06/19 17:38 [facility] [id number]) OT- Subjective Occupational Therapy Visit Type Type Administrative Note Notes Attempted to see pt for OT services. Pt having BM upon first attempt and with resting HR of 125 and respirations at 30 upon second attempt. Will hold today and continue to follow.
[2019-10-06] MEDS: ATORVASTATIN 20 MG TABLET 80 MG PO (19:24)
[2019-10-06] MEDS: SENNOSIDES 8.6 MG TABLET 17.2 MG PO (20:27)
[2019-10-07] VITALS (10 sets, daily range): BP systolic 105–144; BP diastolic 55–70; PULSE 90–124; RESP 10–33; TEMP 30–37.1; O2SAT 92–96
[2019-10-07] MEDS: FUROSEMIDE 40 MG TABLET PO (08:41)
[2019-10-07] MEDS: TAMSULOSIN 0.4 MG CAPSULE 0.8 MG PO (08:41)
[2019-10-07] MEDS: METOPROLOL ER 50 MG TABLET 100 MG PO ×2 (08:41→21:01)
[2019-10-07] MEDS: GABAPENTIN 300 MG CAPSULE PO ×2 (08:41→20:59)
[2019-10-07] MEDS: FOLIC ACID 1 MG TABLET PO (08:41)
[2019-10-07] MEDS: POLYETHYLENE GLYCOL 3350 17 GM POWD.PACK PO (08:42)
[2019-10-07] MEDS: CLOTRIMAZOLE TROCHE 10 MG PO ×4 (08:43→20:59)
[2019-10-07] MEDS: AMOXICILLIN/CLAV 875/125 MG 1 TAB PO ×2 (08:43→20:59)
[2019-10-07] MEDS: ALLOPURINOL 300 MG TABLET PO (08:45)
[2019-10-07] MEDS: NYSTATIN POWDER 15GM 1 APPLIC TOP ×2 (08:49→21:00)
[2019-10-07 12:17] LABS: Fractionated Inspired Oxygen 0.21; HCO3 ABG 42 mmol/L (22-26); Oxygen Saturation ABG 94 % (95-100); PCO2 ABG 56.1 mmHg (35-45); PO2 ABG 69 mmHg (80-100); TCO2 ABG 43 mmol/L (21-31); pH ABG 7.48 (7.35-7.45)
--- NOTE | 2019-10-07 12:22 | PM.PN.1 ---
Subjective Subjective Date Patient Seen: 10/07/19 Interval history: Patient is an 84-year-old male who was admitted to the hospital with acute hypoxemic hypercapnic respiratory failure. He also was found to have congestive heart failure with an ejection fraction 30-35%, atrial fibrillation with a rapid ventricular response rate. The patient has been suffering from thrush for some time. This has affected his ability to eat resulting in acute severe protein calorie malnutrition. The patient is sitting up to a chair today. He is eating. He does not have any complaints about shortness of breath or pain. He has his Velasquez catheter in place. His heart rate has continued to be difficult to control but is improved over the past day. Patient has tolerated BiPAP at night. His ABG has improved. His hypercapnia is resolved. Hypoxia improved. Patient will be fitted for trilogy and will be discharged home with trilogy most likely tomorrow. Exam Vital Signs (past 8 hours): - 10/07/19 08:00 Temperature 98.3 F Pulse Rate 91 H Respiratory Rate 21 Pulse Oximetry 96 Fraction of Inspired Oxygen 30 Oxygen Delivery Method Room Air Oxygen Flow Rate 0 Narrative Exam Narrative: Pleasant male resting comfortably in no obvious distress HEENT: Cervical collar in place Lungs: Decreased breath sounds but clear Cardiac exam: Tachycardic irregularly irregular normal S1-S2 Abdomen: Soft nontender nondistended Extremities: No edema Objective Labs Result Diagrams: 10/06/19 05:05 10/06/19 05:05 Labs: Laboratory Results - last 24 hr 10/07/19 12:00 ABG pH 7.48 H ABG pCO2 56.1 H ABG pO2 69 L ABG HCO3 42 H ABG Total CO2 43 H ABG O2 Saturation 94 L ABG Base Excess 18.0 H FiO2 0.21 Assessment & Plan Assessment & Plan narrative: Impression 1. Acute hypercapnic hypoxic respiratory failure, present on admission -patient with longstanding history of obstructive sleep apnea, according to his he discontinued CPAP many years ago. The patient may have underlying COPD as well which has not been treated. -continue with BiPAP at night, patient is being evaluated for trilogy at discharge -the patient has been diuresed which has improved his respiratory failure as well -patient has underlying COPD which will be treated with nebulizers as well 2. Acute decompensated congestive heart failure with reduced ejection fraction -echo confirms an ejection fraction of 30-35% which is worse than previous. Suspect untreated long-term CPAP has impacted his congestive heart failure -patient has responded to diuresis well. Overall improved 3. Atrial fibrillation, chronic, with a rapid ventricular response rate -patient is on his usual home dose of metoprolol 100 b.i.d.. Heart rate is still somewhat elevated. May need to consider the addition of calcium channel priscilla if his rate is not controlled 4. Elevated INR -will continue to follow protime daily Coumadin on hold until INR is less than 3 5. BPH with bladder outlet obstruction -patient had 1 L of urine out with placement of a Velasquez catheter in the ED. -he remains on tamsulosin -will attempt to remove catheter today to determine whether bladder outlet obstruction has improved 6. Oral and esophageal candidiasis -continue Carafate, will adjust to 4 times daily will continue a Zoll therapy as well 7. Gout Continue allopurinol 8. Recent subdural hematoma, status post cervical fusion, continue cervical cough -patient has improved significantly from surgical treatment will continue cervical Collar is recommended 9. Acute severe protein calorie malnutrition -given the patient's difficulty postoperatively in addition to oral and esophageal candidiasis his ability to eat has been compromised. He is now on a regular diet and improving significantly For today will discontinue Velasquez catheter, will continue with physical therapy, anticipate discharge home with triple tomorrow.
--- NOTE | 2019-10-07 12:43 | PT.IIE ---
Current Diagnoses Acute respiratory failure with hypoxia (10/02/19) Medical History (Last Updated 10/02/19 @ 13:35 by Ayad Buenrostro RN) Abdominal bruit (Acute) Afib (Acute) Back pain (Acute) Bladder cancer (Acute) Bradycardia (Acute) CAD (coronary artery disease) (Acute) Cardiomyopathy (Acute) Constipation (Chronic) Degenerative joint disease (Acute) Epistaxis (Acute) Gout (Acute) History of subdural hematoma (Acute) Hyperlipidemia (Acute) Hyperuricemia (Acute) Inguinal hernia (Acute) Myositis (Acute) Obstructive sleep apnea (Acute) Polyneuropathy (Acute) Thoracic spondylosis without myelopathy (Acute) Tremor of right hand (Chronic) Umbilical hernia (Acute) UTI (urinary tract infection) (Acute) Varicose veins of both lower extremities (Acute) Venous stasis ulcer (Acute) Physical Therapy Inpatient Evaluation/Re-Eval M1 PT/OT-IP Prior Functional Status Start: 10/05/19 16:48 Freq: NEEDED Status: Active Protocol: Document 10/07/19 11:49 AW (Rec: 10/07/19 12:42 AW [id number]) Medical Review Prior Functional Status Medical History Reviewed Yes Diet/Fluid Consistency NPO Communication WNL Mobility and Gait Pt was treated for subdural hemhorrage in June 2019. While at [facility], cervical stenosis was identified and treated operatively. At discharge, pt spent 19 days at [facility] for rehab and was then re-admitted to [facility] for further medical management. Pt has been back home since 08/28. Since that time, pt has used a 4WW at all times. Pt and spouse report an ambulation distance of about 25 feet with the 4WW. Prior to June, pt was modified independent for all mobilities with 4WW at home and a SPC in the community. Activities of Daily Living and IADL's Pt reports need for his 's help with some dressing tasks and standby assist for showers. Prior Functional Level (Other details) Don has been receiving home health services through [facility] and has been very pleased with that team. Social History Household Members spouse Living Arrangements House Number of Floors (Floors) One Floor Number of Stairs To Enter/Railing? Ramped entry is available, but pt tended to use an entry with 2 steps no railing Home Environment Standard Height Toilet,Walk in Shower Home Equipment Front Wheel Walker,Four Wheel Walker,Quad Cane,Manual Wheelchair,Bedside Commode, Raised Toilet Seat w/Armrests, Shower Seat with Backrest Additional Social History Comment Pt lives with his who provides assistance. He reports two falls in June but does not recall other falls within the past year. M2 PT-IP Current Condition Start: 10/05/19 16:43 Freq: NEEDED Status: Active Protocol: Document 10/07/19 11:49 AW (Rec: 10/07/19 12:42 AW [id number]) Physical Therapy Current Condition Current Condition Evaluation Date 10/07/19 Treatment Diagnosis acute hypercarbic respiratory failure Onset Date 10/02/19 Weight Bearing Status Weight Bearing Status Full Weight Bearing M3 PT-IP Subjective Start: 10/05/19 16:43 Freq: NEEDED Status: Active Protocol: Document 10/07/19 11:49 AW (Rec: 10/07/19 12:42 AW [id number]) Subjective Physical Therapy Visit Type Type Initial Evaluation Visit Start Time 10:42 Visit Stop Time 11:19 Total Visit Minutes 37 Notes Pt's spouse present for second half of evaluation. Number of MOLD CLEANER Visits 0 Physical Therapy Visit Comments Patient Comments I'm feeling so much better since I had a BM yesterday. Patient Goals Pt wants to get stronger and be able to go home Therapy Pain Assessment Pain When Pain Assessed During Mobility Pain Present Pain Present Denied Pain M4 PT-IP Mobility and Gait Start: 10/05/19 16:43 Freq: NEEDED Status: Active Protocol: Document 10/07/19 11:49 AW (Rec: 10/07/19 12:42 AW [id number]) PT-Transfer Assessment Sit to and From Stand Sit to and from Stand Minimal Assistance,Moderate Assistance,1 Person Assistance ,Use of Upper Extremities Equipment Transfer Assistive Device Gait Belt,Front Wheeled Walker Orthotic/Prosthetic Devices or Brace: No Transfers Transfer Destination Chair Transfer Technique Forward/Backward Scoot Transfer Ability Level of Assist Minimal Assistance Comments Mobility Comments Pt was sitting in the chair when therapist entered the room. Sit to stand was completed with FWW and min to mod assist. Pt had difficulty with knee extension, leaving the right hand lagging on the chair arm and requiring cues/ manual facilitation to extend the right knee and bring the right hand up to the walker. Pt was able to bear weight (L> R) and to shift weight, but stood only 30 seconds before his knees buckled and he sat with poor eccentric control, requiring min assist. Second attempt to stand was similar. Pt was able to march in place, standing for ~30 seconds. With verbal cues, pt was able to use both hands on the chair arms to control descent. Pt performed all mobility on room air. SpO2 at rest was low to mid-90's. With standing activity, SpO2 dropped to low 80's. RR ranged from low 20's to 38. Gait Assessment Comments Gait Comments Unsafe to assess at this time with pt demonstrating poor strength on MMT and functionally in standing. Stair Climbing Assessment Comments Stair Climbing Comments Not assessed. PT-Balance Assessment Sitting Balance and Reactions Static Sitting Balance Ability Good Dynamic Sitting Balance Ability Good Standing Balance and Reactions Static Standing Balance Ability Poor Dynamic Standing Balance Ability Poor Device Used FWW M5 PT-IP Objective Assessments Start: 10/05/19 16:43 Freq: NEEDED Status: Active Protocol: Document 10/07/19 11:49 AW (Rec: 10/07/19 12:42 AW [id number]) Orientation Orientation/Cognition Level of Alertness Alert Orientation Name,Month,Place,Situation Language Function Ability No Deficits Noted Safety Awareness Understands Safety Issues Memory Description Short Term Impaired Comments Pt's report of recent mobility sharply conflicted with his 's account. Gross Range of Motion Upper Extremity ROM Assessment Within Functional Limits Lower Extremity ROM Assessment Bilaterally Impaired Strength Upper Extremity Strength Assessment Bilaterally Impaired Shoulder flexion 4-/5 Lower Extremity Strength Assessment Bilaterally Impaired Hip R flexion 3+/5; L 4/5 Knee R ext 4/5; R flexion 3+/5; L 4 /5 Ankle B DF 3+/5 Coordination Assessment Gross Coordination Gross Coordination WNL Sensation Assessment Sensation Gross Sensation WNL Comments Sensation Comments No deficits on exam, but pt reports bilateral neuropathy affecting feet and legs M6 PT-IP Treatment Start: 10/05/19 16:43 Freq: NEEDED Status: Active Protocol: Document 10/07/19 11:49 AW (Rec: 10/07/19 12:42 AW [id number]) Physical Therapy Treatment Education Education Provided Precautions,Safety Other Treatments Other Treatment Performed Discussed PT plan of care and safe use of FWW with pt and spouse. M7 PT-IP Assessment and Plan Start: 10/05/19 16:43 Freq: NEEDED Status: Active Protocol: Document 10/07/19 11:49 AW (Rec: 10/07/19 12:42 AW [id number]) PT Summary Assessment and Plan Potential Rehabilitation Potential Good Status of Condition at Evaluation Evolving Summary Impairments ROM,Strength,Balance,Sensation ,Bed Mobility,Transfers,Gait, Activity Tolerance Assessment Summary Sreekanth is an 84 yo man with a complicated recent medical history including subdural hemorrhage and operatively- managed cervical stenosis with stays at [facility], SNF rehab, and [facility]. He has been home with home health since 08/28/19 and was doing well until recent decline. Pt was ambulatory with 4WW for about 25 feet and gaining strength with PT. He now presents with decreased strength (RLE more affected than LLE), poor standing tolerance, and respiratory distress with standing activity on room air. If discharge is imminent, PT recommends SNF rehab before return to home. Depending on progress with acute PT, pt may be appropriate to discharge back to home with resumption of home health services. Will continue to assess. Goals Bed Mobility Goal Standby Assistance Transfer Goal Standby Assistance,Front Wheeled Walker,Four Wheeled Walker Gait Goal Standby Assistance,Front Wheel Walker,Four Wheel Walker Gait Distance 25 feet Days to Meet Goals 10 Frequency of Treatment Frequency Of Treatment Once a Day Treatment Plan Physical Therapy Treatment Plan Bed Mobility Training,Transfer Training,Gait Training, Therapeutic Exercise,Balance Retraining,Discharge Planning, Neuromuscular Re-ed Other Recommendations and Next Treatment re-assess standing tolerance, Focus monitor vitals, attempt gait if vitals stable Recommendations To Nursing Amount of Assist Needed 1 Person Assist Discharge Recommendations PT Discharge Recommendations Home with Assistance,Home Health,SNF Rehab Other Discharge Recommendations SNF rehab vs home with resumed HH
--- NOTE | 2019-10-07 14:05 | OT.IP.EVAL ---
Current Diagnoses Acute respiratory failure with hypoxia (10/02/19) Past Medical History (Last Updated 10/02/19 @ 13:35 by Ayad Buenrostro RN) Abdominal bruit (Acute) Afib (Acute) Back pain (Acute) Bladder cancer (Acute) Bradycardia (Acute) CAD (coronary artery disease) (Acute) Cardiomyopathy (Acute) Constipation (Chronic) Degenerative joint disease (Acute) Epistaxis (Acute) Gout (Acute) History of subdural hematoma (Acute) Hyperlipidemia (Acute) Hyperuricemia (Acute) Inguinal hernia (Acute) Myositis (Acute) Obstructive sleep apnea (Acute) Polyneuropathy (Acute) Thoracic spondylosis without myelopathy (Acute) Tremor of right hand (Chronic) Umbilical hernia (Acute) UTI (urinary tract infection) (Acute) Varicose veins of both lower extremities (Acute) Venous stasis ulcer (Acute) Occupational Therapy Inpatient Evaluation/Re-Eval M1 PT/OT-IP Prior Functional Status Start: 10/05/19 16:48 Freq: NEEDED Status: Active Protocol: Document 10/07/19 17:22 CGR (Rec: 10/07/19 17:38 CGR [id number]) Medical Review Prior Functional Status Medical History Reviewed Yes Diet/Fluid Consistency NPO Communication WNL Mobility and Gait Pt was treated for subdural hemhorrage in June 2019. While at [facility], cervical stenosis was identified and treated operatively. At discharge, pt spent [address] [facility] for rehab and was then re-admitted to [facility] for further medical management. Pt has been back home since 08/28. Since that time, pt has used a 4WW at all times. Pt and spouse report an ambulation distance of about 25 feet with the 4WW. Prior to June, pt was modified independent for all mobilities with 4WW at home and a SPC in the community. Activities of Daily Living and IADL's Pt reports need for his 's help with some dressing tasks and standby assist for showers. Prior Functional Level (Other details) Don has been receiving home health services through [facility] and has been very pleased with that team. Social History Household Members spouse Living Arrangements House Number of Floors (Floors) One Floor Number of Stairs To Enter/Railing? Ramped entry is available, but pt tended to use an entry with 2 steps no railing Home Environment Standard Height Toilet,Walk in Shower Home Equipment Front Wheel Walker,Four Wheel Walker,Quad Cane,Manual Wheelchair,Bedside Commode, Raised Toilet Seat w/Armrests, Shower Seat with Backrest Employment Status Retired Additional Social History Comment Pt lives with his who provides assistance. He reports two falls in June but does not recall other falls within the past year. M2 OT-IP Current Condition Start: 10/05/19 16:48 Freq: Status: Active Protocol: Document 10/07/19 17:22 CGR (Rec: 10/07/19 17:38 CGR [id number]) Occupational Therapy Current Condition Current Condition Evaluation Date 10/07/19 Treatment Diagnosis SOB with significant recent medical hx. see note. Diagnosis Onset Date 10/02/19 Post Operative Precautions Cervical Spine Precautions Rigid Collar,No Heavy Lifting, Log Roll M3 OT- IP Subjective and Pain Start: 10/05/19 16:48 Freq: Status: Active Protocol: Document 10/07/19 17:22 CGR (Rec: 10/07/19 17:38 CGR [id number]) OT- Subjective Occupational Therapy Visit Type Type Initial Evaluation Visit Start Time 13:45 Visit Stop Time 14:05 Total Visit Minutes 20 Notes Pt getting back to bed after BM and sitting in chair all day. Occupational Therapy Visit Comments Patient Comments I am very tired. M4 OT- IP ADL's Start: 10/05/19 16:48 Freq: Status: Active Protocol: Document 10/07/19 17:22 CGR (Rec: 10/07/19 17:38 CGR [id number]) OT [id number] Comments OT Self-Feeding Comments Not meal time OT ADL-Grooming Comments OT Grooming Comments Declined, stated too fatigued. OT ADL-Oral Care Comments Oral Care Comments Declined, stated too fatigued. OT ADL-Dressing General Eval Lower Body Dressing Ability Maximum Assistance Comments OT Dressing Comments for brief OT ADL-Toileting General Evaluation Toileting Ability Total Assistance Areas Needing Assistance Manage Clothing,Perform Perineal Hygiene Devices Toileting Assistive Devices Commode Comments OT Toileting Comments Pt had BM seated on BSC. Total assist for brief management and back pericare. OT ADL-Bathing Comments OT Bathing Comments not performed in this session. M5 OT- IP IADL's Start: 10/05/19 16:48 Freq: Status: Active Protocol: Document 10/07/19 17:22 CGR (Rec: 10/07/19 17:38 CGR [id number]) OT-Instrumental Activities of Daily Living Deficits IADL Deficits Identified Deficits Home Safety Awareness Awareness of Need for Assistance at Home Decreased Awareness Ability to Problem Solve Emergency Able to Problem Solve Situations M6 OT- IP Functional Cognition Start: 10/05/19 16:48 Freq: Status: Active Protocol: Document 10/07/19 17:22 CGR (Rec: 10/07/19 17:38 CGR [id number]) Cognitive Factors Limiting Selfcare Function Cognitive Ability Level of Alertness Alert Patient Orientation Name,Age,Birthday,Month,Date, Year,Day of Week,Place, Situation Attention Span Ability Capable of Focused Attention, Capable of Sustained Attention Ability to Follow Commands Able to Follow One Step Commands Cognitive Comments Cognitive Assessment Comments Further cog assessment needed OT- Vision and Hearing OT- Hearing Assessment OT- Hearing Assessment WFL OT- Vision Assessment Vision History Cataracts Visual Acuity Glasses For Reading Visual Attentiveness WFL Occular Pursuits WFL Visual Convergence WFL Visual Poon WFL Vision Assessment Comments noted right upper peripherial vision with limitations M7 OT- IP Mobility and Balance Start: 10/05/19 16:48 Freq: Status: Active Protocol: Document 10/07/19 17:22 CGR (Rec: 10/07/19 17:38 CGR [id number]) OT- Bed Mobility Assessment Rolling Type of Rolling Roll to Left Level of Assistance Minimal Assistance Sit to Supine Sit to Supine Assist Moderate Assistance OT-Transfer Assessment Sit to and From Stand Sit to and from Stand Moderate Assistance,1 Person Assistance Transfers Transfer Ability Minimal Assistance,1 Person Assistance Technique Transfer Destination Bed,Bedside Commode Transfer Technique Stand Step Pivot Devices Transfer Assistive Devices Gait Belt,Front Wheeled Walker Comments Mobility Comments Pt unable to fully extend legs in standing. Forward posture noted with flexed knees. OT- Balance Assessment Sitting Balance and Reactions Static Sitting Balance Ability Fair Dynamic Sitting Balance Ability Poor M8 OT- IP Objective Assessments Start: 10/05/19 16:48 Freq: Status: Active Protocol: Document 10/07/19 17:22 CGR (Rec: 10/07/19 17:38 CGR [id number]) OT Gross Range of Motion Upper Extremity Range of Motion Assessment Bilaterally Impaired ROM Impairments B shld pain free ROM 0-45 OT Strength Comments Strength Comments grossly 4-/5, noted weakness to L arm 3+/5 OT- Coordination Assessment Upper Extremity Finger to Nose Test Within Functional Limits Finger Tapping Test Within Functional Limits OT-Muscle Tone Assessment Muscle Tone WNL Yes OT Sensation Assessment Edema Edema Absent M9 OT- IP Assessment and Plan Start: 10/05/19 16:48 Freq: Status: Active Protocol: Document 10/07/19 17:22 CGR (Rec: 10/07/19 17:38 CGR [id number]) OT Summary Assessment and Plan Potential Rehabilitation Potential Good Analytic Complexity at Evaluation Moderate Summary OT Impairments Pain,Range of Motion,Strength, Balance,Functional Mobility, Self-Feeding,Grooming,Dressing ,Toileting,Bathing,Toilet Transfers,Shower Transfers Progress Towards Goals Slow Progress due to Medical Issues Assessment Summary Pt presents as a moderate complexity evaluation. In jun pt had a subdural hematoma requiring hospitalization. While hospitalized, testing revealed the need for a cervical sx. Pt had difficulty with swallowing s/p sx requiring NG tube placmenet and transfered to a SNF. Pt had returned home and was continuing to improve till recently when he was admitted with SOB. Pt currently presents as fairly debilitated requiring mod a for sit to stand off BSC on this date. Pt will beneift from OT services to address ADLs, functional mobility, endurnace, and strength. Pt will likely benefit from another SNF stay upon discharge. Recommendation at this time is discharge to SNF. Goals Self-Feeding Goal Independent Grooming Goal Independent Dressing Goal Independent Toileting Goal Independent Bathing Goal Independent Toilet Transfer Goal Independent Shower Transfer Goal Independent Days to Meet Goals 15 Frequency of Treatment Frequency Of Treatment Once a Day Treatment Plan OT Treatment Plan ADL Training,Functional Mobility,Therapeutic Exercises ,Patient/Family Education, Discharge Planning Other Treatment Recommendations and Next ADLs seated (or standing if Treatment Focus able) Discharge Recommendations OT Discharge Recommendations SNF Rehab Home Equipment Needs GB in bathroom.
[2019-10-07] MEDS: METOPROLOL TARTRATE 5 MG/5 ML INJ IV (14:12)
--- NOTE | 2019-10-07 14:28 | PC.NURSE ---
Pt HR sustaining 120s-130 A fib after being transferred back to bed from chair. Pt placed back on bipap due to tachypnea RR 30s and sats 88% on RA. HR remains elevated after resting for 5 minutes. Pt reports fatigue and would like to take a nap. Administered IV metoprolol. Post administration, pt HR has reduced to 105-110s, Afib. Pt resting comfortably in bed on bipap. at bedside.
[2019-10-07 15:15] LABS: BUN Creatinine Ratio 44.6 (6-22); Blood Urea Nitrogen 58 mg/dL (9-20); Calcium 10.1 mg/dL (8.4-10.2); Chloride 94 mmol/L (98-107); Estimated Glomerular Filt Rate 52.7 mL/min (>60); Glucose 178 mg/dL (80-110); HEMOLYSIS < 15 (0-50); Potassium 3.9 mmol/L (3.4-5.1); Sodium 145 mmol/L (137-145)
[2019-10-07 15:16] LABS: INR 2.8 (0.9-1.3); Prothrombin Time 32.6 SECONDS (10.1-12.7)
[2019-10-07 15:21] LABS: Carbon Dioxide 39 mmol/L (22-32)
[2019-10-07] MEDS: WARFARIN 3 MG TABLET PO (18:20)
[2019-10-07] MEDS: ATORVASTATIN 20 MG TABLET 80 MG PO (18:20)
[2019-10-07] MEDS: SENNOSIDES 8.6 MG TABLET 17.2 MG PO (21:03)
[2019-10-08] VITALS (7 sets, daily range): BP systolic 98–104; BP diastolic 52–61; PULSE 84–107; RESP 10–30; TEMP 30.1–36.9; O2SAT 90–98
[2019-10-08 04:58] LABS: Add Manual Diff / Slide Review NO; Basophils Absolute Auto 100 /uL (0-100); Basophils Percent Auto 0.7 % (0-2); Eosinophils Absolute Auto 900 /uL (0-450); Eosinophils Percent Auto 6.2 % (2-4); Hematocrit 35.8 % (41-53); Hemoglobin 11.8 g/dL (13.5-17.5); Lymphocytes Absolute Auto 1600 /uL (1100-4500); Lymphocytes Percent Auto 11.8 % (25-40); Mean Corpuscular HGB Conc 32.8 % (30-36); Mean Corpuscular Hemoglobin 30.9 PG (26-34); Mean Corpuscular Volume 94.1 fL (80-100); Monocytes Absolute Auto 900 /uL (0-900); Monocytes Percent Auto 6.6 % (3-14); Neutrophils Absolute Auto 10300 /uL (1500-7000); Neutrophils Percent Auto 74.7 % (50-75); Platelet Count 172 X10^3/uL (150-400); Red Blood Cell Count 3.81 X10^6/uL (4.5-5.9); Red Cell Distribution Width 14.6 % (11.6-14.8); White Blood Cell Count 13.7 X10^3/uL (4.5-11.0)
[2019-10-08 05:02] LABS: INR 2.7 (0.9-1.3); Prothrombin Time 31.4 SECONDS (10.1-12.7)
[2019-10-08 05:07] LABS: BUN Creatinine Ratio 46.7 (6-22); Blood Urea Nitrogen 56 mg/dL (9-20); Calcium 9.8 mg/dL (8.4-10.2); Chloride 94 mmol/L (98-107); Estimated Glomerular Filt Rate 57.8 mL/min (>60); Glucose 125 mg/dL (80-110); HEMOLYSIS < 15 (0-50); Potassium 4.1 mmol/L (3.4-5.1); Sodium 144 mmol/L (137-145)
[2019-10-08 05:15] LABS: Carbon Dioxide 43 mmol/L (22-32)
--- NOTE | 2019-10-08 08:40 | PC.NURSE ---
0800- Pt requesting urinal to void. Noted pt with moderate amount of incontinent yellow urine to brief. Assisted pt with urinal in bed. Pt only with only scant yellow dribbling. Bladder scan performed showing 451 ML. Assisted pt to stand. Pt voided 100 ML. PVR shows 347 ML. Will address with hospitalist on rounds and monitor urine output.
[2019-10-08] MEDS: TAMSULOSIN 0.4 MG CAPSULE 0.8 MG PO (08:46)
[2019-10-08] MEDS: FUROSEMIDE 40 MG TABLET PO (08:47)
[2019-10-08] MEDS: FOLIC ACID 1 MG TABLET PO (08:47)
[2019-10-08] MEDS: GABAPENTIN 300 MG CAPSULE PO (08:47)
[2019-10-08] MEDS: ALLOPURINOL 300 MG TABLET PO (08:47)
[2019-10-08] MEDS: POLYETHYLENE GLYCOL 3350 17 GM POWD.PACK PO (08:47)
[2019-10-08] MEDS: AMOXICILLIN/CLAV 875/125 MG 1 TAB PO (08:47)
[2019-10-08] MEDS: CLOTRIMAZOLE TROCHE 10 MG PO (08:47)
[2019-10-08] MEDS: METOPROLOL ER 50 MG TABLET 100 MG PO (08:47)
[2019-10-08] MEDS: NYSTATIN POWDER 15GM 1 APPLIC TOP (08:50)
--- NOTE | 2019-10-08 10:54 | OT.IP.TRT ---
Current Diagnoses Acute respiratory failure with hypoxia (10/02/19) Occupational Therapy Treatment Note M2 OT-IP Current Condition Start: 10/05/19 16:48 Freq: Status: Active Protocol: Document 10/07/19 17:22 CGR (Rec: 10/07/19 17:38 CGR [id number]) Occupational Therapy Current Condition Current Condition Evaluation Date 10/07/19 Treatment Diagnosis SOB with significant recent medical hx. see note. Diagnosis Onset Date 10/02/19 Post Operative Precautions Cervical Spine Precautions Rigid Collar,No Heavy Lifting, Log Roll M3 OT- IP Subjective and Pain Start: 10/05/19 16:48 Freq: Status: Active Protocol: Document 10/08/19 12:52 [facility] (Rec: 10/08/19 13:01 [facility] [id number]) OT- Subjective Occupational Therapy Visit Type Type Treatment Note Visit Start Time 10:14 Visit Stop Time 10:54 Total Visit Minutes 40 Occupational Therapy Visit Comments Patient Comments Pt wanting to shower. Patient/Caregiver Goals Pt states wants to go home , however states is anxious about him coming home and would rather that he goes to skilled rehab prior to going home. OT Pain Assessment Pain When Pain Assessed At Rest Pain Present Pain Present Denied Pain M4 OT- IP ADL's Start: 10/05/19 16:48 Freq: Status: Active Protocol: Document 10/08/19 12:52 [facility] (Rec: 10/08/19 13:01 [facility] [id number]) OT [id number] Comments OT Self-Feeding Comments Not meal time OT ADL-Dressing General Eval Lower Body Dressing Ability Maximum Assistance Areas Needing Assistance Underpants/Brief,Socks Comments OT Dressing Comments Pt due to fatigue and not able to bend over to reach his feet. OT ADL-Toileting General Evaluation Toileting Ability Total Assistance Areas Needing Assistance Manage Clothing,Perform Perineal Hygiene OT ADL-Bathing Bathing Type Bathing Type Shower General Evaluation Bathing Ability Maximal Assistance Areas Needing Assistance Retrieving/Setting Up Items, Wash/Dry Back,Wash/Dry Perineal Area,Wash/Dry Lower Extremities Devices Bathing Equipment Hand Held Shower Sprayer, Shower Chair without Arms,Grab Bars Comments OT Bathing Comments Pt needing MODA to help to stand and MAX A for LB and pericare needs. Pt needing RICHARD to help for balance while standing and assist to hygiene needs. Pt having to use shower chair as getting tired. M5 OT- IP IADL's Start: 10/05/19 16:48 Freq: Status: Active Protocol: Document 10/07/19 17:22 CGR (Rec: 10/07/19 17:38 CGR [id number]) OT-Instrumental Activities of Daily Living Deficits IADL Deficits Identified Deficits Home Safety Awareness Awareness of Need for Assistance at Home Decreased Awareness Ability to Problem Solve Emergency Able to Problem Solve Situations M6 OT- IP Functional Cognition Start: 10/05/19 16:48 Freq: Status: Active Protocol: Document 10/08/19 12:52 [facility] (Rec: 10/08/19 13:01 [facility] [id number]) Cognitive Factors Limiting Selfcare Function Cognitive Comments Cognitive Assessment Comments Pt able to follow commands for showering needs. M7 OT- IP Mobility and Balance Start: 10/05/19 16:48 Freq: Status: Active Protocol: Document 10/08/19 12:52 [facility] (Rec: 10/08/19 13:01 [facility] [id number]) OT-Transfer Assessment Sit to and From Stand Sit to and from Stand Moderate Assistance,1 Person Assistance Transfers Transfer Ability Minimal Assistance,1 Person Assistance Technique Transfer Destination Chair,Shower Stall Devices Transfer Assistive Devices Gait Belt,Front Wheeled Walker Comments Mobility Comments Pt due to weakness needing MODA to come to stand and vc to push up from the armrests of the recliner to stand. Pt needing education to kepp FWW closer to him as letting it get too far ahead of him and needing therapist to help guide the FWW. M8 OT- IP Objective Assessments Start: 10/05/19 16:48 Freq: Status: Active Protocol: Document 10/07/19 17:22 CGR (Rec: 10/07/19 17:38 [facility] [id number]) OT Gross Range of Motion Upper Extremity Range of Motion Assessment Bilaterally Impaired ROM Impairments B shld pain free ROM 0-45 OT Strength Comments Strength Comments grossly 4-/5, noted weakness to L arm 3+/5 OT- Coordination Assessment Upper Extremity Finger to Nose Test Within Functional Limits Finger Tapping Test Within Functional Limits OT-Muscle Tone Assessment Muscle Tone WNL Yes OT Sensation Assessment Edema Edema Absent M9 OT- IP Assessment and Plan Start: 10/05/19 16:48 Freq: Status: Active Protocol: Document 10/08/19 12:52 [facility] (Rec: 10/08/19 13:01 [facility] [id number]) OT Summary Assessment and Plan Potential Rehabilitation Potential Good Analytic Complexity at Evaluation Moderate Summary OT Impairments Pain,Range of Motion,Strength, Balance,Functional Mobility, Self-Feeding,Grooming,Dressing ,Toileting,Bathing,Toilet Transfers,Shower Transfers Progress Towards Goals Progressing Toward Goals,Slow Progress due to Activity Tolerance Assessment Summary At this time pt still needing extensive assist for ADl needs and MODA to stand due to weakness and decreased safety awareness. Pt would benefit from skilled rehab at this time as having decreased activity tolerance, independence with ADl's and functional mobility and feels not able to provide enough assist at this time. Goals Self-Feeding Goal Independent Grooming Goal Independent Dressing Goal Independent Toileting Goal Independent Bathing Goal Independent Toilet Transfer Goal Independent Shower Transfer Goal Independent Days to Meet Goals 14 Frequency of Treatment Frequency Of Treatment Once a Day Treatment Plan OT Treatment Plan ADL Training,Functional Mobility,Therapeutic Exercises ,Patient/Family Education, Discharge Planning Discharge Recommendations OT Discharge Recommendations SNF Rehab Home Equipment Needs GB in bathroom.
--- NOTE | 2019-10-08 11:04 | PT.IPTN ---
Current Diagnoses Acute respiratory failure with hypoxia (10/02/19) Physical Therapy Treatment Note M2 PT-IP Current Condition Start: 10/05/19 16:43 Freq: NEEDED Status: Active Protocol: Document 10/07/19 11:49 AW (Rec: 10/07/19 12:42 AW [id number]) Physical Therapy Current Condition Current Condition Evaluation Date 10/07/19 Treatment Diagnosis acute hypercarbic respiratory failure Onset Date 10/02/19 Weight Bearing Status Weight Bearing Status Full Weight Bearing M3 PT-IP Subjective Start: 10/05/19 16:43 Freq: NEEDED Status: Active Protocol: Document 10/08/19 10:51 AW (Rec: 10/08/19 11:04 AW [id number]) Subjective Physical Therapy Visit Type Type Treatment Note Visit Start Time 09:25 Visit Stop Time 10:05 Total Visit Minutes 40 Number of THERAPY AIDE Visits 0 Physical Therapy Visit Comments Patient Comments Pt willing to participate with PT Therapy Pain Assessment Pain When Pain Assessed During Mobility Pain Present Pain Present Denied Pain M4 PT-IP Mobility and Gait Start: 10/05/19 16:43 Freq: NEEDED Status: Active Protocol: Document 10/08/19 10:51 AW (Rec: 10/08/19 11:04 AW [id number]) PT-Bed Mobility Assessment Rolling Type of Rolling Log Rolling,Roll to Right,Roll to Left Level of Assist Contact Guard Assistance Supine to Sit Supine to Sit Minimal Assistance Sit to Supine Sit to Supine Contact Guard Assistance Scooting Scooting to Edge of Bed Standby Assistance PT-Transfer Assessment Sit to and From Stand Sit to and from Stand Moderate Assistance,1 Person Assistance Equipment Transfer Assistive Device Gait Belt,Front Wheeled Walker Orthotic/Prosthetic Devices or Brace: No Transfers Transfer Destination Bed,Chair,Bedside Commode Transfer Technique stand step pivot to bed, commode; ambulated with FWW to chair Transfer Ability Level of Assist Minimal Assistance,1 Person Assistance Comments Mobility Comments Pt sitting in chair on entry to room. He completed sit to stand with FWW min to mod assist and max cues for knee extension with pt unable to fully extend knees. Standing tolerance on first attempt was 30 seconds. On second attempt , pt was able to stand 3 minutes, including marching in place for 60 seconds without need for break. Pt transferred to bed where he required CGA for sit to supine and min assist to right his trunk for supine to sit. All bed mobility performed with log roll technique. Pt then transferred to [facility] min assist with FWW. He was dependent for pericare while standing with FWW and then transferred back to chair min assist and verbal cues for direction. Gait Assessment Gait Gait Assistance Required: Minimum Assistance Distance (Feet) 10 Assistive Devices Assistive Device Front Wheeled Walker Orthotic/Prosthetic Devices or Brace: No Gait Deviations General Gait Pattern Decreased Stride Length, Decreased Feet Clearance, Flexed Trunk,Narrow Based Gait Factors Limiting Gait Function Factors Limiting Gait Function Decreased Activity Tolerance, Decreased Sensation,Decreased Strength,Poor Balance,Poor Safety Awareness Comments Gait Comments Pt ambulated to door and back to chair using FWW. Min assist x 1 required due to unsteadiness and significant sway. Stair Climbing Assessment Comments Stair Climbing Comments Not assessed. M5 PT-IP Objective Assessments Start: 10/05/19 16:43 Freq: NEEDED Status: Active Protocol: Document 10/07/19 11:49 AW (Rec: 10/07/19 12:42 AW [id number]) Orientation Orientation/Cognition Level of Alertness Alert Orientation Name,Month,Place,Situation Language Function Ability No Deficits Noted Safety Awareness Understands Safety Issues Memory Description Short Term Impaired Comments Pt's report of recent mobility sharply conflicted with his 's account. Gross Range of Motion Upper Extremity ROM Assessment Within Functional Limits Lower Extremity ROM Assessment Bilaterally Impaired Strength Upper Extremity Strength Assessment Bilaterally Impaired Shoulder flexion 4-/5 Lower Extremity Strength Assessment Bilaterally Impaired Hip R flexion 3+/5; L 4/5 Knee R ext 4/5; R flexion 3+/5; L 4 /5 Ankle B DF 3+/5 Coordination Assessment Gross Coordination Gross Coordination WNL Sensation Assessment Sensation Gross Sensation WNL Comments Sensation Comments No deficits on exam, but pt reports bilateral neuropathy affecting feet and legs M6 PT-IP Treatment Start: 10/05/19 16:43 Freq: NEEDED Status: Active Protocol: Document 10/08/19 10:51 AW (Rec: 10/08/19 11:04 AW [id number]) Physical Therapy Treatment Education Education Provided Precautions,Safety M7 PT-IP Assessment and Plan Start: 10/05/19 16:43 Freq: NEEDED Status: Active Protocol: Document 10/08/19 10:51 AW (Rec: 10/08/19 11:04 AW [id number]) PT Summary Assessment and Plan Summary Impairments ROM,Strength,Balance,Sensation ,Bed Mobility,Transfers,Gait, Activity Tolerance Progress Towards Goals Slow Progress due to Activity Tolerance Assessment Summary Sreekanth was able to ambulate 10 feet today with min assist. He continues to demonstrate general LE weakness evident in his inability to achieve terminal knee extension in weightbearing. Vitals were more stable today with HR not exceeding 120 bpm, RR in the high 20's. Pt requires SNF rehab to promote safe return to home environment. Goals Bed Mobility Goal Standby Assistance Transfer Goal Standby Assistance,Front Wheeled Walker,Four Wheeled Walker Gait Goal Standby Assistance,Front Wheel Walker,Four Wheel Walker Gait Distance 25 feet Days to Meet Goals 10 Treatment Plan Physical Therapy Treatment Plan Bed Mobility Training,Transfer Training,Gait Training, Therapeutic Exercise,Balance Retraining,Discharge Planning, Neuromuscular Re-ed Recommendations To Nursing Amount of Assist Needed 1 Person Assist Discharge Recommendations PT Discharge Recommendations SNF Rehab Equipment Needed for Home Before defer to rehab setting Discharge
--- NOTE | 2019-10-08 11:15 | CM.DPC ---
Addendum entered by Idania Perkins R.N. 10/08/19 15:55: Received signed orders from Dr. Nelson. Faxed over PASSR, med sheets, to [facility]. Faxed discharge summary at a later time when completed. here at the hospital. Changed pear picker time to 1530. Addendum entered by Idania Perkins R.N. 10/08/19 13:21: Received authorization from [facility], spoke to Ave. Awaiting orders to be signed. Updated Eva at [facility], and they can pick him up at approximately 1500. PASSR completed, pending orders. Addendum entered by Idania Perkins R.N. 10/08/19 12:16: Attempting to get patient authorization through [facility]. Spoke to Lei protective services case worker. She is requesting notes from today and yesterday, stated that she did not receive latest orders. Continuing to attempt getting patient into [facility] today Original Note: DCP Cont: Patient notes some weakness, concerned he is too weak to go home. Monique Guzmán, protective services case worker supervisor paper coating had spoken to patient and he mentioned, [facility] would be ok. [facility] is now [facility]. Called Eva in admissions and asked if she has availability. She stated they can accept him today. Patient is [facility], and spoke to Aura protective services case worker at [facility] and let him know that patient can be discharged today, but needs residential. Let her know facility of choice is [facility], formally [facility]. Aura at [facility] is reviewing P.T. notes, and will get back to protective services case worker. Updated Dr. Nelson, hospitalist, who will go ahead and place discharge order. P: DCP will continue to follow up with [facility], and Eva at [facility], and work on getting discharge today. Idania Perkins, RN/Communication Electronic Technician
--- NOTE | 2019-10-08 12:01 | ST.IPDYTX ---
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 He recalled the results of the MBS. Treatment Liquids Trialed Leota Solids Trialed Dysphagia Mechanical Administration Type Controlled Cup Sip,Self- Feeding Oral Strategies Upright at 90 degrees,Double Swallow Pharyngeal Strategies Double Swallow Treatment Activities Pt reported th have eaten 100% of breakfast today. Pt in bedside chair with nectar thick liquids on bedside table . Pt would like to upgrade liquids; however with compromised respiratory system , recommended that he gets stronger before upgrade. Pt indicated he understood. Reviewed need for double swallow and the supraglottic swallow technique. Practiced both x3. Pt scheduled for possible DC today to either home with or the [facility] ([facility]). Recommend continued ST at DC to increase linguapharyngeal strength to decrease risk for aspiration. Assessment Patient Response to Treatment Excellent Rehab Potential Good Assessment of Improvement Excellent understanding of and implementation of recommendations. Diet Recommendations Comment Start with nectar liquid with monitoring tolerance Liquids Order Leota Diet Order Dysphagia Mechanical Medication Recommendations Whole,One at a Time Aspiration Precautions Recommended Precautions Upright at 90 Degrees,Small Bites/Sips,Supraglottic Swallow,Liquids from Cup Treatment Plan Placement Recommendation after Discharge Long Term Facility,Home with Home Health Appropriate for Continued Therapy Yes Therapy Recommendations Dysphagia management including strengthening exercises and advancing diet when appropriate. Dysphagia Goals Don will safely swallow the least restrictive diet to meet his nutrition and hydration needs without s/sx aspiration. Family education re: safe swallow strategies, aspiration precautions and swallow exercises Don will participate in therapy targeting safe swallow strategies, aspiration precautions and swallow exercises.
--- NOTE | 2019-10-08 13:50 | PC.NURSE ---
Addendum entered by Ayad Buenrostro R.N. 10/08/19 15:27: Pt transferred from chair to w/c for d/c. Pt left with all belongings in no acute distress with [facility] transport staff member. Original Note: Called report to Delores admission nurse at [facility]. /pt updated on plan of care.
--- NOTE | 2019-10-08 15:03 | P.DS_ITS ---
History of Present Illness History of Present Illness Date Patient Seen: 10/02/19 Chief complaint: SOB, post feeding tube removal Narrative: Written by Dr. Martin: Sreekanth Erickson is an 84-year-old male with past medical history of hypertension, hyperlipidemia, AFib on Coumadin, gout, recent subdural hemorrhage in June of 2019 for which she was seen here and then transferred to [place]. His subdural hematoma has been stable however further workup during that admission in [place] showed cervical stenosis and he underwent a cervical fusion also in June of 2019. Since then he has had a complex postoperative course. He presented today with difficulty breathing. This is been going on for the past few weeks according to the patient and his . The shortness of breath has been present over the past month but over the past week at his been worsening. The asked him to come to the emergency room a few days ago but the patient was reluctant to do so. He ultimately agreed this morning when he told her he could not breathe at all. The patient complains of pain all over and shortness of breath, he denies chest pain or palpitations. The reports that he has a CPAP at home that he does not use. His postoperative course included a stay at rehab and a prolonged nasogastric tube for swallowing difficulties He has developed thrush as well, for which he has been on antifungals recently. According to the , he has had different providers say that he can swallow and others that say that he can't. In the emergency room the patient was normotensive, afebrile, but tachypneic. ABG she has showed a pCO2 of 87 and the patient was put on BiPAP. He improved slightly to 77, but was transferred to the ICU for hypercarbic respiratory failure and continued BiPAP therapy. Other labs were remarkable for an INR 5.7, BNP of 560, and procalcitonin of 0.12, and troponin of 0.014. In the ICU his belly was moderately distended, bladder scan was done which showed greater than 1 L of urine, and a Velasquez catheter was placed with greater than 1 L output. UA was negative for infection. Chest x-ray showed a slightly increased vascularity bilaterally, but no focal infiltrates. EKG shows AFib with a rate of 103, his precordial leads appear unchanged however there is a morphology changes QRS complex in the inferior leads of unclear significance. Discharge Providers Provider Date of admission: 10/02/19 10:43 Discharge Date: 10/08/19 Primary care physician: Martin Puente MD Consults: 10/02/19 08:44 Consult to Respiratory Therapy Evaluate & Treat Comment: Physician Instructions: Evaluate and treat 10/02/19 12:22 Consult to Respiratory Therapy Evaluate & Treat Comment: Physician Instructions: Evaluate and treat 10/02/19 14:58 Consult to Dietitian, Adult Routine Comment: Reason For Exam: recent illness, suspect malnutrition 10/02/19 15:31 Consult to Dietitian, Adult Routine Comment: Reason For Exam: assessed at risk 10/04/19 09:32 Consult to Speech Therapy Evaluate & Treat Comment: Physician Instructions: Evaluate and treat 10/05/19 14:24 Consult to Occupational Therapy Evaluate & Treat Comment: Physician Instructions: Evaluate and treat 10/05/19 14:25 Consult to Physical Therapy Evaluate & Treat Comment: Physician Instructions: Evaluate and Treat Discharge provider: Valentine Nelson DO Summary Hospital Course Discharge Diagnosis: 1. Acute likely on chronic hypercapnic and hypoxemic respiratory failure, secondary to COPD, present on admission. Acute portion resolved. 2. Decompensated congestive heart failure with reduced ejection fraction, present on admission. Resolved. 3. Acute aspiration pneumonia, present on admission. Resolved. 4. Chronic atrial fibrillation with RVR, present on admission. RVR resolved. 5. Supratherapeutic INR, present on admission. Resolved. 6. BPH with bladder outlet obstruction, chronic, present on admission. Stable. 7. Oral and esophageal candidiasis, present on admission. Resolved. 8. Gout, chronic, present on admission. Stable. 9. Recent subdural hematoma, status post cervical fusion, present on admission. Stable. 10. Acute severe protein calorie malnutrition, present on admission. Stable. 11. Constipation, chronic, present on admission. Stable. 12. Stage II pressure ulcerations on left buttock, present on admission. Acti ve. Hospital Course: Sreekanth Erickson is an 84-year-old male with past medical history significant for hypertension, hyperlipidemia, chronic atrial fibrillation on Coumadin, gout, recent subdural hemorrhage in June of 2019 for which she was seen here and then transferred to [place] status post cervical fusion who presented for shortness of breath. 1. Acute likely on chronic hypercapnic and hypoxemic respiratory failure, secondary to COPD, present on admission. Acute portion resolved. -The patient has underlying COPD, as well as, longstanding history of obstructive sleep apnea and according to his and he discontinued CPAP many years ago. -Continued diuresis as below which also improved respiratory failure. -Continued nebulizers as needed. -Consulted respiratory therapy for evaluation and treatment. Initial ABG performed demonstrated compensated respiratory acidosis with compensated metabolic alkalosis with pH 7.23, pCO2 87.5, HC03 37, FiO2 0.28 with SpO2 93%. Repeat ABG on BiPAP significantly improve and demonstrated pH 7.39, pCO2 57.4, PO2 104, HC03 35, on FiO2 30% with SpO2 98%. Continued BiPAP while sleeping or napping. Patient requires nocturnal and daytime noninvasive ventilator due to severity of COPD which is the primary causes of his chronic respiratory failure, BiPAP inefficient, and will need to be placed once he is [facility]. 2. Decompensated congestive heart failure with reduced ejection fraction, present on admission. Resolved. -Echocardiogram demonstrated decreased LV function with ejection fraction of 30- 35% which is worse than previous. Suspect untreated long-term SARINA has impacted his congestive heart failure. -Continued furosemide 40 mg daily. May need to adjust dose as outpatient. -Continued strict I&O and daily weights. Net -5.4 L. -Continue low-sodium < 2g daily and fluid-restricted diet 1.5 L. 3. Acute aspiration pneumonia, present on admission. Resolved. -Patient presented to the hospital with fever, hypoxia, shortness of breath. It was felt that this was likely related to aspiration pneumonia due to severity of difficulty with swallowing. He was initially treated with Zosyn which was swi tched to Augmentin to complete 6 day antibiotic course. He is no longer febrile, has had improved oxygenation, and lungs clear on physical exam. -Respiratory viral PCR negative. -Blood cultures x2 have no growth to date. 4. Chronic atrial fibrillation with RVR, present on admission. RVR resolved. -Continued metoprolol succinate 100 mg twice daily. Heart rate is still mildly elevated 90s to 100s. May need to consider titration up of beta-priscilla or addition of calcium channel priscilla in future. 5. Supratherapeutic INR, present on admission. Resolved. -Likely secondary to antifungal medications including fluconazole, posconazole, and clotrimazole. -Patient initially presented with INR of 5.7 and trended up to 8.0. INR now down to 2.7. -Restarted warfarin at 3.0 mg daily. Continued to monitor INR daily. Recommend close monitoring of INR and continued adjustment of warfarin dose. 6. BPH with bladder outlet obstruction, chronic, present on admission. Stable. -Patient had 1 L urinary retention with placement of a Velasquez catheter in the ED. -Continued tamsulosin 0.8 mg daily. -Removed Velasquez catheter and patient able to void without difficulty. Postvoid residual mildly elevated at 300 mL but shortly after he was able to void over 300 mL. 7. Oral and esophageal candidiasis, present on admission. Resolved. -Patient has been treated for greater than 2 weeks which should be sufficient. Patient has no exudate in oropharynx. Patient denies trouble or pain with swallowing. -Discontinued clotrimazole bernard. Continue to monitor closely for thrush and or difficulty swallowing with low threshold to restart clotrimazole bernard. 8. Gout, chronic, present on admission. Stable. -Continued allopurinol 300 mg daily. 9. Recent subdural hematoma, status post cervical fusion, present on admission. Stable. -Continued cervical collar and plan for outpatient follow-up at scheduled appointment on 10/23/2019 with orthopedic surgery at [facility]. 10. Acute severe protein calorie malnutrition, present on admission. Stable. -Given the patient's difficulty postoperatively, as well as, oral and esophageal candidiasis his ability to eat was severely compromised. He is now on a dysphagia mechanical diet with nectar thick liquids and improving significantly. -Consulted dietitian and appreciate her recommendations. 11. Constipation, chronic, present on admission. Stable. -Continued bowel regimen. 12. Stage II pressure ulcerations on left buttock, present on admission. Active. -Continued to offload with waffle pillow and frequent turning every 2 hours. -Continued to apply barrier cream to area. Exam Vital Signs (past 8 hours): - 10/08/19 08:00 10/08/19 11:59 Temperature 98.2 F 98.1 F Pulse Rate 103 H 107 H Respiratory Rate 22 23 Blood Pressure 101/52 L 98/53 L Pulse Oximetry 90 L 92 Fraction of Inspired Oxygen 25 Oxygen Delivery Method Room Air,BiPAP Oxygen Flow Rate 0 Narrative Exam Narrative: General: Elderly gentleman lying in chair and in no acute distress, well- developed, well-nourished, appropriately interactive. HEENT: Normocephalic, atraumatic. External ears without defect. Pupils equal, round, and reactive to light and accommodation. Anicteric sclerae, moist conjunctivae, and no lid lag. Oropharynx mildly erythematous without exudate and moist mucosa. Neck: Supple. C-collar in place. Cardiovascular: Irregularly irregular without murmurs, rubs, or gallops appreciated. Pulmonary: Clear to auscultation bilaterally without crackles, wheezes, or rhonchi. Normal respiratory effort with no use of accessory muscles. Abdomen: Soft, bowel sounds present, nontender, nondistended. No hepatosplenomegaly or masses appreciated. Extremities: No clubbing, cyanosis, or edema. Skin: Normal temperature, turgor, and texture; no rash, ulcers, or subcutaneous nodules appreciated. Neurological: Cranial nerves grossly intact. Psychiatric: Normal mood and affect. Alert and oriented to person, place, and time. Objective Labs Result Diagrams: 10/08/19 04:40 10/08/19 04:40 Labs: Laboratory Results - last 24 hr 10/07/19 10/07/19 10/08/19 14:36 14:36 04:40 WBC 13.7 H RBC 3.81 L Hgb 11.8 L Hct 35.8 L MCV 94.1 MCH 30.9 MCHC 32.8 RDW 14.6 Plt Count 172 Neut % (Auto) 74.7 Lymph % (Auto) 11.8 L [place] % (Auto) 6.6 Eos % (Auto) 6.2 H Baso % (Auto) 0.7 Neut # (Auto) 16343 H Lymph # (Auto) 1600 [place] # (Auto) 900 Eos # (Auto) 900 H Baso # (Auto) 100 PT 32.6 H D INR 2.8 H Sodium 145 Potassium 3.9 Chloride 94 L Carbon Dioxide 39 H BUN 58 H Creatinine 1.30 H Estimated GFR 52.7 L BUN/Creatinine Ratio 44.6 H Glucose 178 H Calcium 10.1 10/08/19 10/08/19 04:40 04:40 WBC RBC Hgb Hct MCV MCH MCHC RDW Plt Count Neut % (Auto) Lymph % (Auto) [place] % (Auto) Eos % (Auto) Baso % (Auto) Neut # (Auto) Lymph # (Auto) [place] # (Auto) Eos # (Auto) Baso # (Auto) PT 31.4 H INR 2.7 H Sodium 144 Potassium 4.1 Chloride 94 L Carbon Dioxide 43 H* BUN 56 H Creatinine 1.20 Estimated GFR 57.8 L BUN/Creatinine Ratio 46.7 H Glucose 125 H Calcium 9.8 Discharge Plan Discharge Plan Patient Disposition: SNF Transfer to: [facility] Under care of provider: director of physical security Discharge comment: Follow-up with orthopedic surgery as previously directed on 10/23 and Cardiology, Dr. Dean, at next available appt Discharge orders & Medications Prescriptions: New furosemide 40 mg Tablet 40 mg PO DAILY Qty: 30 RF: 0 polyethylene glycol 3350 17 gram Powder In Packet 17 gm PO DAILY Qty: 1 RF: 0 bisacodyl 10 mg Suppository 10 mg VA DAILY PRN (Reason: Constipation) Qty: 10 RF: 0 bisacodyl 5 mg Tablet,Delayed Release (Dr/Ec) 10 mg PO BID PRN (Reason: Constipation) Qty: 30 RF: 0 nystatin [Nystop] 100,000 unit/gram Powder 1 applic topical BID Qty: 15 RF: 0 Continued polyethylene glycol 3350 [Miralax] 119 GM powder 17 gm PO DAILY Qty: 0 RF: 0 gabapentin 300 mg Capsule 300 mg PO BID RF: 0 atorvastatin 80 mg Tablet 80 mg PO QPM RF: 0 metoprolol succinate 100 mg Tablet Extended Release 24 Hr 100 mg PO BID RF: 0 tamsulosin 0.4 mg Capsule 0.8 mg PO DAILY RF: 0 allopurinol 300 mg Tablet 300 mg PO DAILY RF: 0 trospium 60 mg Capsule,Extended Release 24hr 60 mg PO QAM RF: 0 ipratropium-albuterol 0.5 mg-3 mg(2.5 mg base)/3 mL Solution For Nebulization 3 ml INHALATION Q4H PRN (Reason: Shortness Of Breath) RF: 0 melatonin 3 mg Tablet 6 mg PO BEDTIME RF: 0 acetaminophen 500 mg Tablet 500 mg PO TID PRN (Reason: pain) RF: 0 Fleet Enema 19-7 gram/118 mL Enema 118 ml VA PRN PRN (Reason: Constipation) RF: 0 magnesium citrate Solution 300 ml PO DAILY PRN (Reason: Constipation) RF: 0 folic acid 1 mg Tablet 1 mg PO DAILY RF: 0 cholecalciferol (vitamin D3) [Vitamin D3] 1,000 unit Capsule 2,000 unit PO DAILY RF: 0 oxymetazoline [Afrin (oxymetazoline)] 0.05 % [place],Non-Aerosol 2 spray INTRANASAL DAILY PRN (Reason: Congestion) RF: 0 Bacid 1 billion cell- 250 mg Tablet 1 tab PO BID RF: 0 lidocaine 5 % adhesive patch,medicated 1 patch TOP DAILY Qty: 15 RF: 0 Changed warfarin 5 mg Tablet 3 mg PO SUMOTUTHFRSA Qty: 0 RF: 0 Discontinued clotrimazole 10 mg Bernrad 10 mg MUCOUS MEMBRANE 5XD RF: 0 nystatin 100,000 unit/mL Suspension 0 ml PO DIRECTED RF: 0 prednisone 20 mg Tablet 20 mg PO DAILY RF: 0 warfarin 5 mg Tablet 10 mg PO WE RF: 0 posaconazole [Noxafil] 200 mg/5 mL (40 mg/mL) Suspension 400 mg PO DAILY RF: 0 Follow up/Referrals: Wild Dean MD [Physician] - 2 Weeks Martin Puente MD [Primary Care Provider] - 2 Weeks Discharge Health Status Health Concerns: Continue frequent INR checks and adjust warfarin dose as necessary. Continue to monitor daily weights and routine CHF management. May need to adjust furosemide dose or discontinue. Pneumonia has been treated and yen esophagitis treatment completed. Monitor closely for thrush with low threshold to restart clotrimazole troches. Diet/Activity/Treatments Liquid consistency: [employer] Consistency Food texture: Soft Diet comment: Advance diet per speech therapy, 1.5 L fluid restriction, <2g sodium Activity: Activity as tolerated with forward wheeled walker and physical and occ upational therapy Oxygen: BiPAP 16/8 with 2L O2 autotitrate use all times while napping or sleeping Skin/Wound/Dressing Care Skin care: Sacral decub- Offloading pillow on buttocks, turn Q2, barrier cream [facility] Reason for rehabilitation: Recovery r/t decondition Rehab type: Physical therapy, Occupational therapy and Speech therapy Visit Report/Discharge Packet Instructions: DI for Heart Failure Discharge Data Primary Care Provider: Martin Puente Discharges patient from system. Discharge Date/Time: 10/08/19 15:29
== END 2019-10-08 15:29 | DRG 177 ==
LOC: ED 09:51 → AC 10:50 → ICU 10-03 14:14 → AC 10-08 08:32 → ICU 10-08 08:32
PROVIDERS: Internal Medicine; Nurse Practitioner Adult Health; Admitting Provider Internal Medicine; Emergency Provider Emergency Medicine; PCP Family Medicine; Visit Provider Internal Medicine
DX: J69.0 Pneumonitis due to inhalation of food and vomit (principal); I50.23 Acute on chronic systolic (congestive) heart failure; J96.01 Acute respiratory failure with hypoxia; J96.22 Acute and chronic respiratory failure with hypercapnia; E43 Unspecified severe protein-calorie malnutrition; E87.4 Mixed disorder of acid-base balance; B37.0 Candidal stomatitis; N13.8 Other obstructive and reflux uropathy; I47.2 Ventricular tachycardia; J44.0 Chronic obstructive pulmonary disease with (acute) lower respiratory infection; L89.152 Pressure ulcer of sacral region, stage 2; I11.0 Hypertensive heart disease with heart failure; I48.0 Paroxysmal atrial fibrillation; Z79.01 Long term (current) use of anticoagulants; G47.30 Sleep apnea, unspecified; N40.1 Benign prostatic hyperplasia with lower urinary tract symptoms; I25.10 Atherosclerotic heart disease of native coronary artery without angina pectoris; Z68.30 Body mass index [BMI] 30.0-30.9, adult; G47.33 Obstructive sleep apnea (adult) (pediatric); E78.5 Hyperlipidemia, unspecified; M10.9 Gout, unspecified; S06.5X9D Traumatic subdural hemorrhage with loss of consciousness of unspecified duration, subsequent encounter; Z85.51 Personal history of malignant neoplasm of bladder; Z98.1 Arthrodesis status; Z98.890 Other specified postprocedural states
CPT/HCPCS: 36415; 36600; 71045; 74230; 80048; 80053; 80076; 81001; 82550; 82553; 82805; 83605; 83735; 83880; 84100; 84145; 84443; 84484; 85025; 85610; 85730; 87040; 87633; 87797; 92526; 92610; 92611; 93005; 93010; 93306; 94010; 94660; 96365; 96368; 96375; 97116; 97163; 97166; 97530; 97535; 99282; 99291; J0696; J1940; J2543; J3480

== ENCOUNTER → 2019-10-24 11:23 | Outpatient (ROUT) | payer OTHER, SELFPAY ==
[2019-10-02 11:44] VITALS: BMI 32.7
[2019-10-08 04:26] VITALS: PULSE 91; O2SAT 98
[2019-10-08 06:25] VITALS: RESP 13
[2019-10-24 11:39] LABS: INR 1.3 (0.9-1.3); Prothrombin Time 15.2 SECONDS (10.1-12.7)
== END ==
PROVIDERS: PCP Family Medicine; Visit Provider Internal Medicine
DX: Z79.01 Long term (current) use of anticoagulants (principal)
CPT/HCPCS: 85610

== ENCOUNTER → 2019-10-27 20:05 | Outpatient (ROUT) | payer OTHER, SELFPAY ==
[2019-10-02 11:44] VITALS: BMI 32.7
[2019-10-08 04:26] VITALS: PULSE 91; O2SAT 98
[2019-10-08 06:25] VITALS: RESP 13
[2019-10-27 20:09] LABS: Bacteria Urine None Seen
[2019-10-27 20:11] LABS: Bilirubin Urine UA NEGATIVE (NEGATIVE); Glucose Urine UA NEGATIVE (Negative); Ketones Urine UA NEGATIVE (NEGATIVE); Leukocyte Esterase Urine UA TRACE (NEGATIVE); Nitrite Urine UA NEGATIVE (Negative); Occult Blood Urine UA 3+ (Negative); Protein Urine UA 3+ (Negative); Specific Gravity Urine UA 1.015 (1.000-1.035)
[2019-10-27 20:12] LABS: Appearance Urine UA CLOUDY; Color Urine UA Orange
[2019-10-27 20:15] LABS: Culture Indicated Urine Specimen Cultured; RBC Urine 30-100/HPF (0-5/HPF); Squamous Epithelial Cell Urine 1-5 /HPF (0-5/HPF); WBC Urine 10-30/HPF (0-5/HPF)
== END ==
PROVIDERS: PCP Family Medicine; Visit Provider Licensed Practical Nurse
DX: N39.0 Urinary tract infection, site not specified (principal)
CPT/HCPCS: 81001; 87077; 87086; 87185; 87186

== ENCOUNTER 2019-12-05 13:45 | Inpatient (IN) | payer OTHER, SELFPAY ==
[2019-10-02 11:44] VITALS: BMI 32.7
[2019-10-08 04:26] VITALS: PULSE 91; O2SAT 98
[2019-10-08 06:25] VITALS: RESP 13
[2019-12-05] VITALS (13 sets, daily range): BP systolic 85–127; BP diastolic 52–74; PULSE 86–120; RESP 20–30; TEMP 36.4–37; O2SAT 87–100; BMI 29.4
--- NOTE | 2019-12-05 13:55 | DI.RAD.S_ITS ---
PROCEDURE: XR CHEST 1V INDICATIONS: Shortness of breath TECHNIQUE: One view of the chest was acquired. COMPARISON: [facility], CR, XR CHEST 1V, 10/02/2019, 8:49. FINDINGS: Surgical changes and devices: Postoperative changes at the cervicothoracic junction are again evident. Lungs and pleura: Elevation of the right diaphragm is identified, similar to the prior study. There may be scar versus atelectasis at the right lung base. No new areas of pulmonary consolidation are evident. No large effusion or pneumothorax is evident. Mediastinum: Mediastinal contours appear normal. Heart size is is mildly enlarged. There is aortic atherosclerosis. Bones and chest wall: No suspicious bony lesions. Overlying soft tissues appear unremarkable. IMPRESSION: Cardiomegaly without overt heart failure. No definite pneumonia. Dictated by: Kevin Gomez M.D. on 12/05/2019 at 13:40 Approved by: Kevin Gomez M.D. on 12/05/2019 at 13:41
[2019-12-05 14:05] LABS: Add Manual Diff / Slide Review NO; Basophils Absolute Auto 100 /uL (0-100); Basophils Percent Auto 0.5 % (0-2); Eosinophils Absolute Auto 200 /uL (0-450); Eosinophils Percent Auto 1.5 % (2-4); Hematocrit 33.9 % (41-53); Hemoglobin 10.9 g/dL (13.5-17.5); Lymphocytes Absolute Auto 1500 /uL (1100-4500); Lymphocytes Percent Auto 11.8 % (25-40); Mean Corpuscular HGB Conc 32.2 % (30-36); Mean Corpuscular Hemoglobin 29.8 PG (26-34); Mean Corpuscular Volume 92.6 fL (80-100); Monocytes Absolute Auto 1000 /uL (0-900); Monocytes Percent Auto 7.5 % (3-14); Neutrophils Absolute Auto 10300 /uL (1500-7000); Neutrophils Percent Auto 78.7 % (50-75); Platelet Count 182 X10^3/uL (150-400); Red Blood Cell Count 3.66 X10^6/uL (4.5-5.9); Red Cell Distribution Width 16.6 % (11.6-14.8)
--- NOTE | 2019-12-05 14:08 | ED.GENADULT ---
HPI - General Adult General Chief complaint: Shortness of Breath/Dyspnea Stated complaint: difficulty breathing/swallow Time Seen by Provider: 12/05/19 13:53 Source: patient Mode of arrival: EMS Limitations: no limitations History of Present Illness HPI narrative: 84-year-old male with a history of atrial fibrillation. On Coumadin. Also has a history of heart failure. Last echocardiogram was September 2019 which showed ejection fraction of 30-35%. Also recently diagnosed with COPD. Uses 2 L of home oxygen at night on a regular basis. Was recently switched from Lasix to torsemide. His thinks that he is on 20 mg this. Has been at home for the past month. Over the past week has noticed increased dyspnea on exertion, productive cough, no fevers, shortness of breath, orthopnea. Patient also has had chronically problems swallowing. They attribute this to an NG tube that was placed. They do her follow-up with ENT but not to later this month. He does think that his swallowing has also worsened recently Related Data Home Medications Medication Instructions Recorded Confirmed polyethylene glycol 3350 [Miralax] 17 gm PO DAILY #0 07/15/17 10/02/19 gabapentin 300 mg PO BID 07/11/19 12/05/19 Bacid 1 tab PO BID 10/02/19 12/05/19 acetaminophen 500 mg PO TID PRN 10/02/19 12/05/19 allopurinol 300 mg PO DAILY 10/02/19 12/05/19 atorvastatin 80 mg PO QPM 10/02/19 12/05/19 folic acid 1 mg PO DAILY 10/02/19 10/02/19 ipratropium-albuterol 3 ml INHALATION Q4H PRN 10/02/19 10/02/19 magnesium citrate 300 ml PO DAILY PRN 10/02/19 10/02/19 melatonin 6 mg PO BEDTIME 10/02/19 10/02/19 metoprolol succinate 100 mg PO BID 10/02/19 12/05/19 oxymetazoline [Afrin 2 spray INTRANASAL DAILY PRN 10/02/19 10/02/19 (oxymetazoline)] tamsulosin 0.8 mg PO DAILY 10/02/19 12/05/19 trospium 60 mg PO QAM 10/02/19 12/05/19 torsemide 20 mg PO DAILY 12/05/19 12/05/19 Previous Rx's Medication Instructions Recorded lidocaine 1 patch TOP DAILY #15 each 06/09/19 nystatin [Nystop] 1 applic TOPICAL BID #15 g 10/08/19 polyethylene glycol 3350 17 gm PO DAILY #1 pkg 10/08/19 warfarin 3 mg PO SUMOTUTHFRSA #0 tab 10/08/19 Allergies Allergy/AdvReac Type Severity Reaction Status Date / Time lisinopril [LISINOPRIL] AdvReac Mild NAUSEA Verified 07/11/19 08:06 Review of Systems Constitutional Constitutional: Denies fever(s) and Denies headache(s) ENT Ears, Nose, Mouth, and Throat: Denies headache(s) Cardiovascular Cardiovascular: Denies chest pain, Reports dyspnea and Reports dyspnea on exertion Respiratory Respiratory: Reports cough, Reports excessive phlegm production, Denies pain on inspiration, Reports dyspnea and Reports dyspnea on exertion Gastrointestinal Gastrointestinal: Denies abdominal pain, Denies change in stool character, Denies nausea and Denies vomiting Genitourinary Genitourinary: Denies dysuria Musculoskeletal Musculoskeletal: Denies myalgias and Denies arthralgias Integumentary/Breasts Skin/Breast: Denies lesions and Denies rash Neurologic Neurologic: Denies behavioral changes, Denies confusion and Denies headache(s) Psychiatric Psychiatric: Denies behavioral changes and Denies confusion Hematologic/Lymphatic Comments: On Coumadin Allergic/Immunologic Allergic/Immunologic: Denies urticaria Patient History Medical History Abdominal bruit (Acute) Afib (Acute) Back pain (Acute) Bladder cancer (Acute) Bradycardia (Acute) CAD (coronary artery disease) (Acute) Cardiomyopathy (Acute) Constipation (Chronic) Degenerative joint disease (Acute) Epistaxis (Acute) Gout (Acute) History of subdural hematoma (Acute) Hyperlipidemia (Acute) Hyperuricemia (Acute) Inguinal hernia (Acute) Myositis (Acute) Obstructive sleep apnea (Acute) Polyneuropathy (Acute) Thoracic spondylosis without myelopathy (Acute) Tremor of right hand (Chronic) Umbilical hernia (Acute) UTI (urinary tract infection) (Acute) Varicose veins of both lower extremities (Acute) Venous stasis ulcer (Acute) Social History household members: spouse Smoking Status: Former smoker alcohol intake: never Smoking Status: Former smoker alcohol intake frequency: 0-2 drinks per day Substance Use Type: does not use Exam Initial Vital Signs Initial Vital Signs: Vital Signs Temperature 97.8 F 12/05/19 13:56 Pulse Rate 93 H 12/05/19 13:56 Respiratory Rate 30 H 12/05/19 13:56 Blood Pressure 93/54 L 12/05/19 13:56 Pulse Oximetry 87 L 12/05/19 13:56 Const General: cooperative, comfortable and well developed Limitations: mental status not altered HENIL Head: normal to inspection and normocephalic Mouth: No moist mucous membranes Resp Effort & Inspection: not labored and tachypneic Auscultation: clear to auscultation bilaterally Cardio Rate: tachycardic Rhythm: abnormal rhythm Pulses: radial pulses present GI Inspection: non-distended Palpation: soft Skin Lesions: no lesions Rashes: no rashes Neuro General: alert, awake and oriented x3 Cognition: normal cognition Speech: speech normal Extrem General: edema (Right lower extremity. This is not new) Psych Appearance: grossly normal and well kempt Scores GCS [place] coma scale eye opening: Spontaneous [place] coma scale verbal response: Orientated [place] coma scale motor response: Obey commands Mary coma scale total score: 15 Course Orders Ordered: ED Orders 12/05/19 13:55 XR chest 1V Stat 12/05/19 13:56 EKG-12 Lead Stat 12/05/19 13:58 Respiratory Panel (Film Array) Stat 12/05/19 14:00 Complete Blood Count AUTO DIFF Stat Comprehensive Metabolic Panel Stat Lipase Stat NT-proBNP (BNP-Adult 18+) Stat Partial Thromboplastin Time Stat Procalcitonin Stat Prothrombin Time INR Stat Troponin I Stat 12/05/19 14:16 Arterial Blood Gas Stat Sodium Chloride (Normal Saline 0.9%) 1,000 mls @ 500 mls/hr IV BOLUS ONE Stop: 12/05/19 16:00 Last Infusion: 12/05/19 14:56 Dose: 0 mls/hr Documented by: Admin: 12/05/19 14:20 Dose: 500 mls/hr Documented by: MARCE Discontinued Medications Furosemide (Lasix) 60 mg IV NOW ONE Stop: 12/05/19 14:43 Last Admin: 12/05/19 14:55 Dose: 60 mg Documented by: MARCE Vital Signs Vital signs: Vital Signs - 8 hr 12/05/19 13:56 12/05/19 14:01 12/05/19 14:24 Temperature 97.8 F Pulse Rate 93 H 93 H 102 H Respiratory Rate 30 H 25 H 24 Blood Pressure 93/54 L Blood Pressure [Left Arm] 96/53 L 87/53 L Pulse Oximetry 87 L 93 98 12/05/19 15:00 Temperature Pulse Rate 86 Respiratory Rate 24 Blood Pressure Blood Pressure [Left Arm] 90/52 L Pulse Oximetry 97 Medical Decision Making Medical Records Medical records reviewed: Yes I reviewed the patient's medical records. Lab Data Lab results reviewed: Yes I reviewed the patient's lab results. Result diagrams: 12/05/19 14:00 12/05/19 14:00 Labs: Lab Results 12/05/19 12/05/19 12/05/19 Range/Units 14:00 14:00 14:00 WBC 13.0 H (4.5-11.0) X10^3/uL RBC 3.66 L (4.5-5.9) X10^6/uL Hgb 10.9 L (13.5-17.5) g/dL Hct 33.9 L (41-53) % MCV 92.6 (80-100) fL MCH 29.8 (26-34) PG MCHC 32.2 (30-36) % RDW 16.6 H (11.6-14.8) % Plt Count 182 (150-400) X10^3/uL Neut % (Auto) 78.7 H (50-75) % Lymph % (Auto) 11.8 L (25-40) % [place] % (Auto) 7.5 (3-14) % Eos % (Auto) 1.5 L (2-4) % Baso % (Auto) 0.5 (0-2) % Neut # (Auto) 89128 H (6864-8590) /uL Lymph # (Auto) 1500 (2159-7352) /uL [place] # (Auto) 1000 H (0-900) /uL Eos # (Auto) 200 (0-450) /uL Baso # (Auto) 100 (0-100) /uL PT 36.2 H (10.1-12.7) SECONDS INR 3.2 H (0.9-1.3) APTT 36 D (26.4-36.2) SECONDS ABG pH (7.35-7.45) ABG pCO2 (35-45) mmHg ABG pO2 (80-100) mmHg ABG HCO3 (22-26) mmol/L ABG Total CO2 (21-31) mmol/L ABG O2 Saturation (95-100) % ABG Base Excess (-2-2) mmol/L FiO2 Sodium 141 (137-145) mmol/L Potassium 4.4 (3.4-5.1) mmol/L Chloride 96 L (98-107) mmol/L Carbon Dioxide 36 H (22-32) mmol/L BUN 61 H (9-20) mg/dL Creatinine 1.60 H (0.66-1.25) mg/dL Estimated GFR 41.5 L (>60) mL/min BUN/Creatinine Ratio 38.1 H (6-22) Glucose 135 H (80-110) mg/dL Calcium 10.0 (8.4-10.2) mg/dL Total Bilirubin 0.9 (0.2-1.3) mg/dL AST 24 (17-59) IU/L ALT 12 (<50) IU/L Alkaline Phosphatase 90 (38-126) U/L Troponin I < 0.012 (0.01-0.034) ng/mL NT-Pro-B Natriuret Pep 1360 H (<450) pg/mL Total Protein 8.0 (6.3-8.2) g/dL Albumin 4.0 (3.5-5.0) g/dL Globulin 4.0 (1.7-4.1) g/dL Albumin/Globulin Ratio 1.0 (1.0-2.8) Lipase 46 (23-300) U/L Procalcitonin (<0.5) ng/mL 12/05/19 12/05/19 Range/Units 14:00 14:16 WBC (4.5-11.0) X10^3/uL RBC (4.5-5.9) X10^6/uL Hgb (13.5-17.5) g/dL Hct (41-53) % MCV (80-100) fL MCH (26-34) PG MCHC (30-36) % RDW (11.6-14.8) % Plt Count (150-400) X10^3/uL Neut % (Auto) (50-75) % Lymph % (Auto) (25-40) % [place] % (Auto) (3-14) % Eos % (Auto) (2-4) % Baso % (Auto) (0-2) % Neut # (Auto) (0590-4410) /uL Lymph # (Auto) (8006-6509) /uL [place] # (Auto) (0-900) /uL Eos # (Auto) (0-450) /uL Baso # (Auto) (0-100) /uL PT (10.1-12.7) SECONDS INR (0.9-1.3) APTT (26.4-36.2) SECONDS ABG pH 7.42 (7.35-7.45) ABG pCO2 52.0 H (35-45) mmHg ABG pO2 120 H (80-100) mmHg ABG HCO3 34 H (22-26) mmol/L ABG Total CO2 35 H (21-31) mmol/L ABG O2 Saturation 99 (95-100) % ABG Base Excess 9.0 H (-2-2) mmol/L FiO2 35 Sodium (137-145) mmol/L Potassium (3.4-5.1) mmol/L Chloride (98-107) mmol/L Carbon Dioxide (22-32) mmol/L BUN (9-20) mg/dL Creatinine (0.66-1.25) mg/dL Estimated GFR (>60) mL/min BUN/Creatinine Ratio (6-22) Glucose (80-110) mg/dL Calcium (8.4-10.2) mg/dL Total Bilirubin (0.2-1.3) mg/dL AST (17-59) IU/L ALT (<50) IU/L Alkaline Phosphatase (38-126) U/L Troponin I (0.01-0.034) ng/mL NT-Pro-B Natriuret Pep (<450) pg/mL Total Protein (6.3-8.2) g/dL Albumin (3.5-5.0) g/dL Globulin (1.7-4.1) g/dL Albumin/Globulin Ratio (1.0-2.8) Lipase (23-300) U/L Procalcitonin 0.23 (<0.5) ng/mL Imaging Data Chest x-ray: Radiologist's Impression: [place] [id number] [place] [id number] XRay Report Signed Patient: Sreekanth Erickson WMR#: [id number] : 6Acct:[id number] Age/Sex: 84 / MDate of Service: 12/05/19 Loc: ED Accession Number: [id number] Procedure: XR chest 1V Ordering Provider: Shorty Shirley D.O. PROCEDURE: XR CHEST 1V INDICATIONS: Shortness of breath TECHNIQUE: One view of the chest was acquired. COMPARISON: [facility], CR, XR CHEST 1V, 10/02/2019, 8:49. FINDINGS: Surgical changes and devices: Postoperative changes at the cervicothoracic junction are again evident. Lungs and pleura: Elevation of the right diaphragm is identified, similar to the prior study. There may be scar versus atelectasis at the right lung base. No new areas of pulmonary consolidation are evident. No large effusion or pneumothorax is evident. Mediastinum: Mediastinal contours appear normal. Heart size is is mildly enlarged. There is aortic atherosclerosis. Bones and chest wall: No suspicious bony lesions. Overlying soft tissues appear unremarkable. IMPRESSION: Cardiomegaly without overt heart failure. No definite pneumonia. Dictated by: Kevin Gomez M.D. on 12/05/2019 at 13:40 Approved by: Kevin Gomez M.D. on 12/05/2019 at 13:41 ECG Data Attestation: I personally reviewed and interpreted this ECG as follows: Prior ECG tracings: not available for review Interpretation: Atrial fibrillation Ventricular rate of 93 Left axis deviation QRS month [address] T wave changes MDM Narrative Medical decision making narrative: Patient arrives with 1 week of worsening shortness of breath, dyspnea on exertion, orthopnea. He does have swelling in his right lower extremity which is not new. He is therapeutic on his INR. No chest pain. Low suspicion for PE. Will hold on a CT a for now. Chest x-ray shows no signs of pneumonia. He is afebrile. Does have a slight leukocytosis. Has had a cough. Considered pneumonia however after discussion with the admitting provider will hold on any antibiotics for now. Patient with a recent diagnosis of COPD per his report. I have no notes regarding this. He was given a DuoNeb which had no significant impact on his respiratory status here in the ER. Considered steroids and antibiotics for potential COPD exacerbation however secondary to his clinical presentation after discussion with the admitting provider we will hold on steroids and antibiotics for this. Patient does have an elevated BNP. This does correspond with his presenting respiratory symptoms. He was given 60 mg of Lasix IV. I do feel that his clinical presentation is most like a CHF exacerbation. Review of his note showed an ejection fraction of 30-35% during his last admission in September. He did have a systolic blood pressure in the 90s. A mean arterial pressure in the 60-65 range. He does have dry mucous membranes. I do feel that he is intravascularly dry. Given 500 cc of fluid secondary to this. Patient was mentating fine. We will hold on any blood pressure medications for now. Will hold on any nitroglycerin secondary to his blood pressure. Patient denies chest pain. He is in atrial fibrillation. His rate controlled. Patient was hypoxic upon admission. I did discuss the case with Dr. Martin with Internal Medicine. Will admit for further evaluation treatment. I did discuss the admission with the patient and his . They expressed understanding and agreement Discharge Plan Departure Patient Disposition: Admitted As Inpatient Clinical Impression: CHF (congestive heart failure), Shortness of Breath, Hypoxia, COPD (chronic obstructive pulmonary disease), Atrial fibrillation Referrals: Martin Puente MD [Primary Care Provider] -
--- NOTE | 2019-12-05 14:09 | PC.NURSE ---
Pt assisted out of vehicle. tachypneic and labored breathing. usually wears 2L at home at night and has had to use it throughout the day. h/o CHF with recent dx of COPD. SPO2 88% RA. placed on 4L with improvement. Lungs diminished throughout with mild wheeze. recently placed on tourosomide 20mg. Afib 90-107. takes warfarin daily. 2+ edema to RLE. abd SNT and denies trouble urinating. wearing incontinence brief. Ambulatory yet unsteady at times. IV placed. labs lactate and BC x 1 drawn. receiving 500mL bolus. RT in room for EKG, breathing tx, and ABG. at bedside
[2019-12-05 14:17] LABS: INR 3.2 (0.9-1.3); Prothrombin Time 36.2 SECONDS (10.1-12.7)
[2019-12-05 14:20] LABS: PTT Partial Thromboplastin Tim 36 SECONDS (26.4-36.2)
[2019-12-05] MEDS: ALBUTEROL/IPRATROPIUM 3 ML AMPUL INH (14:20)
[2019-12-05] MEDS: SODIUM CHLORIDE 0.9% 1,000 ML 500 ML IV (14:20)
[2019-12-05 14:24] LABS: Alanine Aminotransferase 12 IU/L (<50); Alkaline Phosphatase 90 U/L (38-126); Aspartate Aminotransferase 24 IU/L (17-59); BUN Creatinine Ratio 38.1 (6-22); Bilirubin Total 0.9 mg/dL (0.2-1.3); Blood Urea Nitrogen 61 mg/dL (9-20); Carbon Dioxide 36 mmol/L (22-32); Chloride 96 mmol/L (98-107); Estimated Glomerular Filt Rate 41.5 mL/min (>60); Glucose 135 mg/dL (80-110); HEMOLYSIS < 15 (0-50); Lipase 46 U/L (23-300); Potassium 4.4 mmol/L (3.4-5.1); Sodium 141 mmol/L (137-145)
[2019-12-05 14:35] LABS: Troponin I < 0.012 ng/mL (0.01-0.034)
[2019-12-05 14:40] LABS: Procalcitonin 0.23 ng/mL (<0.5)
[2019-12-05] MEDS: FUROSEMIDE 100 MG/10 ML VIAL 60 MG IV (14:55)
[2019-12-05 14:58] LABS: HCO3 ABG 34 mmol/L (22-26); PO2 ABG 120 mmHg (80-100); TCO2 ABG 35 mmol/L (21-31); pH ABG 7.42 (7.35-7.45)
[2019-12-05 14:59] LABS: Fractionated Inspired Oxygen 35; Oxygen Saturation ABG 99 % (95-100)
[2019-12-05 15:12] LABS: NT-proBNP (BNP-Adult 18+) 1360 pg/mL (<450)
--- NOTE | 2019-12-05 16:04 | PC.NURSE ---
pt noted to not have any urine output after receiving lasix. Bladder scan about 622mL. verbal order for villareal placement
[2019-12-05 18:12] LABS: Adenovirus Not Detected (Not Detect); Bordetella pertussis Not Detected (Not Detect); Chlamydophila pneumoniae Not Detected (Not Detect); Coronavirus 229E Not Detected (Not Detect); Coronavirus HKU1 Not Detected (Not Detect); Coronavirus NL 63 Not Detected (Not Detect); Coronavirus OC43 Not Detected (Not Detect); Human Metapneumovirus Not Detected (Not Detect); Human Rhinovirus/Enterovirus Not Detected (Not Detect); Influenza A Not Detected (Not Detect); Influenza B Not Detected (Not Detect); Mycoplasma pneumoniae Not Detected (Not Detect); Parainfluenza Virus 1 Not Detected (Not Detect); Parainfluenza Virus 2 Not Detected (Not Detect); Parainfluenza Virus 3 Not Detected (Not Detect); Parainfluenza Virus 4 Not Detected (Not Detect); Respiratory Syncytial Virus Not Detected (Not Detect)
--- NOTE | 2019-12-05 18:47 | PM.HP.1 ---
History of Present Illness History of Present Illness Date Patient Seen: 12/05/19 Time Patient Seen: 18:45 Chief complaint: Shortness of breath Narrative: Sreekanth Erickson is an 84-year-old male with past medical history of hypertension, hyperlipidemia, AFib on Coumadin, gout, SDH in 06/2019, and CHFrEF(dx 09/2019 admitted here with dyspnea) who presented with shortness of breath for the past week. Patient states that about a week ago his traffic personnel supervisor's on him and switched him from Lasix to torsemide 20 mg. With this change he did have an increase in his urination, but he became increasingly short of breath especially over the past 2 days to the point where he felt short of breath at rest. He states that he has been voiding every 2-3 hours over the past week or so, without any difficulty in initiating stream, and he denies any slow stream. With that changed to torsemide he has lost about 6 lb over the past week, and he also has been dealing with odynophagia since his subdural hemorrhage and has lost about 50 lb over fear of eating due to the pain. He does note some mild lower extremity edema, which he does not feel significantly increased from a week ago. He denies any recent fever, chills. He does note some nasal congestion and runny nose. His throat seems to be more sore over the last couple of days. He denies any nausea, vomiting, hematemesis, melena, bright red blood per rectum, abdominal pain, rash. In the emergency room, patient was mildly hypotensive and mildly tachycardic. He was hypoxic on room air into the mid 80s which improved on 2 L of some mental oxygen. His weight is about 5 kg less than his discharge weight. He was given a small bolus of 500 cc, and then 60 mg of Lasix. Initial lab evaluation showed a mild leukocytosis to 13, hemoglobin of 10.9, INR 3.2. ABG showed a pCO2 of 52 which is improved from his prior admission, PO2 of 120 and a pH of 7.42. Chemistries showed a elevated BUN at 61, with creatinine of 1.6 up from his baseline of 1.2-1.3 during his last admission. Troponin was negative, proBNP was 1360. Respiratory panel was negative. Patient was admitted to Medicine for likely CHF exacerbation. Patient History Medical History Abdominal bruit (Acute) Afib (Acute) Back pain (Acute) Bladder cancer (Acute) Bradycardia (Acute) CAD (coronary artery disease) (Acute) Cardiomyopathy (Acute) Constipation (Chronic) Degenerative joint disease (Acute) Epistaxis (Acute) Gout (Acute) History of subdural hematoma (Acute) Hyperlipidemia (Acute) Hyperuricemia (Acute) Inguinal hernia (Acute) Myositis (Acute) Obstructive sleep apnea (Acute) Polyneuropathy (Acute) Thoracic spondylosis without myelopathy (Acute) Tremor of right hand (Chronic) Umbilical hernia (Acute) UTI (urinary tract infection) (Acute) Varicose veins of both lower extremities (Acute) Venous stasis ulcer (Acute) Family & Social History Social History: household members spouse Safety & Behavioral: Feels Safe in Current Yes Environment Been Physically Hurt or No Threatened By a Person Tobacco & Substance use: Smoking Status Former smoker alcohol intake never alcohol intake frequency 0-2 drinks per day Substance Use Type does not use Meds Home Medications and Allergies Home Medications Medication Instructions Recorded Confirmed Type polyethylene glycol 3350 [Miralax] 17 gm PO DAILY #0 07/15/17 10/02/19 History lidocaine 1 patch TOP DAILY #15 each 06/09/19 10/02/19 Rx gabapentin 300 mg PO BID 07/11/19 12/05/19 History Bacid 1 tab PO BID 10/02/19 12/05/19 History acetaminophen 500 mg PO TID PRN 10/02/19 12/05/19 History allopurinol 300 mg PO DAILY 10/02/19 12/05/19 History atorvastatin 80 mg PO QPM 10/02/19 12/05/19 History folic acid 1 mg PO DAILY 10/02/19 10/02/19 History ipratropium-albuterol 3 ml INHALATION Q4H PRN 10/02/19 10/02/19 History magnesium citrate 300 ml PO DAILY PRN 10/02/19 10/02/19 History melatonin 6 mg PO BEDTIME 10/02/19 10/02/19 History metoprolol succinate 100 mg PO BID 10/02/19 12/05/19 History oxymetazoline [Afrin 2 spray INTRANASAL DAILY PRN 10/02/19 10/02/19 History (oxymetazoline)] tamsulosin 0.8 mg PO DAILY 10/02/19 12/05/19 History trospium 60 mg PO QAM 10/02/19 12/05/19 History nystatin [Nystop] 1 applic TOPICAL BID #15 g 10/08/19 Rx polyethylene glycol 3350 17 gm PO DAILY #1 pkg 10/08/19 Rx warfarin 3 mg PO SUMOTUTHFRSA #0 tab 10/08/19 12/05/19 Rx torsemide 20 mg PO DAILY 12/05/19 12/05/19 History Allergies Allergy/AdvReac Type Severity Reaction Status Date / Time lisinopril [LISINOPRIL] AdvReac Mild NAUSEA Verified 07/11/19 08:06 Review of Systems Review of Systems Narrative: All other systems reviewed with the patient and are negative unless otherwise stated. Exam Vital Signs (past 8 hours): - 12/05/19 13:56 12/05/19 14:01 12/05/19 14:24 Temperature 97.8 F Pulse Rate 93 H 93 H 102 H Respiratory Rate 30 H 25 H 24 Blood Pressure 93/54 L Blood Pressure [Left Arm] 96/53 L 87/53 L Pulse Oximetry 87 L 93 98 12/05/19 15:00 12/05/19 15:54 12/05/19 16:00 Temperature Pulse Rate 86 120 H 105 H Respiratory Rate 24 21 25 H Blood Pressure Blood Pressure [Left Arm] 90/52 L 98/60 111/55 L Pulse Oximetry 97 94 98 12/05/19 16:46 12/05/19 17:10 Temperature 97.8 F Pulse Rate 110 H 111 H Respiratory Rate 21 20 Blood Pressure 127/74 111/57 L Blood Pressure [Left Arm] Pulse Oximetry 98 96 Oxygen Delivery Method Nasal Cannula Oxygen Flow Rate 2 Narrative Exam Narrative: GENERAL APPEARANCE: Chronically ill-appearing, elderly, obese male in no acute distress with hoarse voice. SKIN: Inspection of the skin reveals no rashes, ulcerations or petechiae. HEENT: Dry oral mucosa, with thrush, mild posterior pharyngeal cobblestoning, no tonsils visible. NECK: Tender right cervical lymphadenopathy, no thyroid enlargement. CHEST: Normal AP diameter and normal contour without any kyphoscoliosis. LUNGS: Auscultation of the lungs revealed bibasilar crackles, mild right-sided expiratory wheeze that improved with cough. CARDIOVASCULAR: There was a regular rate and rhythm without any murmurs, gallops, rubs. Peripheral pulses were 2+ and symmetric. ABDOMEN: Soft and nontender with normal bowel sounds. No ascites was noted. MUSCULOSKELETAL: There was no tenderness or effusions noted. Muscle strength and tone were normal. EXTREMITIES: No cyanosis, clubbing. There is mild peripheral edema NEUROLOGIC: Alert and oriented x 3. Slightly flat affect. Moving all extremities equally. Objective ECG Impression: Atrial fibrillation, rate 93. No gross morphology changes compared to previous. There is evidence of a ventricular conduction delay, but again this appears unchanged compared to previous EKG. Labs Result Diagrams: 12/05/19 14:00 12/05/19 14:00 Labs: Laboratory Results - last 24 hr 12/05/19 12/05/19 12/05/19 14:00 14:00 14:00 WBC 13.0 H RBC 3.66 L Hgb 10.9 L Hct 33.9 L MCV 92.6 MCH 29.8 MCHC 32.2 RDW 16.6 H Plt Count 182 Neut % (Auto) 78.7 H Lymph % (Auto) 11.8 L Stokes % (Auto) 7.5 Eos % (Auto) 1.5 L Baso % (Auto) 0.5 Neut # (Auto) 94751 H Lymph # (Auto) 1500 Stokes # (Auto) 1000 H Eos # (Auto) 200 Baso # (Auto) 100 PT 36.2 H INR 3.2 H APTT 36 D ABG pH ABG pCO2 ABG pO2 ABG HCO3 ABG Total CO2 ABG O2 Saturation ABG Base Excess FiO2 Sodium 141 Potassium 4.4 Chloride 96 L Carbon Dioxide 36 H BUN 61 H Creatinine 1.60 H Estimated GFR 41.5 L BUN/Creatinine Ratio 38.1 H Glucose 135 H Calcium 10.0 Total Bilirubin 0.9 AST 24 ALT 12 Alkaline Phosphatase 90 Troponin I < 0.012 NT-Pro-B Natriuret Pep 1360 H Total Protein 8.0 Albumin 4.0 Globulin 4.0 Albumin/Globulin Ratio 1.0 Lipase 46 Procalcitonin Chlamy pneumoniae PCR Adenovirus (PCR) B.parapertussis DNA PCR Coronavirus OC43 (PCR) Coronavirus HKU1 (PCR) Coronavirus 229E (PCR) Coronavirus NL63 (PCR) Human Metapneumovir PCR Influenza Type A (PCR) Influenza Type B (PCR) M. pneumoniae (PCR) Parainfluenza 1 (PCR) Parainfluenza 2 (PCR) Parainfluenza 3 (PCR) Parainfluenza 4 (PCR) RSV (PCR) Entero/Rhino (PCR) 12/05/19 12/05/19 12/05/19 14:00 14:16 16:10 WBC RBC Hgb Hct MCV MCH MCHC RDW Plt Count Neut % (Auto) Lymph % (Auto) Stokes % (Auto) Eos % (Auto) Baso % (Auto) Neut # (Auto) Lymph # (Auto) Stokes # (Auto) Eos # (Auto) Baso # (Auto) PT INR APTT ABG pH 7.42 ABG pCO2 52.0 H ABG pO2 120 H ABG HCO3 34 H ABG Total CO2 35 H ABG O2 Saturation 99 ABG Base Excess 9.0 H FiO2 35 Sodium Potassium Chloride Carbon Dioxide BUN Creatinine Estimated GFR BUN/Creatinine Ratio Glucose Calcium Total Bilirubin AST ALT Alkaline Phosphatase Troponin I NT-Pro-B Natriuret Pep Total Protein Albumin Globulin Albumin/Globulin Ratio Lipase Procalcitonin 0.23 Chlamy pneumoniae PCR Not detected Adenovirus (PCR) Not detected B.parapertussis DNA PCR Not detected Coronavirus OC43 (PCR) Not detected Coronavirus HKU1 (PCR) Not detected Coronavirus 229E (PCR) Not detected Coronavirus NL63 (PCR) Not detected Human Metapneumovir PCR Not detected Influenza Type A (PCR) Not detected Influenza Type B (PCR) Not detected M. pneumoniae (PCR) Not detected Parainfluenza 1 (PCR) Not detected Parainfluenza 2 (PCR) Not detected Parainfluenza 3 (PCR) Not detected Parainfluenza 4 (PCR) Not detected RSV (PCR) Not detected Entero/Rhino (PCR) Not detected Assessment & Plan Assessment & Plan narrative: Sreekanth Erickson is an 84-year-old male with past medical history significant for hypertension, hyperlipidemia, chronic atrial fibrillation on Coumadin, gout, subdural hemorrhage in June of 2019, chronic odynophagia, and CHF with reduced ejection fraction who was admitted for acute on chronic hypoxemic respiratory failure and decompensated heart failure. 1. Acute hypoxemic respiratory failure in setting of a chronic hypercarbic respiratory failure, present on admission -patient with acute hypoxia requiring supplemental oxygen. This is likely secondary to volume overload in setting of decompensated heart failure. The reason for his decompensated heart failure is discussed below. -continue diuresis as noted below -RT eval and treat 2. Decompensated congestive heart failure with reduced ejection fraction, present on admission. Active. -Echocardiogram previously demonstrated decreased LV function with ejection fraction of 30-35%. Possibly secondary to SARINA previously. -decompensation is possible secondary to a number of underlying etiologies, including weight loss and malnutrition from his odynophagia, BPH with bladder outlet obstruction causing ineffective diuresis as outpatient, and possible upper respiratory infection. -Will diurese with 60 mg IV lasix BID, s/p tonights dose in the ED. -Continued strict I&O and daily weights. -Continue low-sodium < 2g daily and fluid-restricted diet 1.5 L. 3. Odynophagia, acute on chronic, present on admission -patient has scheduled ENT with plan for endoscopy next week as an outpatient. -there is evidence of oral thrush, he has been off of his clotrimazole troches and his nystatin swish and swallow does not seem to be working. -will restart clotrimazole troches -he also likely has a viral URI as noted below, continue supportive care at this time with as needed pain relief avoiding NSAIDs given patient's coumadin. 4. Chronic atrial fibrillation with RVR, present on admission. RVR resolved. -Continue metoprolol succinate 100 mg twice daily. 5. Supratherapeutic INR, present on admission. -only mildly elevated at 3.2. Will recheck with labs in the morning, continue outpatient dosing of Coumadin. No evidence of active bleeding. Avoid NSAIDs. 6. BPH with bladder outlet obstruction, chronic, present on admission. Stable. -Patient had 600 cc urinary retention with placement of a Velasquez catheter in the ED. -Continued tamsulosin 0.8 mg daily. -he had a similar story with his prior admission but was able to void upon discharge. Will continue home tamsulosin and repeat trial of void prior to discharge. 7. Gout, chronic, present on admission. Stable. -Continue allopurinol 300 mg daily. 8. Recent subdural hematoma, status post cervical fusion, present on admission. Stable. -Continued cervical collar and plan for outpatient follow-up at scheduled appointment on 10/23/2019 with orthopedic surgery at [facility]. 9. Possible upper respiratory infection - -respiratory panel is negative, he has right-sided tender cervical lymphadenopathy as well as symptoms of rhinorrhea and cough. He has some cobblestoning in his posterior throat. -continue symptomatic care at this time. Will also continue to treat thrush is noted above. - procalcitonin is 0.26 Time Spent With Patient Time with patient: Greater than 35 minutes
--- NOTE | 2019-12-05 20:09 | DI.ECHO.S_ITS ---
[facility]---------+ [facility] +---------+ : : [address] [place] : : : : [id number] : : : : Phone: [phone]+ Echocardiogram Report + + :Name: PAULETTE CHEW Study Date: 12/06/2019 Height: 73 in : :[facility] Weight: 223 lb : : Gender: Male BSA: 2.3 m2 : :: 1935 Age: 84 yrs BP: 110/59 mmHg: :Reason For Study: HEART FAILURE : :Ordering Physician: Delmi : :Hospitalist Performed By: Mandi Bruno : :Referring: BUCKY DUNN : + + Interpretation Summary The patient was in atrial fibrillation with heart rates between 84-101 bpm during the exam. The patient had a bundle branch block rhythm during the exam. The left ventricle is mildly dilated. The ejection fraction is estimated to be 30-35%. There has been no significant change in LVEF since the previous study. The right ventricle is mild to moderately dilated. Right ventricular systolic function is mildly reduced. There is mild to moderate tricuspid regurgitation. Compared to the prior echo exam, there has been no change in TR severity. Right ventricular systolic pressure is estimated to be 20.7 mmHg plus the clinically estimated CVP which cannot be estimated on this exam. Procedure: A two-dimensional transthoracic echocardiogram with color flow and Doppler was performed. The apical views were difficult to obtain and are suboptimal in quality. A contrast injection of Definity was performed to improve assessment of LV function. The study quality was technically difficult. The subcostal views were difficult to obtain and are suboptimal in quality. The patient was in atrial fibrillation with heart rates between 84- 101 bpm during the exam. The patient had a bundle branch block rhythm during the exam. Left Ventricle: The left ventricle is mildly dilated. Left ventricular wall thickness is mildly increased. There is no thrombus. The ejection fraction is estimated to be 30-35%. There has been no significant change since the previous study. There is moderate to severe global hypokinesis of the left ventricle. Diastolic function could not be accurately assessed due to atrial fibrillation. Right Ventricle: The right ventricle is mild to moderately dilated. Right ventricular systolic function is mildly reduced. Atria: Both atria are mildly dilated. Both atria have mildly decreased in size since the prior echo exam. There is no Doppler evidence for an interatrial shunt. Mitral Valve: The mitral valve is normal in structure and function. There is mild mitral regurgitation. Aortic Valve: The aortic valve is trileaflet. There is mild aortic valve sclerosis. There is no aortic valve stenosis. No aortic regurgitation is present. Tricuspid Valve: The tricuspid valve is normal in structure and function. There is mild to moderate tricuspid regurgitation. Compared to the prior echo exam, there has been no change in TR severity. Right ventricular systolic pressure is estimated to be 20.7 mmHg plus the clinically estimated CVP which cannot be estimated on this exam. Pulmonic Valve: The pulmonic valve is not well visualized. There is no pulmonic valvular regurgitation. Great Vessels: The aortic root is borderline dilated. The ascending aorta could not be visualized. The inferior vena cava was not visualized. Pericardium/ Pleura There is no pericardial effusion. There is an anterior echo-free space consistent with a fat pad. MMode/2D Measurements & Calculations LVIDd: 5.0 cm LVOT diam: 2.4 cm LVIDs: 4.1 cm Ao root diam: 3.9 cm FS: 19.3 % EPSS: 1.6 cm IVSd: 0.96 cm LVPWd: 1.3 cm LV rojas. diameter/BSA (cm/m^2): 2.2 LV sys. diameter/BSA (cm/m^2): 1.8 LA A2 area: 20.8 cm2 RA long axis: 5.1 cm LA A4 area: 19.2 cm2 RA area: 18.5 cm2 LA length (vol): 4.9 cm RA vol: 57.6 ml LA vol: 68.6 ml RA : 25.5 ml/m2 LA vol index: 30.4 ml/m2 RVD1 (basal): 4.3 cm TAPSE: 1.6 cm Doppler Measurements & Calculations Ao V2 max: 118.9 cm/sec LVOT Max Kasi: 64.5 cm/sec Ao V2 mean: 83.8 cm/sec LV V1 max P.7 mmHg Ao max P.7 mmHg LV V1 VTI: 9.6 cm Ao mean P.2 mmHg KERRY(I,D): 2.6 cm2 Ao V2 VTI: 16.8 cm KERRY(V,D): 2.5 cm2 sev ratio: 0.57 KERRY indexed to BSA (cm^2/m^2): 1.2 MV E max kasi: 77.9 cm/sec TR max kasi: 227.6 cm/sec MV A max kasi: 1.4 cm/sec TR max P.7 mmHg MV E/A: 57.7 PA V2 max: 78.1 cm/sec Med Peak E' Kasi: 6.4 cm/sec PA V2 mean: 49.7 cm/sec E/E' med: 12.2 PA mean P.2 mmHg Lat Peak E' Kasi: 6.1 cm/sec PA pr(Accel): 25.8 mmHg E/E' lat: 12.8 E/e' average: 12.5 MV dec time: 0.18 sec SV(LVOT): 43.8 ml Reading Physician:06:21 PM
[2019-12-05] MEDS: SODIUM CHLORIDE 0.9% FLUSH 10 ML IV (21:04)
[2019-12-05] MEDS: GABAPENTIN 300 MG CAPSULE PO (21:04)
[2019-12-05] MEDS: METOPROLOL ER 50 MG TABLET 100 MG PO (21:05)
[2019-12-05] MEDS: CLOTRIMAZOLE TROCHE 10 MG PO (21:07)
--- NOTE | 2019-12-05 23:26 | PC.NURSE ---
Evening Shift Note- Patient arrived to room via stretcher at 1710. Patient able to pivot transfer from stretcher to bed. admission [id number] done, home medications reviewed, and physical assessment done. Oriented patient to bed and bed controls, room, lights, phone, menu, and call lewis/tv remote. No complaints of pain or discomfort. No complaints of N?V. Photos take of skin issues. safety measures in place. Patient agrees to call for assistance. bed alarm activated. Will continue to monitor.
[2019-12-06] VITALS (26 sets, daily range): BP systolic 72–120; BP diastolic 42–71; PULSE 87–118; RESP 14–26; TEMP 36.7–38.2; O2SAT 88–100
[2019-12-06] MEDS: ALBUTEROL/IPRATROPIUM 3 ML AMPUL INH (05:20)
[2019-12-06 05:32] LABS: Add Manual Diff / Slide Review NO; Basophils Absolute Auto 0 /uL (0-100); Basophils Percent Auto 0.4 % (0-2); Eosinophils Absolute Auto 200 /uL (0-450); Eosinophils Percent Auto 1.2 % (2-4); Hemoglobin 10.9 g/dL (13.5-17.5); Lymphocytes Absolute Auto 1500 /uL (1100-4500); Lymphocytes Percent Auto 11.4 % (25-40); Mean Corpuscular Hemoglobin 29.5 PG (26-34); Mean Corpuscular Volume 92.4 fL (80-100); Monocytes Absolute Auto 1100 /uL (0-900); Monocytes Percent Auto 8.1 % (3-14); Neutrophils Absolute Auto 10500 /uL (1500-7000); Neutrophils Percent Auto 78.9 % (50-75); Platelet Count 165 X10^3/uL (150-400); Red Blood Cell Count 3.68 X10^6/uL (4.5-5.9); Red Cell Distribution Width 16.7 % (11.6-14.8); White Blood Cell Count 13.3 X10^3/uL (4.5-11.0)
[2019-12-06 05:46] LABS: Alanine Aminotransferase 11 IU/L (<50); Albumin 3.8 g/dL (3.5-5.0); Alkaline Phosphatase 84 U/L (38-126); Aspartate Aminotransferase 22 IU/L (17-59); Bilirubin Total 0.8 mg/dL (0.2-1.3); Bilirubin Unconjugated 0.7 mg/dL (0.0-1.1); Blood Urea Nitrogen 54 mg/dL (9-20); Carbon Dioxide 36 mmol/L (22-32); Chloride 99 mmol/L (98-107); Estimated Glomerular Filt Rate 57.8 mL/min (>60); Globulin 3.8 g/dL (1.7-4.1); Glucose 125 mg/dL (80-110); HEMOLYSIS < 15 (0-50); Potassium 4.5 mmol/L (3.4-5.1); Sodium 141 mmol/L (137-145); Total Protein 7.6 g/dL (6.3-8.2)
[2019-12-06 06:21] LABS: TSH w/ Reflex to FT4 0.29 uIU/mL (0.47-4.68)
[2019-12-06 06:59] LABS: Free T4, Direct Thyroxine 1.45 ng/dL (0.78-2.19)
[2019-12-06] MEDS: SODIUM CHLORIDE 0.9% FLUSH 10 ML IV (08:18)
[2019-12-06] MEDS: FUROSEMIDE 100 MG/10 ML VIAL 60 MG IV (08:18)
[2019-12-06 08:54] LABS: INR 3.1 (0.9-1.3)
[2019-12-06] MEDS: SODIUM CHLORIDE 0.9% 1,000 ML 75 ML IV (11:22)
--- NOTE | 2019-12-06 12:53 | P.PN_ITS ---
Subjective Subjective Date Patient Seen: 12/06/19 Time Patient Seen: 12:53 Interval history: Sreekanth Erickson is an 84-year-old male with past medical history of hypertension, hyperlipidemia, AFib on Coumadin, gout, SDH in 06/2019, and CHFrEF (dx 09/2019 admitted here with dyspnea) who presented with shortness of breath for the past week. He was initially admitted over concern for heart failure exacerbation, however this morning he appeared to have more labored breathing despite adequate diuresis. His breathing difficulties appeared more consistent with an upper airway lesion and the patient's odynophagia had worsened to the point of him being unable to tolerate any PO intake at all. ENT was called, and they came to perform a bedside endoscopy. This revealed a bilateral vocal cord paralysis and some whitish material near the vocal folds that was unclear if this was fungal or food debris. Anesthesia was called and the patient was intubated with an 8 tube. Bone was called for possible transfer, and this is currently in process but will not likely occur until the morning. After intubation, the patient is hemodynamically stable and doing well on minimal vent settings. He is also currently getting an echocardiogram, and the results are pending. Exam Vital Signs (past 8 hours): - 12/06/19 05:00 12/06/19 05:19 12/06/19 08:29 Temperature 100.7 F H Pulse Rate 108 H 107 H Respiratory Rate 24 26 H Blood Pressure 120/62 Pulse Oximetry 98 98 93 12/06/19 09:04 12/06/19 09:34 12/06/19 09:44 Temperature 100.0 F H Pulse Rate 101 H Respiratory Rate 24 Blood Pressure Pulse Oximetry 93 100 12/06/19 10:39 12/06/19 12:22 Temperature 98.4 F 98.4 F Pulse Rate 118 H Respiratory Rate 24 Blood Pressure 120/71 Pulse Oximetry 95 Oxygen Delivery Method Nasal Cannula,CPAP Oxygen Flow Rate 1 Narrative Exam Narrative: (Done prior to intubation) GENERAL APPEARANCE: Anxious appearing, elderly male. Speaking in short sentences, with high-pitched upper airway breath sounds. SKIN: Inspection of the skin reveals no rashes, ulcerations or petechiae. HEENT: Dry oral mucosa, with thrush, mild posterior pharyngeal cobblestoning, no tonsils visible. NECK: Tender right cervical lymphadenopathy, no thyroid enlargement. CHEST: Normal AP diameter and normal contour without any kyphoscoliosis. LUNGS: Auscultation of the lungs revealed bibasilar crackles, prominent upper respiratory wheezing as noted above. Stridorous in nature. CARDIOVASCULAR: There was a regular rate and rhythm without any murmurs, gallops, rubs. Peripheral pulses were 2+ and symmetric. ABDOMEN: Soft and nontender with normal bowel sounds. No ascites was noted. MUSCULOSKELETAL: There was no tenderness or effusions noted. Muscle strength and tone were normal. EXTREMITIES: No cyanosis, clubbing. There is mild peripheral edema NEUROLOGIC: Alert and oriented x 3. Slightly flat affect. Moving all extremities equally. Objective Labs Result Diagrams: 12/06/19 05:14 12/06/19 05:14 Labs: Laboratory Results - last 24 hr 12/05/19 12/05/19 12/05/19 14:00 14:00 14:00 WBC 13.0 H RBC 3.66 L Hgb 10.9 L Hct 33.9 L MCV 92.6 MCH 29.8 MCHC 32.2 RDW 16.6 H Plt Count 182 Neut % (Auto) 78.7 H Lymph % (Auto) 11.8 L [place] % (Auto) 7.5 Eos % (Auto) 1.5 L Baso % (Auto) 0.5 Neut # (Auto) 77001 H Lymph # (Auto) 1500 [place] # (Auto) 1000 H Eos # (Auto) 200 Baso # (Auto) 100 PT 36.2 H INR 3.2 H APTT 36 D ABG pH ABG pCO2 ABG pO2 ABG HCO3 ABG Total CO2 ABG O2 Saturation ABG Base Excess FiO2 Sodium 141 Potassium 4.4 Chloride 96 L Carbon Dioxide 36 H BUN 61 H Creatinine 1.60 H Estimated GFR 41.5 L BUN/Creatinine Ratio 38.1 H Glucose 135 H Calcium 10.0 Magnesium Total Bilirubin 0.9 Conjugated Bilirubin Unconjugated Bilirubin AST 24 ALT 12 Alkaline Phosphatase 90 Troponin I < 0.012 NT-Pro-B Natriuret Pep 1360 H Total Protein 8.0 Albumin 4.0 Globulin 4.0 Albumin/Globulin Ratio 1.0 Lipase 46 Procalcitonin TSH Free T4 Chlamy pneumoniae PCR Adenovirus (PCR) B.parapertussis DNA PCR Coronavirus OC43 (PCR) Coronavirus HKU1 (PCR) Coronavirus 229E (PCR) Coronavirus NL63 (PCR) Human Metapneumovir PCR Influenza Type A (PCR) Influenza Type B (PCR) M. pneumoniae (PCR) Parainfluenza 1 (PCR) Parainfluenza 2 (PCR) Parainfluenza 3 (PCR) Parainfluenza 4 (PCR) RSV (PCR) Entero/Rhino (PCR) 12/05/19 12/05/19 12/05/19 14:00 14:16 16:10 WBC RBC Hgb Hct MCV MCH MCHC RDW Plt Count Neut % (Auto) Lymph % (Auto) [place] % (Auto) Eos % (Auto) Baso % (Auto) Neut # (Auto) Lymph # (Auto) [place] # (Auto) Eos # (Auto) Baso # (Auto) PT INR APTT ABG pH 7.42 ABG pCO2 52.0 H ABG pO2 120 H ABG HCO3 34 H ABG Total CO2 35 H ABG O2 Saturation 99 ABG Base Excess 9.0 H FiO2 35 Sodium Potassium Chloride Carbon Dioxide BUN Creatinine Estimated GFR BUN/Creatinine Ratio Glucose Calcium Magnesium Total Bilirubin Conjugated Bilirubin Unconjugated Bilirubin AST ALT Alkaline Phosphatase Troponin I NT-Pro-B Natriuret Pep Total Protein Albumin Globulin Albumin/Globulin Ratio Lipase Procalcitonin 0.23 TSH Free T4 Chlamy pneumoniae PCR Not detected Adenovirus (PCR) Not detected B.parapertussis DNA PCR Not detected Coronavirus OC43 (PCR) Not detected Coronavirus HKU1 (PCR) Not detected Coronavirus 229E (PCR) Not detected Coronavirus NL63 (PCR) Not detected Human Metapneumovir PCR Not detected Influenza Type A (PCR) Not detected Influenza Type B (PCR) Not detected M. pneumoniae (PCR) Not detected Parainfluenza 1 (PCR) Not detected Parainfluenza 2 (PCR) Not detected Parainfluenza 3 (PCR) Not detected Parainfluenza 4 (PCR) Not detected RSV (PCR) Not detected Entero/Rhino (PCR) Not detected 12/06/19 12/06/19 12/06/19 05:14 05:14 05:14 WBC 13.3 H RBC 3.68 L Hgb 10.9 L Hct 34.0 L MCV 92.4 MCH 29.5 MCHC 32.0 RDW 16.7 H Plt Count 165 Neut % (Auto) 78.9 H Lymph % (Auto) 11.4 L [place] % (Auto) 8.1 Eos % (Auto) 1.2 L Baso % (Auto) 0.4 Neut # (Auto) 45784 H Lymph # (Auto) 1500 [place] # (Auto) 1100 H Eos # (Auto) 200 Baso # (Auto) 0 PT INR APTT ABG pH ABG pCO2 ABG pO2 ABG HCO3 ABG Total CO2 ABG O2 Saturation ABG Base Excess FiO2 Sodium 141 Potassium 4.5 Chloride 99 Carbon Dioxide 36 H BUN 54 H Creatinine 1.20 Estimated GFR 57.8 L BUN/Creatinine Ratio 45.0 H Glucose 125 H Calcium 10.0 Magnesium 2.0 Total Bilirubin 0.8 Conjugated Bilirubin 0.0 Unconjugated Bilirubin 0.7 AST 22 ALT 11 Alkaline Phosphatase 84 Troponin I NT-Pro-B Natriuret Pep Total Protein 7.6 Albumin 3.8 Globulin 3.8 Albumin/Globulin Ratio 1.0 Lipase Procalcitonin TSH 0.29 L Free T4 1.45 Chlamy pneumoniae PCR Adenovirus (PCR) B.parapertussis DNA PCR Coronavirus OC43 (PCR) Coronavirus HKU1 (PCR) Coronavirus 229E (PCR) Coronavirus NL63 (PCR) Human Metapneumovir PCR Influenza Type A (PCR) Influenza Type B (PCR) M. pneumoniae (PCR) Parainfluenza 1 (PCR) Parainfluenza 2 (PCR) Parainfluenza 3 (PCR) Parainfluenza 4 (PCR) RSV (PCR) Entero/Rhino (PCR) 12/06/19 08:20 WBC RBC Hgb Hct MCV MCH MCHC RDW Plt Count Neut % (Auto) Lymph % (Auto) [place] % (Auto) Eos % (Auto) Baso % (Auto) Neut # (Auto) Lymph # (Auto) [place] # (Auto) Eos # (Auto) Baso # (Auto) PT 35.0 H INR 3.1 H APTT ABG pH ABG pCO2 ABG pO2 ABG HCO3 ABG Total CO2 ABG O2 Saturation ABG Base Excess FiO2 Sodium Potassium Chloride Carbon Dioxide BUN Creatinine Estimated GFR BUN/Creatinine Ratio Glucose Calcium Magnesium Total Bilirubin Conjugated Bilirubin Unconjugated Bilirubin AST ALT Alkaline Phosphatase Troponin I NT-Pro-B Natriuret Pep Total Protein Albumin Globulin Albumin/Globulin Ratio Lipase Procalcitonin TSH Free T4 Chlamy pneumoniae PCR Adenovirus (PCR) B.parapertussis DNA PCR Coronavirus OC43 (PCR) Coronavirus HKU1 (PCR) Coronavirus 229E (PCR) Coronavirus NL63 (PCR) Human Metapneumovir PCR Influenza Type A (PCR) Influenza Type B (PCR) M. pneumoniae (PCR) Parainfluenza 1 (PCR) Parainfluenza 2 (PCR) Parainfluenza 3 (PCR) Parainfluenza 4 (PCR) RSV (PCR) Entero/Rhino (PCR) Assessment & Plan Assessment & Plan narrative: Sreekanth Erickson is an 84-year-old male with past medical history significant for hypertension, hyperlipidemia, chronic atrial fibrillation on Coumadin, gout, subdural hemorrhage in June of 2019, chronic odynophagia, and CHF with reduced ejection fraction who was admitted for acute on chronic hypoxemic respiratory failure to be secondary to decompensated heart failure. He was diuresed overnight and his oxygenation was improved, but his overall respiratory impression on exam this morning was slightly worse. His breath sounds were stridorous in nature and ultimately endoscopy with ENT showed bilateral vocal cord paralysis. He was intubated for airway protection after discussion with ENT and patient and his . He is currently pending transfer for higher level of care, however this is not emergent and after discussion this evening with Savery this will be re-evaluated in the morning. 1. Acute hypoxemic respiratory failure in setting of a chronic hypercarbic respiratory failure, present on admission -patient with acute hypoxia requiring supplemental oxygen. This was likely secondary to volume overload in setting of decompensated heart failure, however this is now complicated by his vocal cord paralysis. He did not have any evidence aspiration, and the patient was not eating much anyway while here. -I have stopped diuresis at this point and actually started the patient on fluids is his overall volume status appeared slightly dehydrated upon evaluation this morning. 2. Decompensated congestive heart failure with reduced ejection fraction, present on admission. Improved. -Echocardiogram previously demonstrated decreased LV function with ejection fraction of 30-35%. Possibly secondary to SARINA, however with bilateral vocal cord paralysis they may be more systemic cause pending further workup. -decompensation is possible secondary to a number of underlying etiologies, including weight loss and malnutrition from his odynophagia, BPH with bladder outlet obstruction causing ineffective diuresis as outpatient, or a more systemic disease as noted below. 3. Bilateral vocal cord paralysis - -etiology is not entirely clear at this time. Patient has not had any recent fevers suggestive of infection. He does have a new diagnosis of heart failure as of September which may suggest a more systemic disease, as well as a history of neck surgery and a subdural hemorrhage. -will order CT scan with contrast of his head and neck and chest for further evaluation -further laboratory workup pending CT evaluation. -the patient was intubated for airway protection given bilateral vocal cord paralysis and the possibility that his vocal cords may close and not be able to open. -he needs transfer for high level of care, but not emergently, for further evaluation of bilateral vocal cord paralysis as noted below. -continue propofol for sedation and prn fentanyl pushes for pain -goals of care discussion performed with patient and family and patient would like all treatments available, including feeding tube if necessary and possible tracheostomy. -difficult NG / OG tube placement, will re-attempt for feeding access. 4. Odynophagia, acute on chronic, present on admission -there was evidence of oral thrush on initial exam, he had been off of his clotrimazole troches and his nystatin swish and swallow did not seem to be working. -restarted clotrimazole troches which we are unable to give at this time, these also did not help with his symptoms at all. Will hold off on further antifungals at this time as his endoscopy did not show evidence of certain candidiasis. -etiology is unclear at this time. He may benefit from endoscopy or bronchoscopy for further evaluation. The patient is intubated with a size 8 tube in case of this possibility. -I do not suspect odynophagia is related to his vocal cord paralysis, however the etiology is unclear at this time. 5. Chronic atrial fibrillation with RVR, present on admission. RVR resolved. -Continue metoprolol succinate 100 mg twice daily. 6. Supratherapeutic INR, present on admission. -only mildly elevated at 3.2 on admission. 3.1 today. Will continue to follow, continue outpatient dosing of Coumadin. No evidence of active bleeding. Avoid NSAIDs. 7. BPH with bladder outlet obstruction, chronic, present on admission. Stable. -Patient had 600 cc urinary retention with placement of a Velasquez catheter in the ED. -Continued tamsulosin 0.8 mg daily. -he had a similar story with his prior admission but was able to void upon disc harge. Will continue home tamsulosin and repeat trial of void prior to discharge. 8. Gout, chronic, present on admission. Stable. -Continue allopurinol 300 mg daily. 9. Recent subdural hematoma, status post cervical fusion, present on admission. Stable. -Continued cervical collar and plan for outpatient follow-up at scheduled appointment on 10/23/2019 with orthopedic surgery at [facility]. 10. Possible upper respiratory infection - -respiratory panel is negative, he has right-sided tender cervical lymphadenopathy as well as symptoms of rhinorrhea and cough. He has some cobblestoning in his posterior throat. -continue symptomatic care at this time. -it is unclear if this is related to his vocal cord paralysis, pending further evaluation. - procalcitonin is 0.26 Code: Full, surrogate decision maker is patient's . DVT: on coumadin. Dispo: pending transfer for higher level of care, ICU status I spent 45 minutes providing critical care management this patient. This excludes time spent in performing separately billed procedures. Quality VTE Deep Vein Thrombosis/Pulmonary Embolism Present on Admission: No
--- NOTE | 2019-12-06 13:25 | DI.RAD.S_ITS ---
PROCEDURE: XR CHEST 1V INDICATIONS: s/p intubation TECHNIQUE: One view of the chest was acquired. COMPARISON: [facility], , XR CHEST 1V, 12/05/2019, 14:23. FINDINGS: Surgical changes and devices: Partially visualized cervical spine fixation hardware. Lungs and pleura: Low lung volumes with scattered subsegmental atelectasis/scarring. Elevation of the right hemidiaphragm. No pleural effusions or pneumothorax. Mediastinum: Mediastinal contours appear normal. Heart size is normal. Bones and chest wall: No suspicious bony lesions. Overlying soft tissues appear unremarkable. IMPRESSION: Low lung volumes with scattered subsegmental atelectasis/scarring. Dictated by: Ayad Perkins M.D. on 12/06/2019 at 14:39 Approved by: Ayad Perkins M.D. on 12/06/2019 at 14:40
--- NOTE | 2019-12-06 13:36 | PC.NURSE ---
Addendum entered by Shena Starr R.N. 12/06/19 15:39: Titrating Propfol, BP stable. Vent tolerated well. Addendum entered by Shean Starr R.N. 12/06/19 14:16: 1415-Bp improved with increased IVF and Propofol @ 10mcg/kg/min. ETT repositioned and confirmed with 25cm at the corner of mouth. Unsuccessful attempts at NG/OG placement, d/t vocal cords/edema. Original Note: 1315-Transfer to [facility] for urgent intubation, RT and Dr Barclay at bedside. 1340- Preoxygenated, tube passed and confirmed with Co2 monitor color change @ 1345. 8.0Fr tube measuing 22cm @ the lip. BP 68/39 after propofol for intubation. Afib, increased PVCs on tele. 1348-72/42 repeat BP
--- NOTE | 2019-12-06 13:47 | PC.NURSE ---
Addendum entered by Lili Olvera R.N. 12/06/19 13:55: Dr An in to evaluate patient, Dr Martin also at bedside. Orders to intubate patient, patient transferred to ICU. Original Note: 0815 Patient unable to swallow pills or liquids, complaining of pain with swallowing and coughing. Dr Martin notified and patient made NPO. LS coarse, wet, patient having difficulty clearing secretions and coughing. Sats on RA 88-90%, placed on 1L sats 95-97%. Dr Martin in to assess patient, ENT Dr An notified and will come evaluate patient at lunch time. Patient and patients spouse updated. IVF started as ordered.
--- NOTE | 2019-12-06 13:48 | PM.PROC.1 ---
Procedures Date/Time Date of procedure: 12/06/19 Time of procedure: 13:45 Intubation Time out performed: Yes Sedative: other (Propofol) Mg given: 120 Paralytic: succinylcholine Mg given: 100 Laryngoscope: fiber optic video scope (LoPro 4 blade) ET tube size: 8 ET tube uncuffed: Yes Tube secured depth (cm): 22 Tube placement confirmation: visualized tube passing through cords and confirmation by capnometry Patient tolerated procedure: well Intubation complications: none Additional comments: Ez Intubation with Glidescope. I temporized the expected fall in his BP with intermittent boluses of Phenylephrine until Propofol redistributed and BP normalized. CXR ordered and Multiple Spindle Router Operator to determine if he is comfortable with ETT position. Ongoing sedation available from the ICU staff. RT managing the ventilator under direction of Multiple Spindle Router Operator. Care transferred to ICU team at 13:55.
[2019-12-06] MEDS: fentaNYL 100 MCG/2 ML INJ 50 MCG IV ×2 (13:55→16:56)
[2019-12-06] MEDS: propofoL 1,000 MG/100 ML VIAL 6.21 MG IV (14:02)
--- NOTE | 2019-12-06 14:35 | RT ---
Patient intubated by anaesthesia this afternoon to protect his airway. Size 8.0 endotracheal tube was placed. Secured at 25 at the lip with a commercial tube cordon. ETCO2 monitor was also placed at this time. Breath sounds are diminished bilaterally. Good color change on the colormetric CO2.
--- NOTE | 2019-12-06 15:24 | CM.DANOTE ---
Discharge Planning/Care Management DCP: case received, EMR reviewed. Discussed in Team Round. Pt is an 84 year old male who admitted yesterday late afternoon to care of hospitalist team. PCP: listed as Dr. Puente Payer: [facility]. Admission status: in review: per [facility] RN Cande Was updated by Dr. Martin shortly after Rounds that pt was being transferred to the ICU: room [address] Martin was in process of working, in coordination with [facility] RN coordinator Genevieve and Lizandro on a transfer to a higher level of specialty care facility. Will follow up tomorrow if pt is still here. CM Discharge Assessment Start: 12/06/19 15:23 Freq: Status: Active Protocol: Document 12/06/19 15:23 ITV (Rec: 12/06/19 15:24 ITV [id number]) Discharge Planning Assessment History Provided By Medical Record Prior Living Arrangements House Household Members spouse Discharge Plan Transfer to Higher Level of Care Review Status In Process
[2019-12-06 15:44] LABS: HCO3 ABG 35 mmol/L (22-26); Oxygen Saturation ABG 99 % (95-100); PO2 ABG 118 mmHg (80-100); TCO2 ABG 36 mmol/L (21-31); pH ABG 7.48 (7.35-7.45)
[2019-12-06 15:45] LABS: Fractionated Inspired Oxygen 0.45
--- NOTE | 2019-12-06 16:08 | DIET.PN ---
Dietary Progress Note Assessment: 84y M referred to nutrition for NPO c vent status for reccs on tube feeding. Nutrition Diagnosis: Severe Acute PCM r/t difficulty swallowing aeb 11% unintentional wt loss in 3mo (severe), pt intubated today per ENT because having difficulty swallowing, pt recent hx includes feeding tube removal. Please start pt on Glucerna 1.5 when NG/OG tube placed starting at 20mL/hr for first 24h. Pt at high risk for refeeding, check Mg, K+, and Phos labs daily and replete as needed. If pt not transferring to higher level of care, titrate to goal rate as directed below: Patient Metrics Height: 73 in [place] body weight: 79.9 kg (29% above IBW) Actual body weight: 103 kg BMI: 30.1 kg/m2 (NHLBI status - Obesity Class I) Nutritional dosing weight: 103 kg Nutritional Requirements Goal kcal/k kcal/kg Goal protein/k.2 gm/kg Fluid restriction: None Current propofol: Approximately 10 mcg/kg/min (163 kcal/day) Enteral Nutrition Recommendations Glucerna (1.5 Dl) at 55 mL/hr - Start at 20 mL/hr, titrate by 10 mL/hr every 8 hours to goal - 2 additional protein packets (Beneprotein) per day - 450 mL free water flushes every 4 hours (112.5 mL/hr) - Reassess goal feed rate once the patient is no longer receiving propofol - Provides 2191 kcal (21 kcal/kg) (including propofol) and 121 gm (1.2 gm/kg) of protein - Enteral feed and flushes provide 3702 mL (36 mL/kg) of free water Nutritional Monitor Parameters - Elevate head of bed 30-45 degrees while feeding - Check gastric residuals every 4 hours when initiating feeding. May check every 6-8 hours once goal rate is achieved - Hold gastric feeds for residuals more than 500 mL. Avoid holding feeds for residuals < 500 mL without other signs of intolerance
[2019-12-06] MEDS: diphenhydrAMINE 50 MG/ML VIAL IV (18:42)
[2019-12-06] MEDS: propofoL 1,000 MG/100 ML VIAL 12.42 MG IV (21:17)
--- NOTE | 2019-12-06 23:17 | CONS_ITS ---
DATE OF SERVICE: 12/06/2019 CHIEF COMPLAINT: Throat pain, dysphagia, hoarseness. HISTORY OF PRESENT ILLNESS: An 84-year-old male with a complex medical history, was admitted yesterday to [facility] for presumably congestive heart failure exacerbation. His describes throat pain following cervical spine surgery June 2019 requiring an NG tube intermittently postoperatively. It is not clear when the hoarseness began but that may have been more acute. Odynophagia has been constant, although with some exacerbations. In the last few days, things worsened significantly where now he is unable to swallow secondary to the pain and has become significantly hoarse even as of this morning with audible breathing. No known history of vocal cord paralysis in the past. Evidently no suggestion following the spine surgery back in June. No recent chest or neck surgery. Consultation was requested due to the significant hoarseness, odynophagia, and airway issue for flexible laryngoscopy. The admit H and P was reviewed. In addition, the outpatient swallow study report from 10/04/2019 showed trace laryngeal penetration. PCP note 11/13/2019 also reviewed with persistent dry throat, remains anticoagulated for atrial fibrillation. No other current ENT complaints. PAST MEDICAL HISTORY: Reviewed, on the chart. MEDICATIONS: Reviewed, on the chart. ALLERGIES: REVIEWED, ON THE CHART. SOCIAL HISTORY: Reviewed, on the chart. FAMILY HISTORY: Reviewed, on the chart. REVIEW OF SYSTEMS: Reviewed, on the chart. PHYSICAL EXAMINATION: VS on chart GENERAL: Well-developed, well-nourished male with audible inspiratory and expiratory stridor although not in severe acute distress. Nasal oxygen is in place. He is alert and conversant of short answers. HEENT: Head is normocephalic, atraumatic. External ears are normal. Clear ear canals. Normal tympanic membranes with clear middle ears. Nose: External nose is normal. Healthy mucosa bilaterally intranasally. No polyps or purulence seen. Oral Cavity: He is mouth breathing. The oral cavity is dry. Scattered, diffuse small areas possibly consistent with thrush but not generalized. Indirect nasopharyngoscopy and laryngoscopy not possible secondary to hyperactive gag reflex. NECK: Soft and very minimally tender but no palpable discrete masses. PROCEDURE: Flexible laryngoscopy. INDICATIONS: Progressive throat pain, dysphagia, hoarseness, and now airway obstruction, ineffective indirect laryngoscopy. FINDINGS: Normal right nasal cavity and nasopharynx. Normal vallecula and epiglottis. The vocal cords are minimally mobile, nearly midline. Minimal adduction, but essentially no abduction with sniffing. Minimal pooled secretions. No mass or erythema seen. There is some debris in the introitus of the esophagus, cannot rule out very localized thrush. DESCRIPTION OF PROCEDURE: Following verbal consent, the lubricated flexible laryngoscope was passed through the right nasal cavity atraumatically with the above findings noted. Tolerated well. The hospitalist was able to visualize the larynx with me. ASSESSMENT: 1. Bilateral true vocal cord near complete paralysis versus immobility, small visible adduction, no visible Abduction. Unclear etiology but the differential is wide. 2. Dysphagia. 3. Odynophagia, unclear source. 4. Airway obstruction. PLAN: As discussed in detail with the hospitalist. I recommend intubation sooner rather than later to stabilize his airway. It is not clear at this point whether a formal tracheotomy will be necessary as the etiology for the paralysis is not yet known. I recommend a CT neck/chest with contrast. Other evaluation for possible infectious or neoplastic cause. The patient was uneventfully intubated by anesthesia shortly after my exam. The patient and his agree with the plan, understand, and are appreciative. ErciksonSreekanth - LIZA/heath/DIRK doc#: [id number]/job#: [id number] dd: 12/06/2019 16:42:00 dt: 12/06/2019 17:44:00 DICTATING MD/COPIES TO: Sánchez An MD; Martin Puente MD; Jeancarlos Martin M.D. COPIES MNE: ANNIKA; ;
[2019-12-07] VITALS (16 sets, daily range): BP systolic 91–111; BP diastolic 50–60; PULSE 79–89; RESP 13–14; TEMP 36.9–37.1; O2SAT 97–100
--- NOTE | 2019-12-07 | DI.CT.S_ITS ---
PROCEDURE: CT SOFT TISSUE NECK W CON INDICATIONS: VOCAL CORD PARALYSIS TECHNIQUE: After the administration of intravenous contrast, 3.0 mm axial sections acquired from the sella to the aortic arch. Additional oblique axial 3.0 mm sections acquired through the pharynx. 3 mm thick coronal and sagittal reformats were generated. For radiation dose reduction, the following was used: automated exposure control. COMPARISON: [facility], CT, CT CHEST W CON, 12/07/2019, 8:14. [facility], CT, CT HEAD/BRAIN WO/W CON, 12/07/2019, 8:14. FINDINGS: Image quality: Excellent. Lymph nodes: No enlarged lymph nodes seen throughout the neck. Vessels: Visualized vasculature appears patent. Atherosclerotic calcification is noted. Neck spaces: Likely prominent secretions can be seen obscuring the majority of the mucosa of the pharynx. The vocal cords, false vocal cords, pyriform sinuses, epiglottis, vallecula, and tongue base all appear normal. Extramucosal spaces appear unremarkable. Glands: The parotid and submandibular glands appear normal. Thyroid gland demonstrates no significant CT abnormality. Miscellaneous: Visualized brain and orbits appear normal. Lung apices appear clear. Superficial soft tissues appear normal. An endotracheal tube is seen, with the tip 4 cm above the layla. Bones: No suspicious bony lesions. Visualized sinuses and mastoids appear unremarkable. Prominent cervical spine postoperative change is seen, with fixation hardware from C2-T2. The screws appear well placed. No findings of hardware failure or hardware loosening are seen. Prominent portions of the posterior elements have been removed. Underlying moderate to prominent cervical spine degenerative changes are seen. IMPRESSION: No masses or other significant abnormalities are seen to explain the patient's presenting history of bilateral vocal cord paralysis. The tip of the endotracheal tube is seen 4 cm above the layla. Extensive cervical spine postoperative change. Dictated by: Kelton Lane M.D. on 12/07/2019 at 9:21 Approved by: Kelton Lane M.D. on 12/07/2019 at 9:27
[2019-12-07] MEDS: SODIUM CHLORIDE 0.9% 1,000 ML 75 ML IV (00:31)
[2019-12-07] MEDS: propofoL 1,000 MG/100 ML VIAL 12.42 MG IV (03:41)
[2019-12-07 05:06] LABS: Add Manual Diff / Slide Review NO; Basophils Absolute Auto 100 /uL (0-100); Basophils Percent Auto 0.5 % (0-2); Eosinophils Absolute Auto 300 /uL (0-450); Eosinophils Percent Auto 2.7 % (2-4); Hematocrit 30.9 % (41-53); Hemoglobin 10.2 g/dL (13.5-17.5); Lymphocytes Absolute Auto 1900 /uL (1100-4500); Lymphocytes Percent Auto 15.7 % (25-40); Mean Corpuscular HGB Conc 32.9 % (30-36); Mean Corpuscular Hemoglobin 30.1 PG (26-34); Mean Corpuscular Volume 91.3 fL (80-100); Monocytes Absolute Auto 1000 /uL (0-900); Neutrophils Absolute Auto 8700 /uL (1500-7000); Neutrophils Percent Auto 73.1 % (50-75); Platelet Count 153 X10^3/uL (150-400); Red Blood Cell Count 3.38 X10^6/uL (4.5-5.9); Red Cell Distribution Width 16.7 % (11.6-14.8); White Blood Cell Count 11.9 X10^3/uL (4.5-11.0)
[2019-12-07 05:11] LABS: INR 2.8 (0.9-1.3); Prothrombin Time 32.3 SECONDS (10.1-12.7)
[2019-12-07 05:17] LABS: Alanine Aminotransferase 10 IU/L (<50); Albumin 3.2 g/dL (3.5-5.0); Albumin Globulin Ratio 0.9 (1.0-2.8); Alkaline Phosphatase 76 U/L (38-126); Aspartate Aminotransferase 20 IU/L (17-59); BUN Creatinine Ratio 44.5 (6-22); Bilirubin Total 1.1 mg/dL (0.2-1.3); Blood Urea Nitrogen 49 mg/dL (9-20); Calcium 9.3 mg/dL (8.4-10.2); Carbon Dioxide 33 mmol/L (22-32); Chloride 102 mmol/L (98-107); Estimated Glomerular Filt Rate > 60.0 mL/min (>60); Globulin 3.6 g/dL (1.7-4.1); Glucose 85 mg/dL (80-110); HEMOLYSIS < 15 (0-50); Magnesium 1.8 mg/dL (1.6-2.3); Potassium 3.6 mmol/L (3.4-5.1); Sodium 141 mmol/L (137-145); Total Protein 6.8 g/dL (6.3-8.2)
--- NOTE | 2019-12-07 06:33 | PC.NURSE ---
Steamboat Inspector Note-Patient remains calmly sedated with propofol gtt at 20mcg/min, RASS -2, rouses and follows simple directions, soft wrist restraints on. Vent PRVC FIO2 35%, TV 500, PEEP 5, RR 14, breathing with vent, lung sounds coarse anterior, dim bases.
[2019-12-07] MEDS: fentaNYL 100 MCG/2 ML INJ 50 MCG IV ×3 (06:46→11:01)
--- NOTE | 2019-12-07 08:08 | DI.CT.S_ITS ---
PROCEDURE: CT HEAD/BRAIN WO/W CON INDICATIONS: bilateral vocal cord paralysis, scan from head to chest TECHNIQUE: 4.5 mm thick angled axial sections acquired from the foramen magnum to the vertex both before and after the administration of intravenous contrast, with coronal and sagittal reformats. For radiation dose reduction, the following was used: automated exposure control, adjustment of mA and/or kV according to patient size. COMPARISON: [facility], CT, CT CHEST W CON, 12/07/2019, 8:14. [facility], CT, CT SOFT TISSUE NECK W CON, 12/07/2019, 8:14. [facility], CT, CT HEAD/BRAIN WO CON, 07/11/2019, 8:02. FINDINGS: Image quality: Excellent. CSF spaces: Basal cisterns are patent. No extra-axial fluid collections. Ventricles are symmetric in size and shape. Brain: No midline shift. No intracranial bleeds or masses. The previously seen right parietal subdural hemorrhage has resolved and has not recurred. No abnormal intracranial enhancement. There is cerebral volume loss for age. There is periventricular white matter chronic small vessel ischemic change. There is intracranial internal carotid artery atherosclerosis. Skull and face: Calvarium and visualized facial bones appear intact, without suspicious lesions. Sinuses: Visualized sinuses and mastoids are clear. IMPRESSION: No masses or abnormal enhancement can be seen. No acute intracranial hemorrhage is seen. Note is made of age-appropriate brain parenchymal volume loss and chronic small vessel ischemic changes. Dictated by: Kelton Lane M.D. on 12/07/2019 at 9:18 Approved by: Kelton Lane M.D. on 12/07/2019 at 9:20
[2019-12-07] MEDS: PANTOPRAZOLE 40 MG VIAL IV (09:24)
[2019-12-07] MEDS: SODIUM CHLORIDE 0.9% FLUSH 10 ML IV (09:25)
--- NOTE | 2019-12-07 09:53 | DI.CT.S_ITS ---
PROCEDURE: CT CHEST W CON INDICATIONS: bilateral vocal cord paralysis TECHNIQUE: After the administration of intravenous contrast, 5 mm thick sections acquired from the pulmonary apices to the posterior costophrenic angles. 1 mm axial lung, 5 mm thick coronal and sagittal reformats and 7 mm axial MIP were acquired. For radiation dose reduction, the following was used: automated exposure control, adjustment of mA and/or kV according to patient size. COMPARISON: [facility], CR, XR CHEST 1V, 12/06/2019, 13:41. [facility], CT, CT HEAD/BRAIN WO/W CON, 12/07/2019, 8:14. [facility], CT, CT SOFT TISSUE NECK W CON, 12/07/2019, 8:14. FINDINGS: Image quality: There is streak artifact seen through the upper abdomen and lower thorax. Lungs and pleura: An endotracheal tube is seen, with the tip 4 cm above the layla. No acute air space opacities. There is a small right-sided pleural effusion and a trace left-sided. Mild overlying atelectasis can be seen. No pneumothorax. Central and peripheral airways are patent and normal in caliber. Mediastinum: Heart size is mildly enlarged. Coronary artery calcifications are seen. No pericardial effusion. No mediastinal or hilar adenopathy by size criteria. Thoracic aorta and central pulmonary arteries are normal in size. Esophagus is normal in caliber. No hiatal hernia. Bones and chest wall: No suspicious bony lesions. Relatively prominent bony degenerative changes are seen. Prominent flowing anterior osteophytes are seen. No vertebral body compression fractures. No axillary or supraclavicular adenopathy by size criteria. Thyroid gland demonstrates no significant CT abnormality. There is partial visualization of extensive cervical spine postoperative change. Abdomen: Visualized upper abdominal solid organs appear normal. Upper abdominal bowel loops are normal in caliber. IMPRESSION: No masses or abnormal enhancement can be seen to explain the patient's presenting history of vocal cord paralysis. There is a small right-sided pleural effusion and a trace left-sided pleural effusion. Mild cardiomegaly. Prominent flowing anterior osteophytes are seen. Please correlate with potential ankylosing spondylitis. Incidental note is made of: Extensive cervical spine fixation hardware Coronary artery calcification Dictated by: Kelton Lane M.D. on 12/07/2019 at 9:27 Approved by: Kelton Lane M.D. on 12/07/2019 at 9:30
--- NOTE | 2019-12-07 10:35 | P.DS_ITS ---
History of Present Illness History of Present Illness Chief complaint: difficulty breathing/swallow Narrative: Sreekanth Erickson is an 84-year-old male with past medical history of hypertension, hyperlipidemia, AFib on Coumadin, gout, SDH in 06/2019, and CHFrEF(dx 09/2019 admitted here with dyspnea) who presented with shortness of breath for the past week. Patient states that about a week ago his mud mixer helper's on him and switched him from Lasix to torsemide 20 mg. With this change he did have an increase in his urination, but he became increasingly short of breath especially over the past 2 days to the point where he felt short of breath at rest. He states that he has been voiding every 2-3 hours over the past week or so, without any difficulty in initiating stream, and he denies any slow stream. With that changed to torsemide he has lost about 6 lb over the past week, and he also has been dealing with odynophagia since his subdural hemorrhage and has lost about 50 lb over fear of eating due to the pain. He does note some mild lower extremity edema, which he does not feel significantly increased from a week ago. He denies any recent fever, chills. He does note some nasal congestion and runny nose. His throat seems to be more sore over the last couple of days. He denies any nausea, vomiting, hematemesis, melena, bright red blood per rectum, abdominal pain, rash. In the emergency room, patient was mildly hypotensive and mildly tachycardic. He was hypoxic on room air into the mid 80s which improved on 2 L of some supplemental oxygen. His weight is about 5 kg less than his discharge weight in september of 2019. He was given a small bolus of 500 cc, and then 60 mg of Lasix. Initial lab evaluation showed a mild leukocytosis to 13, hemoglobin of 10.9, INR 3.2. ABG showed a pCO2 of 52 which is improved from his prior admission, PO2 of 120 and a pH of 7.42. Chemistries showed a elevated BUN at 61, with creatinine of 1.6 up from his baseline of 1.2-1.3 during his last admission. Troponin was negative, proBNP was 1360. Respiratory panel was negative. Patient was admitted to Medicine for likely CHF exacerbation. Discharge Providers Provider Date of admission: 12/05/19 15:46 Discharge Date: 12/07/19 Primary care physician: Martin Puente MD Consults: 12/05/19 19:59 Consult to Respiratory Therapy Evaluate & Treat Comment: Physician Instructions: Evaluate and treat 12/06/19 13:24 Consult to Dietitian, Adult Routine Comment: Reason For Exam: Patient on Ventilator and NPO Discharge provider: Jeancarlos Martin DO Summary Hospital Course Discharge Diagnosis: 1. Acute hypoxemic respiratory failure in setting of a chronic hypercarbic respiratory failure, present on admission 2. Decompensated congestive heart failure with reduced ejection fraction, present on admission. Improved. 3. Bilateral vocal cord paralysis - 4. Odynophagia, acute on chronic, present on admission 5. Chronic atrial fibrillation with RVR, present on admission. RVR resolved. 6. Supratherapeutic INR, present on admission. 7. BPH with bladder outlet obstruction, chronic, present on admission. Stable. 8. Gout, chronic, present on admission. Stable. 9. Recent subdural hematoma, status post cervical fusion, present on admission. Stable. Hospital Course: Sreekanth Erickson is an 84-year-old male with past medical history significant for hypertension, hyperlipidemia, chronic atrial fibrillation on Coumadin, gout, subdural hemorrhage in June of 2019, chronic odynophagia, and CHF with reduced ejection fraction who was admitted for acute on chronic hypoxemic respiratory failure to be secondary to decompensated heart failure. He was diuresed overnight on HD 0 -1 and his oxygenation was improved, but his overall respiratory impression on exam the morning of HD #1 was slightly worse. His breath sounds were stridorous in nature and ultimately endoscopy with ENT showed bilateral vocal cord paralysis. He was intubated for airway protection after discussion with ENT and patient and his . Further workup at this time included a CT from head to chest which showed prominent flowing anterior osteophytes, but no structural / mass related reasons for the patient's vocal cord paralysis. Overnight after intubation, the patient did spike a low grade temperature to 100.7, blood cultures were taken. There has not been signficant respiratory secretions for a sputum culture at this time, although it was ordered. 1. Acute hypoxemic respiratory failure in setting of a chronic hypercarbic respiratory failure, present on admission -patient with acute hypoxia requiring supplemental oxygen. This was likely secondary to volume overload in setting of decompensated heart failure, however this is now complicated by his vocal cord paralysis. He did not have any evidence aspiration, and the patient was not eating much while here due to odynophagia. -I have stopped diuresis at this point and actually started the patient on fluids is his overall volume status appeared slightly dehydrated upon evaluation prior to intubation. He appears euvolemic today and remains on a small amount of IV fluids. 2. Decompensated congestive heart failure with reduced ejection fraction, present on admission. Improved. -Echocardiogram previously demonstrated decreased LV function with ejection fraction of 30-35% in 09/2020. Repeat echo done 12/06/2019 was essentially unchanged. Heart failure previously thought secondary to SARINA, however with bi lateral vocal cord paralysis they may be more systemic cause pending further workup. -decompensation is possible secondary to a number of underlying etiologies, including weight loss and malnutrition from his odynophagia, BPH with bladder outlet obstruction causing ineffective diuresis as outpatient, or a more systemic disease. 3. Bilateral vocal cord paralysis - -etiology is not entirely clear at this time. Patient has not had any recent fevers suggestive of infection however he did have a small fever to 100.7 shortly after intubation. He does have a new diagnosis of heart failure as of September which may suggest a more systemic disease, as well as a history of neck surgery and a subdural hemorrhage. Etiology remains most likely related to his fusion, however systemic workup is warranted. In lieu of transfer, will defer systemic workup to accepting facility. - ENT findings from endoscopy are: Normal right nasal cavity and nasopharynx. Normal vallecula and epiglottis. The vocal cords are minimally mobile, nearly midline. Minimal adduction, but essentially no abduction with sniffing. Minimal pooled secretions. No mass or erythema seen. There is some debris in the introitus of the esophagus, cannot rule out very localized thrush. -CT head and chest with contrast done 12/07/2019 which did not show any structural cause of vocal cord paralysis. anterior flowing osteophytes were noted. -the patient was intubated for airway protection given bilateral vocal cord paralysis and the possibility that his vocal cords may close and not be able to open. -patient currently on 20-25 of propofol for sedation and prn fentanyl pushes for pain -goals of care discussion performed with patient and family and patient would like all treatments available, including feeding tube if necessary and possible tracheostomy. -difficult NG / OG tube placement, was able to place OG on the 2nd attempt this AM. Stomach contents were aspirated. Placement confirmed by Xray prior to transfer. 4. Odynophagia, acute on chronic, present on admission -there was evidence of oral thrush on initial exam, he had been off of his clotrimazole troches and his nystatin swish and swallow did not seem to be working. Initial exam did show posterior pharyngeal cobblestoning and tender cervical adenopathy. Respiratory panel was negative for viral etiologies. -restarted clotrimazole troches which we are unable to give at this time, these also did not help with his symptoms at all. Will hold off on further antifungals at this time as his endoscopy did not show evidence of certain candidiasis. -He may benefit from bronchoscopy for further evaluation. The patient was intubated with a size 8 tube in case of this possibility. -I do not suspect odynophagia is related to his vocal cord paralysis, however the etiology is unclear at this time. - patient was started on a PPI after intubation, for prophylaxis and possibility of GERD. 5. Chronic atrial fibrillation with RVR, present on admission. RVR resolved. -Continue metoprolol 100 mg BID 6. Supratherapeutic INR, present on admission. -only mildly elevated at 3.2 on admission. 3.1 today. Will continue to follow, continue outpatient dosing of Coumadin. No evidence of active bleeding. Avoid NSAIDs. 7. BPH with bladder outlet obstruction, chronic, present on admission. Stable. -Patient had 600 cc urinary retention with placement of a Velasquez catheter in the ED. -Continued tamsulosin 0.8 mg daily. -he had a similar story with his prior admission but was able to void upon discharge. Will continue home tamsulosin and he should have repeat trial of void prior to discharge. 8. Gout, chronic, present on admission. Stable. -Continue allopurinol 300 mg daily. 9. Recent subdural hematoma 06/2019, status post cervical fusion, present on admission. Stable. Repeat CT head with no hematoma. Code: Full, surrogate decision maker is patient's . DVT: on coumadin. Dispo: Transfer [facility], Dr. Thibodeaux accepting, for higher level of care. I spent 45 minutes providing critical care management this patient. This excludes time spent in performing separately billed procedures. Time Spent with Patient Time spent: Greater than 30 minutes Exam Vital Signs (past 8 hours): - 12/07/19 03:00 12/07/19 04:00 12/07/19 04:30 Temperature 98.8 F Pulse Rate 82 85 Respiratory Rate 13 Blood Pressure 91/54 L 94/51 L Pulse Oximetry 98 97 12/07/19 05:00 12/07/19 06:00 12/07/19 07:00 Temperature Pulse Rate 88 79 83 Respiratory Rate Blood Pressure 107/50 L 110/60 93/50 L Pulse Oximetry Oxygen Delivery Method Mechanical Ventilation Oxygen Flow Rate 45 Narrative Exam Narrative: GENERAL APPEARANCE: Elderly male, intubated and sedated. Opens eyes to voice then falls asleep quickly. SKIN: Inspection of the skin reveals no rashes, ulcerations or petechiae. HEENT: Intubated, dry oral mucosa, NCAT. NECK: improved right cervical lymphadenopathy, no thyroid enlargement. CHEST: Normal AP diameter and normal contour without any kyphoscoliosis. LUNGS: Auscultation of the lungs were clear to auscultation bilaterally. CARDIOVASCULAR: There was a regular rate and rhythm without any murmurs, gallops, rubs. Peripheral pulses were 2+ and symmetric. ABDOMEN: Soft, non-distended with normal bowel sounds. No ascites was noted. MUSCULOSKELETAL: There was no tenderness or effusions noted. Muscle strength and tone were normal. EXTREMITIES: No cyanosis, clubbing. There is minimal to trace peripheral edema NEUROLOGIC: Sedated. Opens eyes to voice then falls asleep quickly. Follows simple commands and is able to move all extremities equally. Objective Labs Result Diagrams: 12/07/19 04:25 12/07/19 04:25 Labs: Laboratory Results - last 24 hr 12/05/19 12/06/19 12/07/19 14:14 14:48 04:25 WBC 11.9 H RBC 3.38 L Hgb 10.2 L Hct 30.9 L MCV 91.3 MCH 30.1 MCHC 32.9 RDW 16.7 H Plt Count 153 Neut % (Auto) 73.1 Lymph % (Auto) 15.7 L Maverick % (Auto) 8.0 Eos % (Auto) 2.7 Baso % (Auto) 0.5 Neut # (Auto) 8700 H Lymph # (Auto) 1900 Maverick # (Auto) 1000 H Eos # (Auto) 300 Baso # (Auto) 100 PT INR ABG pH 7.42 7.48 H ABG pCO2 52.0 H 46.0 H ABG pO2 120 H 118 H ABG HCO3 34 H 35 H ABG Total CO2 35 H 36 H ABG O2 Saturation 99 99 ABG Base Excess 9.0 H 11.0 H FiO2 35 0.45 Sodium Potassium Chloride Carbon Dioxide BUN Creatinine Estimated GFR BUN/Creatinine Ratio Glucose Calcium Magnesium Total Bilirubin Conjugated Bilirubin Unconjugated Bilirubin AST ALT Alkaline Phosphatase Total Protein Albumin Globulin Albumin/Globulin Ratio 12/07/19 12/07/19 04:25 04:25 WBC RBC Hgb Hct MCV MCH MCHC RDW Plt Count Neut % (Auto) Lymph % (Auto) Maverick % (Auto) Eos % (Auto) Baso % (Auto) Neut # (Auto) Lymph # (Auto) Maverick # (Auto) Eos # (Auto) Baso # (Auto) PT 32.3 H INR 2.8 H ABG pH ABG pCO2 ABG pO2 ABG HCO3 ABG Total CO2 ABG O2 Saturation ABG Base Excess FiO2 Sodium 141 Potassium 3.6 Chloride 102 Carbon Dioxide 33 H BUN 49 H Creatinine 1.10 Estimated GFR > 60.0 BUN/Creatinine Ratio 44.5 H Glucose 85 Calcium 9.3 Magnesium 1.8 Total Bilirubin 1.1 Conjugated Bilirubin 0.0 Unconjugated Bilirubin 1.0 AST 20 ALT 10 Alkaline Phosphatase 76 Total Protein 6.8 Albumin 3.2 L Globulin 3.6 Albumin/Globulin Ratio 0.9 L Discharge Plan Discharge Plan Disposition: General Acute Hospital Discharge orders & Medications Follow up/Referrals: Martin Puente MD [Primary Care Provider] - Discharge Data Primary Care Provider: Martin Puente Quality VTE Deep Vein Thrombosis/Pulmonary Embolism Present on Admission: No
[2019-12-07] MEDS: propofoL 1,000 MG/100 ML VIAL 21.735 MG IV (11:03)
--- NOTE | 2019-12-07 11:37 | DI.RAD.S_ITS ---
PROCEDURE: XR CHEST 1V INDICATIONS: OG tube placement TECHNIQUE: One view of the chest was acquired. COMPARISON: [facility], CR, XR CHEST 1V, 12/06/2019, 13:41. FINDINGS: Surgical changes and devices: OG tube projects across the GE junction with side port at the level of the gastroesophageal junction. OG tube could be advanced several centimeters. Lungs and pleura: Lungs are clear. No pleural effusions or pneumothorax. Mediastinum: Mediastinal contours appear normal. Heart size is normal. Bones and chest wall: No suspicious bony lesions. Overlying soft tissues appear unremarkable. IMPRESSION: Tip of OG tube in proximal stomach with side-port at the GE junction. OG tube could be advanced several centimeters. Dictated by: Shanika Sow MD, PhD on 12/07/2019 at 12:07 Approved by: Shanika Sow MD, PhD on 12/07/2019 at 12:08
--- NOTE | 2019-12-07 11:56 | PC.NURSE ---
Addendum entered by Shena Starr R.N. 12/07/19 12:52: 1230-Team for transport arrived, at bedside to update on plan for transport, and Room number d633. Report called into [facility] in [facility]. Original Note: Am shift Pt is alert this am, able to make eye contact with this RN. Updated on POC and goal for transport to another facility later today. Pt nods in understanding. CT with contrast obtained this AM, Pt tolerated well. Fentanyl given for comfort, Dr Martin was able to get OG tube passed with some difficulty, confirmed placement with xray. Transport initiated to [facility]. Consent obtained with via Phone with Coordinator Lili Olvera RN.
== END 2019-12-07 14:00 | disposition short-term general hospital (02) | DRG 208 ==
LOC: ED 15:45 → AC 15:46 → ICU 12-06 15:17 → AC 12-07 08:05
PROVIDERS: Admitting Provider Internal Medicine; Emergency Provider Emergency Medicine; PCP Family Medicine; Referring Provider Emergency Medicine; Visit Provider Internal Medicine
DX: J96.01 Acute respiratory failure with hypoxia (principal); I50.23 Acute on chronic systolic (congestive) heart failure; E43 Unspecified severe protein-calorie malnutrition; I48.20 Chronic atrial fibrillation, unspecified; N13.8 Other obstructive and reflux uropathy; I11.0 Hypertensive heart disease with heart failure; J96.12 Chronic respiratory failure with hypercapnia; Z99.81 Dependence on supplemental oxygen; Z79.01 Long term (current) use of anticoagulants; E78.5 Hyperlipidemia, unspecified; M10.9 Gout, unspecified; R13.19 Other dysphagia; R79.1 Abnormal coagulation profile; N40.1 Benign prostatic hyperplasia with lower urinary tract symptoms; F17.210 Nicotine dependence, cigarettes, uncomplicated; J44.9 Chronic obstructive pulmonary disease, unspecified; J38.02 Paralysis of vocal cords and larynx, bilateral; Z68.28 Body mass index [BMI] 28.0-28.9, adult
CPT/HCPCS: 36415; 36600; 51701; 51705; 51798; 70470; 70491; 71045; 71260; 80048; 80053; 80076; 82805; 83690; 83735; 83880; 84145; 84439; 84443; 84484; 85025; 85610; 85730; 87040; 87633; 93005; 93306; 94002; 94003; 94640; 94660; 94762; 94770; 94799; 96361; 96374; 99285; C9113; J0330; J1200; J1940; J2704; J3010; Q9957; Q9967